=== PATIENT | male | born 1965 | race Caucasian/White ===

== ENCOUNTER 2021-08-03 13:08 | Emergency (ER) | payer MEDICARE, SELFPAY ==
[2021-08-03 13:19] VITALS: BP 142/87; PULSE 92; RESP 16; TEMP 36.8; O2SAT 98
--- NOTE | 2021-08-03 13:44 | ED.DENTAL ---
HPI - Dental/Oral General Chief complaint: Dental/Oral Stated complaint: toothache Time Seen by Provider: 08/03/21 13:11 Source: patient and RN notes reviewed Mode of arrival: ambulatory Limitations: no limitations History of Present Illness Complaint: tooth pain Onset (ago): day(s) (1) Duration: constant Severity: moderate Severity scale (1-10): 7 Relieving factors: NSAIDs Exacerbating factors: chewing Context: history of dental caries Related Data Allergies Allergy/AdvReac Type Severity Reaction Status Date / Time prednisone Allergy Unknown Verified 08/03/21 13:23 Review of Systems Review of Systems: All systems reviewed & are unremarkable except as noted in HPI and below ENT: Comments: toothache. PMFSH Past Medical History Medical History Toothache Exam Const: General: no acute distress Nutritional Appearance: well nourished Orientation/consciousness: patient oriented x3 Limitations: no limitations HENMT: Ears: external ears normal and TM's normal bilaterally General nose exam: Normal external nose present and Normal nares present Mouth: Yes moist mucous membranes Other: multiple carious teeth. Eyes: Conjunctivae: conjunctivae normal Pupils: Equal, round and reactive pupils present EOM: EOMs intact bilaterally Neck: Neck: normal visual inspection and no lymphadenopathy Chest: Chest palpation & inspection: normal inspection of the chest Resp: Effort & Inspection: normal respiratory effort Auscultation: clear to auscultation bilaterally Cardio: Rate: regular rate Rhythm: regular rhythm GI: Inspection: distended GI Palp: Yes Soft to palpation and Yes Tenderness to palpation present (GI) Percussion: Yes normal to percussion : General: Yes no CVA tenderness Male General Exam: Yes normal external exam Testes: Testes normal Back/Spine/Pelvis: Back: no CVA tenderness Skin: General skin exam: normal color Rashes: no rashes Neuro: General: patient oriented x3, moves all extremities, no meningeal signs, no focal motor deficits and CN's II-XI intact bilaterally Extrem: General: normal to inspection and no pedal edema Psych: Appearance: grossly normal and well kempt Mental Status: mental status grossly normal Affect: normal affect Thought content: Yes Normal thought content present Course Course Emergency Course: pt was stable and less pain-ful in the ED. Reevaluation(s) Reevaluation #1: VSS. pt was comfortable in the ED. Date: 08/03/21 Time: 13:54 Vital Signs Vital signs: Vital Signs Temperature 36.8 C 08/03/21 13:19 Pulse Rate 92 08/03/21 13:19 Respiratory Rate 16 08/03/21 13:19 Blood Pressure 142/87 H 08/03/21 13:19 Pulse Oximetry 98 08/03/21 13:19 Temperature 36.8 C 08/03/21 13:19 Pulse Rate 92 08/03/21 13:19 Respiratory Rate 16 08/03/21 13:19 Blood Pressure 142/87 H 08/03/21 13:19 Pulse Oximetry 98 08/03/21 13:19 MDM - Dental/Oral Differential Diagnosis Differential diagnosis: Likely dental caries and toothache Medical Records Attestation: I reviewed the patient's medical records. Critical Care Time Critical Care Time Critical Care Time: No Total Critical Care Time: 0 Discharge Plan Discharge Clinical Impression: Toothache, Dental caries Patient Disposition: Home, Self-Care Condition: Stable Instructions: Antibiotic Form, Toothache (ED) Additional Instructions: Home. May RTC prn. Dentist in 1-2 days. Rx below. Prescriptions: New amoxicillin 875 mg tablet 875 mg PO Q12H Qty: 20 RF: 0 ibuprofen 800 mg tablet 800 mg PO TID Qty: 20 RF: 0 omeprazole magnesium [Prilosec OTC] 20 mg tablet,delayed release (DR/EC) 20 mg PO BID Qty: 20 RF: 0 Follow-up/Referrals: Emily,MD Marquis [Primary Care Provider] - Stand Alone Forms: Work/School Release IP Time of Disposition: 14:00
[2021-08-03] MEDS: KETOROLAC (*BKC) 60 MG/2 ML VIAL IM (13:56)
[2021-08-03 14:19] VITALS: BP 123/83; PULSE 75; RESP 16; O2SAT 100
== END 2021-08-03 14:20 | disposition home or self-care (01) ==
PROVIDERS: Emergency Provider Emergency Medicine; PCP Family Medicine
DX: K08.89 Other specified disorders of teeth and supporting structures (principal); K02.9 Dental caries, unspecified
CPT/HCPCS: 96372; 99283; J1885

== ENCOUNTER 2021-09-18 16:04 | Emergency (ER) | payer MEDICARE, SELFPAY ==
[2021-09-18 16:20] VITALS: PULSE 83; RESP 18; TEMP 37; O2SAT 98
--- NOTE | 2021-09-18 16:34 | PC.NURSE ---
Initial call made to [facility] per Dr. Lyle request to arrange for transport. No US available at this time.
[2021-09-18] MEDS: KETOROLAC (*BKC) 60 MG/2 ML VIAL IM (16:50)
--- NOTE | 2021-09-18 16:52 | PC.NURSE ---
Pt requesting to go to [facility] [place] in [place] since we are unable to perform US. Dr. Lyle notified.
--- NOTE | 2021-09-18 17:10 | PC.NURSE ---
[facility] did not have in house US available. Dr. Lyle and pt notified. Pt requested to go to [facility].
--- NOTE | 2021-09-18 17:18 | PC.NURSE ---
[facility] did not have in house US available. Dr. Lyle and pt notified. Per Dr. Lyle pt will need to go to [facility] or [place] for further workup.
--- NOTE | 2021-09-18 17:24 | PC.NURSE ---
Pt notified of options to go to [place], [place], or [facility] for further workup. Pt stated he would just go home and f/u with PCP in the morning. Dr. Lyle notified and stated pt would need to sign AMA form.
[2021-09-18 17:29] LABS: Basophils Absolute Auto 0.05 K/mm3 (0.00-0.10); Basophils Percent Auto 0.6 % (0.0-1.0); Eosinophils Absolute Auto 0.12 K/mm3 (0.02-0.50); Eosinophils Percent Auto 1.5 % (1.0-6.0); Hematocrit 42.3 % (40.0-54.0); Hemoglobin 13.7 g/dL (14.0-18.0); Immature Granulocyte Absolute 0.07 K/mm3 (0.00-0.00); Immature Granulocyte Percent A 0.9 % (0.0-0.0); Lymphocytes Percent Auto 18.8 % (18.0-42.0); Mean Corpuscular HGB Conc 32.4 g/dL (32.0-36.0); Mean Corpuscular Hemoglobin 30.7 pg (27.0-31.0); Mean Corpuscular Volume 94.8 fL (78.0-102.0); Mean Platelet Volume 10.6 fl (8.7-11.0); Monocytes Absolute Auto 0.51 K/mm3 (0.10-0.90); Monocytes Percent Auto 6.4 % (2.0-11.0); Neutrophils Absolute Auto 5.7 K/mm3 (1.7-7.2); Neutrophils Percent Auto 71.8 % (50.0-70.0); Platelet Count Result 183 K/mm3 (150-420); Red Blood Count 4.46 M/mm3 (4.70-6.10); Red Cell Distribution Width 12.3 % (11.6-14.4)
== END 2021-09-18 17:50 | disposition left against medical advice (07) ==
LOC: CHSED 16:06
PROVIDERS: Emergency Provider Emergency Medicine; PCP Family Medicine
DX: R10.9 Unspecified abdominal pain (principal)
CPT/HCPCS: 36415; 85025; 96372; 99199; 99283; J1885

== ENCOUNTER 2021-12-29 20:30 | Emergency (ER) | payer MEDICARE, SELFPAY ==
--- NOTE | ~2021-12-29 | CT_ITS ---
EXAMINATION: CT pelvis wo con DATE: 12/29/2021 22:53 INDICATION: Left pelvic pain. Fall. TECHNIQUE: Computed tomography (CT) of the pelvis was performed without intravenous contrast. Automat ed exposure control and iterative reconstruction technique were employed. The dose-length product was 921.30 mGy-cm. COMPARISON: None FINDINGS: There is a stent in right common iliac artery. There are bilateral inguinal hernias contain ing fat. There are no dilated loops of bowel. The appendix is normal. There are no pathologically enl arged lymph nodes. There is no free intraperitoneal fluid. Bone alignment is normal. No fracture. The re is moderate osteoarthritis of the hips. There is a benign bone island in right inferior pubic juventino s. IMPRESSION: 1. No fracture. 2. Moderate osteoarthritis of the hips. 3. Bilateral inguinal hernias containing fat. Reviewed, dictated and finalized at location A. FILTER OPERATOR
--- NOTE | ~2021-12-29 | CT_ITS ---
EXAMINATION: CT lumbar spine wo con DATE: 12/29/2021 22:53 INDICATION: Low back pain. Fall. TECHNIQUE: Computed tomography (CT) of the lumbar spine was performed without intravenous contrast. A utomated exposure control and iterative reconstruction technique were employed. The dose-length produ ct was 1268.47 mGy-cm. COMPARISON: Lumbar spine radiographs 01/01/2012 FINDINGS: There are multiple nonobstructing stones in the kidneys measuring up to 6 mm on the left. T here is a stent in right common iliac artery. Partially visualized are epidural electrodes. Partially visualized is an intrathecal catheter. Bone alignment is normal. Vertebral body heights are normal. There is mildly decreased disc height at L4-L5 and L5-S1. The following disc levels are specifically discussed: L1-L2: The disc does not extend beyond the endplate margin. There is moderate right and mild left fac et joint osteoarthritis. There is no neural foraminal stenosis. There is no central canal stenosis. L2-L3: The disc is mildly bulging. There is mild right and moderate left facet joint osteoarthritis. There is mild bilateral neural foraminal stenosis. There is no central canal stenosis. L3-L4: The disc is bulging. There is mild bilateral facet joint osteoarthritis. There is mild bilater al neural foraminal stenosis. There is mild central canal stenosis. L4-L5: The disc is bulging. There is mild bilateral facet joint osteoarthritis. There is mild right a nd moderate left neural foraminal stenosis. There is mild central canal stenosis. L5-S1: The disc is bulging. There is mild bilateral facet joint osteoarthritis. There is mild bilater al neural foraminal stenosis. There is mild central canal stenosis. IMPRESSION: 1. Mild lumbar spondylosis. Reviewed, dictated and finalized at location A. SION CONTROLLER IMPRESSION: 1. Mild lumbar spondylosis.
[2021-12-29 21:03] VITALS: BP 124/67; PULSE 108; RESP 19; TEMP 36.9; O2SAT 96
--- NOTE | 2021-12-29 21:16 | ED.FALL ---
HPI - Fall General Chief Complaint: Fall Stated Complaint: fell down stairs Time Seen by Provider: 12/29/21 20:33 Source: patient Mode of arrival: ambulatory Limitations: no limitations History of Present Illness HPI Narrative: 52-year-old man with a history of chronic low back pain status post stimulator and status post pain pump comes in today complaining of pain in his left posterior hip and pelvis and his low back after he fell down some steps approximately 20 minutes prior to arrival. States that his feet slipped as he was going down the steps and he landed on his backside. He denies any numbness, weakness or tingling other than the weakness that has been extent in his left leg after a workplace injury years ago. He denies other injuries. complaint: fall Onset (ago): minute(s) (20) Fall from: standing Fall witnessed: no Place fall occurred: home Loss of consciousness: none Prolonged down time: no Symptoms prior to fall: none Location of injury: back and pelvis Severity scale (1-10): 10 Quality: sharp and aching Associated symptoms (after fall): denies Related Data Allergies Allergy/AdvReac Type Severity Reaction Status Date / Time prednisone Allergy Unknown Verified 12/29/21 21:12 Review of Systems Review of Systems: All systems reviewed & are unremarkable except as noted in HPI and below Cardiovascular: Cardiovascular: Denies chest pain Respiratory: Respiratory: Denies cough and Denies dyspnea Gastrointestinal: Gastrointestinal: Denies abdominal pain, Denies nausea and Denies vomiting Genitourinary: Genitourinary: Denies hematuria Integumentary/Breasts: Skin/Breast: Denies erythema and Denies rash Neurologic: Reports as per HPI, Denies dizziness, Denies syncope, Reports focal weakness and Denies numbness Hematologic/Lymphatic: Hematologic/Lymphatic: Denies easy bleeding and Denies easy bruising PMF Past Medical History Medical History (Updated 12/29/21 @ 23:32 by Seth Doe MD) Chronic low back pain Toothache Social History Social History (Updated 12/29/21 @ 21:26 by Seth Doe MD) Smoking status: Current every day smoker Tobacco type: smokeless tobacco Alcohol intake: former Substance use: never Living arrangements: alone Exam Const: General: healthy appearing and alert Orientation/consciousness: patient oriented x3 Limitations: no limitations Other: Moderate acute distress. Resp: Effort & Inspection: normal respiratory effort and not labored Auscultation: clear to auscultation bilaterally, no rales, no rhonchi and no wheezes Cardio: Rate: regular rate Rhythm: regular rhythm Heart sounds: no murmurs Skin: General skin exam: normal color, no jaundice and no pallor Rashes: no rashes Neuro: General: patient oriented x3, moves all extremities, no focal motor deficits and CN's II-XI intact bilaterally Speech: normal speech Extrem: General: normal to inspection and no clubbing, cyanosis or edema Psych: Appearance: grossly normal and well kempt Mental Status: mental status grossly normal Affect: normal affect Attitude: cooperative Thought content: Yes Normal thought content present Course Vital Signs Vital signs: Vital Signs Temperature 36.9 C 12/29/21 21:03 Pulse Rate 108 H 12/29/21 21:03 Respiratory Rate 19 12/29/21 21:03 Blood Pressure 124/67 12/29/21 21:03 Pulse Oximetry 96 12/29/21 21:03 Temperature 36.9 C 12/29/21 21:03 Pulse Rate 108 H 12/29/21 21:03 Respiratory Rate 19 12/29/21 21:03 Blood Pressure 124/67 12/29/21 21:03 Pulse Oximetry 96 12/29/21 21:03 Discharge Plan Discharge Clinical Impression: Contusion of back Qualifiers: Encounter type: initial encounter Laterality: left Qualified Code(s): S20.222A - Contusion of left back wall of thorax, initial encounter Low back strain Qualifiers: Encounter type: initial encounter Qualified Code(s): S39.012A - Strain of muscle, fascia and tendon of low
[2021-12-29] MEDS: KETOROLAC (*BKC) 60 MG/2 ML VIAL IM (21:40)
[2021-12-29] MEDS: HYDROcodone/acetaminophen (*CRX) 5-325 MG TABLET 1 TAB PO (23:01)
[2021-12-29 23:47] VITALS: BP 164/83; PULSE 93; RESP 16; TEMP 37.2; O2SAT 96
== END 2021-12-30 00:22 | disposition home or self-care (01) ==
PROVIDERS: Emergency Provider Emergency Medicine; PCP Family Medicine
DX: S20.222A Contusion of left back wall of thorax, initial encounter (principal); S39.012A Strain of muscle, fascia and tendon of lower back, initial encounter; W10.9XXA Fall (on) (from) unspecified stairs and steps, initial encounter
CPT/HCPCS: 72131; 72192; 96372; 99284; A9270; J1885

== ENCOUNTER 2022-01-12 17:29 | Emergency (ER) | payer MEDICARE, SELFPAY ==
--- NOTE | ~2022-01-12 | CT_ITS ---
EXAMINATION: CT abdomen pelvis w con DATE: 01/12/2022 19:15 INDICATION: Lower abdominal pain for 1.5 months TECHNIQUE: Computed tomography (CT) of the abdomen and pelvis was performed with 100 CC Omnipaque 350 intravenous contrast. Automated exposure control and iterative reconstruction technique were employe d. Exam dose: 1240.91 mGy-cm total exam DLP. COMPARISON: 12/29/2021 CT pelvis FINDINGS: The lung bases are clear. Normal heart size. No pericardial or pleural effusion. There is contraction of the gallbladder. The gallbladder wall measures approximately 3 mm thickness w hich may be due to chronic cholecystitis; the thickness appears more prominent than expected merely f or lack of distention. No obvious gallstones are noted but ultrasound would be more sensitive for det ection of gallstones. No pericholecystic fluid collection. No bile duct dilatation. No hepatic, splenic, pancreatic, adrenal space-occupying mass lesion. Approximately 1 cm hypoenhancing area in the anterior mid left kidney with attenuation 32 Hounsfield units. This is indeterminate. Probable 4.5 mm mid to lower anterior left renal cysts, possibly smaller lower pole left renal cyst. There are 2 approximately 3.5 mm nonobstructing left renal calculi. There are 4 nonobstructing right renal calculi measuring up to approximately 3.7 mm maximal dimension. No ureteral calculus or hydrour eteronephrosis. Normal caliber and atherosclerotic calcification of the abdominal aorta. In the right common iliac en dovascular stent. No intraperitoneal or retroperitoneal or pelvic mass lesion or adenopathy or ascite s is detected. The urinary bladder and prostate gland appear unremarkable for age. Bilateral fat-containing inguinal hernias. Normal appendix. No bowel obstruction, bowel wall thickening, pneumatosis or intraperitoneal free air . Very small fat-containing umbilical hernia. Battery packs are noted in the right anterior and left posterior lateral abdominal lewis, each with w ith leads extending into thoracic spinal canal. . Approximately 9 mm T11 osteosclerotic lesion and 8 mm osteosclerotic lesion of the right inferior p ubic ramus are probably bone islands. Osteosclerotic prostate skeletal metastases are not definitivel y excluded. If clinically desired, repeat nuclear bone scan can differentiate these. IMPRESSION: Contracted gallbladder with borderline thickening of the wall; consider gallbladder ultr asound as clinically appropriate Nonspecific indeterminate 1 cm hypoenhancing lesion in the anterior mid left kidney A couple of 4.5 mm and smaller left renal cysts are suggested Bilateral nonobstructive nephrolithiasis Bilateral fat-containing inguinal hernias Nonspecific osteosclerotic lesions of T11 and right inferior pubic ramus significant statistically th ashutosh are most likely bone islands, but prostate metastases are not definitively excluded. Radiographic bone scan can't differentiate these possibilities if clinically desired 2 battery packs with leads into the thoracic spinal canal Reviewed, dictated and finalized at Location A. Reviewed, dictated and finalized at location A. IMPRESSION: Contracted gallbladder with borderline thickening of the wall; con printing press operator apprentice gallbladder ultrasound as clinically appropriate Nonspecific indeterminate 1 cm hypoenhancing lesion in the anterior mid left ki dney A couple of 4.5 mm and smaller left renal cysts are suggested Bilateral nonobstructive nephrolithiasis Bilateral fat-containing inguinal hernias Nonspecific osteosclerotic lesions of T11 and right inferior pubic ramus signif icant statistically these are most likely bone islands, but prostate metastases are not definitively excluded. Radiographic bone scan can't differentiate thes e
[2022-01-12 17:46] VITALS: BP 170/105; PULSE 117; RESP 20; TEMP 36.3; O2SAT 97
[2022-01-12 18:12] LABS: Basophils Absolute Auto 0.04 K/mm3 (0.00-0.10); Basophils Percent Auto 0.6 % (0.0-1.0); Eosinophils Absolute Auto 0.09 K/mm3 (0.02-0.50); Eosinophils Percent Auto 1.3 % (1.0-6.0); Hematocrit 39.7 % (40.0-54.0); Hemoglobin 13.5 g/dL (14.0-18.0); Immature Granulocyte Absolute 0.03 K/mm3 (0.00-0.00); Immature Granulocyte Percent A 0.4 % (0.0-0.0); Lymphocytes Absolute Auto 1.52 K/mm3 (1.10-4.50); Lymphocytes Percent Auto 21.3 % (18.0-42.0); Mean Corpuscular Hemoglobin 31.3 pg (27.0-31.0); Mean Corpuscular Volume 91.9 fL (78.0-102.0); Mean Platelet Volume 10.7 fl (8.7-11.0); Monocytes Absolute Auto 0.41 K/mm3 (0.10-0.90); Monocytes Percent Auto 5.7 % (2.0-11.0); Neutrophils Absolute Auto 5.1 K/mm3 (1.7-7.2); Neutrophils Percent Auto 70.7 % (50.0-70.0); Platelet Count Result 208 K/mm3 (150-420); Red Blood Count 4.32 M/mm3 (4.70-6.10); Red Cell Distribution Width 12.5 % (11.6-14.4); White Blood Count 7.1 K/mm3 (4.8-10.8)
[2022-01-12] MEDS: MORPHINE SULFATE (*CRX) 2 MG/ML INJ IV PUSH ×2 (18:12→19:23)
[2022-01-12 18:16] LABS: Add Urine Microscopic? NO; Appearance Urine Clear (Clear); Bilirubin Urine Negative (Negative); Blood Urine Negative (Negative); Color Urine Light Yellow (Yellow); Glucose Urine UA Negative (Negative); Ketones Urine Negative (Negative); Leukocyte Esterase Ur Negative (Negative); Nitrate Urine Negative (Negative); Protein Urine Negative (Negative); Specific Grav Ur >= 1.030 (1.010-1.020); Urobilinogen Urine 0.2 mg/dL (0.2-1.0)
[2022-01-12 18:24] LABS: Alanine Aminotransferase 38 U/L (16-63); Albumin Level 3.8 g/dL (3.4-5.0); Alkaline Phosphatase 87 U/L (46-116); Anion Gap 11 mmol/L (8-16); Aspartate Amino Transferase 16 U/L (15-37); Bilirubin,Total 0.3 mg/dL (0.00-1.00); Blood Urea Nitrogen 13 mg/dL (7-18); Calcium 10.4 mg/dL (8.5-10.1); Carbon Dioxide 25 mmol/L (21-32); Chloride 105 mmol/L (98-108); Estimated CRCL calculation 111 ml/min; Estimated Glomerular Filt Rate > 60; Glucose 121 mg/dL (70-99); Osmolality Calculated 293 mOsm/kg (285-295); Potassium 3.5 mmol/L (3.5-5.1); Sodium 141 mmol/L (136-145); Total Protein 6.7 g/dL (6.4-8.2)
--- NOTE | 2022-01-12 18:32 | ED.ABDPAIN ---
HPI - Abdominal Pain General Chief Complaint: Abdominal Pain Stated Complaint: lower gastro problems Source: patient Mode of arrival: ambulatory Limitations: no limitations History of Present Illness HPI narrative: this is a 56-year-old gentleman that presents with lower abdominal, the patient states that he has been having this abdominal discomfort off and on for over a month has an appointment with GI specialist on Friday, but the pain had been quite intense and could not wait till Friday presented to the ER. The patient states that there is no diarrhea constipation no nausea vomiting no fever chills no chest pain or shortness of breath. The patient was started on Protonix but that did not help and he currently stop taking the Protonix. There is no dysuria no hematuria no flank pain. MD elicited complaint: abdominal pain Onset (ago): hour(s) Pain Consistency: constant Location: periumbilical Severity: moderate Quality: aching Related Data Allergies Allergy/AdvReac Type Severity Reaction Status Date / Time prednisone Allergy Unknown Verified 01/12/22 17:51 Review of Systems Review of Systems: All systems reviewed & are unremarkable except as noted in HPI and below PMFSH Past Medical History Medical History Chronic low back pain Toothache Social History Social History Smoking status: Current every day smoker Tobacco type: smokeless tobacco Alcohol intake: former Substance use: never Exam Const: General: no acute distress and alert Orientation/consciousness: patient oriented x3 HENMT: Head: normal to inspection Eyes: Conjunctivae: conjunctivae normal Pupils: Equal, round and reactive pupils present Neck: Neck: normal visual inspection Chest: Chest palpation & inspection: normal inspection of the chest Resp: Effort & Inspection: normal respiratory effort Auscultation: clear to auscultation bilaterally Cardio: Rate: regular rate Rhythm: regular rhythm GI: GI Palp: Yes Soft to palpation and Yes Tenderness to palpation present (GI) Percussion: Yes normal to percussion : Testes: Testes normal Urinary Catheter: Urinary Catheter: patent and draining Back/Spine/Pelvis: Back: no CVA tenderness Skin: General skin exam: normal color Rashes: no rashes Neuro: General: patient oriented x3 and moves all extremities Extrem: General: normal to inspection and no pedal edema Psych: Mental Status: mental status grossly normal Affect: normal affect Course Course Emergency Course: Patient received IV morphine and pain has improved, CT scan of the abdomen and pelvis was reviewed with patient as well as blood work that was performed. Vital Signs Vital signs: Vital Signs Temperature 36.3 C L 01/12/22 17:46 Pulse Rate 117 H 01/12/22 17:46 Respiratory Rate 20 01/12/22 17:46 Blood Pressure 170/105 H 01/12/22 17:46 Pulse Oximetry 97 01/12/22 17:46 Temperature 36.3 C L 01/12/22 17:46 Pulse Rate 117 H 01/12/22 17:46 Respiratory Rate 20 01/12/22 17:46 Blood Pressure 170/105 H 01/12/22 17:46 Pulse Oximetry 97 01/12/22 17:46 MDM - Abdominal Pain Lab Data Result diagrams: 01/12/22 18:03 01/12/22 18:03 Labs: Lab Results 01/12/22 01/12/22 01/12/22 Range/Units 17:53 18:03 18:03 WBC 7.1 (4.8-10.8) K/mm3 RBC 4.32 L (4.70-6.10) M/mm3 Hgb 13.5 L (14.0-18.0) g/dL Hct 39.7 L (40.0-54.0) % MCV 91.9 (78.0-102.0) fL MCH 31.3 H (27.0-31.0) pg MCHC 34.0 (32.0-36.0) g/dL RDW 12.5 (11.6-14.4) % Plt Count 208 (150-420) K/mm3 MPV 10.7 (8.7-11.0) fl Immature Gran % (Auto) 0.4 H (0.0-0.0) % Neut % (Auto) 70.7 H (50.0-70.0) % Lymph % (Auto) 21.3 (18.0-42.0) % [place] % (Auto) 5.7 (2.0-11.0) % Eos % (Auto) 1.3 (1.0-6.0) % Baso % (Auto) 0.6 (0.0-1.0) % Lymph # (Au
[2022-01-12 18:40] LABS: CRP < 0.5 mg/dL (0.0-0.9)
[2022-01-12 19:14] VITALS: BP 150/70; PULSE 100; RESP 20; O2SAT 95
[2022-01-12 20:24] VITALS: BP 150/77; PULSE 70; RESP 20; TEMP 36.6; O2SAT 96
== END 2022-01-12 20:26 | disposition home or self-care (01) ==
PROVIDERS: Emergency Provider Emergency Medicine
DX: R10.33 Periumbilical pain (principal); N20.1 Calculus of ureter; F17.200 Nicotine dependence, unspecified, uncomplicated
CPT/HCPCS: 36415; 74177; 80053; 81003; 83605; 85025; 86140; 96374; 96376; 99284; J2270; Q9967

== ENCOUNTER 2022-01-15 22:22 | Emergency (ER) | payer MEDICARE, SELFPAY ==
--- NOTE | ~2022-01-15 | CT_ITS ---
EXAMINATION: CT abdomen pelvis wo con EXAM DATE: 01/15/2022 23:17 INDICATION: Flank pain known kidney stones with increased pain. TECHNIQUE: Spiral CT of the abdomen and pelvis was performed without contrast. Axial, coronal and sag ittal images were reviewed. The dose-length product (DLP) for this examination was 560.92 mGy-cm. T he exposure was tailored according to patient size (auto mA exposure control), and iterative reconstr uction (ASIR) was used as additional dose reduction technique. Comparison is made to prior examinatio n from 01/12/2022. FINDINGS: Scattered small bilateral calyceal stones. No hydronephrosis. Prostate normal in size. Th e bladder is unremarkable. The liver, spleen, adrenal glands and pancreas are unremarkable. Gallbla dder is unremarkable. No biliary obstruction. There is no retroperitoneal or pelvic lymphadenopathy . There is mild to moderate scattered arteriosclerotic disease. Right common iliac arterial stent. The appendix is normal. The stomach and small bowel are unremarkable. There is expected amount of c olonic stool. No free intraperitoneal gas. The heart is normal in size. There are no pericardial or pleural effusions. The lung bases are unremarkable. Moderate lumbar spondylosis. Spine stimula tor packs and leads. IMPRESSION: 1. Bilateral nephrolithiasis. No obstructive uropathy or acute findings. 2. Small inguinal fat-containing hernias. Reviewed, dictated and finalized at location G.
[2022-01-15 22:30] VITALS: BP 153/94; PULSE 87; RESP 18; TEMP 36; O2SAT 96
--- NOTE | 2022-01-15 22:40 | ED.ABDPAIN ---
HPI - Abdominal Pain General Chief Complaint: Urogenital-Male Stated Complaint: kidney stones Time Seen by Provider: 01/15/22 22:35 Source: patient Mode of arrival: ambulatory Limitations: no limitations History of Present Illness HPI narrative: Pt diagnosed with kidney stones 3 days ago here in ER, pressents with increased flank pain tonight. Pt had been doing well until this afternoon and the pain has gotten worse. Pt says tramadol not working anymore. Pt says he passed one stone but was told there are several. MD elicited complaint: flank pain Pertinent past history: kidney stones Pain Consistency: constant Location: L flank and R flank Severity: severe Quality: stabbing Radiation: L flank and R flank Migration to: suprapubic Exacerbating factors: nothing Relieving factors: nothing Associated symptoms: nausea Related Data Allergies Allergy/AdvReac Type Severity Reaction Status Date / Time prednisone Allergy Unknown Verified 01/15/22 22:37 Review of Systems Review of Systems: All systems reviewed & are unremarkable except as noted in HPI and below PMFSH Past Medical History Medical History Chronic low back pain Toothache Social History Social History Smoking status: Current every day smoker Tobacco type: smokeless tobacco Alcohol intake: former Substance use: never Exam Const: General: no acute distress Orientation/consciousness: patient oriented x3 Resp: Effort & Inspection: normal respiratory effort Auscultation: clear to auscultation bilaterally Cardio: Rate: regular rate Rhythm: regular rhythm GI: GI Palp: Yes Soft to palpation Auscultation: normal bowel sounds : General: Yes CVA tenderness Skin: General skin exam: normal color Neuro: General: patient oriented x3, moves all extremities and no focal motor deficits Extrem: General: normal to inspection Psych: Appearance: grossly normal Mental Status: mental status grossly normal Thought content: Yes Normal thought content present MDM - Abdominal Pain Medical Records Attestation: I reviewed the patient's medical records. Medical records narrative: on CT from the other day no ureteral stones noted just non obstructing stones in both kidneys Lab Data Result diagrams: 01/15/22 22:49 01/15/22 22:49 Labs: Lab Results 01/15/22 01/15/22 Range/Units 22:49 22:49 WBC Pending RBC Pending Hgb Pending Hct Pending MCV Pending MCH Pending MCHC Pending RDW Pending Plt Count Pending MPV Pending Immature Gran % (Auto) Pending Neut % (Auto) Pending Lymph % (Auto) Pending [place] % (Auto) Pending Eos % (Auto) Pending Baso % (Auto) Pending Lymph # (Auto) Pending [place] # (Auto) Pending Eos # (Auto) Pending Baso # (Auto) Pending Abs Immat Gran (auto) Pending Absolute Neuts (auto) Pending Absolute Nucleated RBC Pending Nucleated RBC % Pending Sodium Pending Potassium Pending Chloride Pending Carbon Dioxide Pending Anion Gap Pending BUN Pending Creatinine Pending Estim Creat Clear Calc Pending Estimated GFR Pending Glucose Pending Calculated Osmolality Pending Calcium Pending Total Bilirubin Pending AST Pending ALT Pending Alkaline Phosphatase Pending Total Protein Pending Albumin Pending Discharge Plan Discharge Prescriptions: No Action omeprazole magnesium [Prilosec OTC] 20 mg tablet,delayed release (DR/EC) 20 mg PO BID Qty: 20 RF: 0 tramadol [Ultram] 50 mg tablet 50 mg PO Q6H PRN (Reason: pain) Qty: 20 RF: 0 tamsulosin [Flomax] 0.4 mg capsule 0.4 mg PO DAILY Qty: 7 RF: 0
[2022-01-15 22:52] LABS: Basophils Absolute Auto 0.03 K/mm3 (0.00-0.10); Basophils Percent Auto 0.5 % (0.0-1.0); Eosinophils Absolute Auto 0.11 K/mm3 (0.02-0.50); Eosinophils Percent Auto 1.8 % (1.0-6.0); Hemoglobin 13.5 g/dL (14.0-18.0); Immature Granulocyte Absolute 0.03 K/mm3 (0.00-0.00); Immature Granulocyte Percent A 0.5 % (0.0-0.0); Lymphocytes Absolute Auto 1.56 K/mm3 (1.10-4.50); Lymphocytes Percent Auto 25.7 % (18.0-42.0); Mean Corpuscular HGB Conc 32.9 g/dL (32.0-36.0); Mean Corpuscular Hemoglobin 30.9 pg (27.0-31.0); Mean Corpuscular Volume 93.8 fL (78.0-102.0); Mean Platelet Volume 10.6 fl (8.7-11.0); Monocytes Absolute Auto 0.38 K/mm3 (0.10-0.90); Monocytes Percent Auto 6.3 % (2.0-11.0); Neutrophils Percent Auto 65.2 % (50.0-70.0); Platelet Count Result 210 K/mm3 (150-420); Red Blood Count 4.37 M/mm3 (4.70-6.10); Red Cell Distribution Width 12.7 % (11.6-14.4); White Blood Count 6.1 K/mm3 (4.8-10.8)
[2022-01-15] MEDS: KETOROLAC 30 MG/ML VIAL (*BKC) IV PUSH (23:06)
[2022-01-15] MEDS: ONDANSETRON INJ 4 MG/2 ML VIAL IV PUSH (23:07)
[2022-01-15 23:08] LABS: Alanine Aminotransferase 39 U/L (16-63); Albumin Level 3.7 g/dL (3.4-5.0); Alkaline Phosphatase 76 U/L (46-116); Anion Gap 6 mmol/L (8-16); Aspartate Amino Transferase 19 U/L (15-37); Bilirubin,Total 0.2 mg/dL (0.00-1.00); Blood Urea Nitrogen 13 mg/dL (7-18); Calcium 9.3 mg/dL (8.5-10.1); Carbon Dioxide 27 mmol/L (21-32); Chloride 105 mmol/L (98-108); Estimated Glomerular Filt Rate > 60; Glucose 107 mg/dL (70-99); Osmolality Calculated 286 mOsm/kg (285-295); Potassium 3.8 mmol/L (3.5-5.1); Sodium 138 mmol/L (136-145); Total Protein 6.9 g/dL (6.4-8.2)
[2022-01-15] MEDS: fentaNYL CITRATE INJ (*CRX) 100 MCG/2 ML VIAL 50 MCG IV PUSH (23:08)
[2022-01-15 23:47] LABS: Add Urine Microscopic? YES; Appearance Urine Clear (Clear); Bilirubin Urine Negative (Negative); Blood Urine Negative (Negative); Color Urine Yellow (Yellow); Glucose Urine UA Negative (Negative); Ketones Urine Trace (Negative); Leukocyte Esterase Ur Negative LEU/UL (Negative); Nitrate Urine Negative (Negative); Protein Urine Negative (Negative); Urobilinogen Urine 0.2 mg/dL (0.2-1.0)
[2022-01-15 23:55] LABS: Amorphous Sediment Urine Few; Bacteria Urine Trace /hpf; RBC Urine 0-2 /hpf (0-2); WBC Urine 0-3 /hpf (0-3)
[2022-01-16 00:03] VITALS: BP 146/98; PULSE 77; RESP 16; O2SAT 96
== END 2022-01-16 00:08 | disposition home or self-care (01) ==
PROVIDERS: Emergency Provider Emergency Medicine
DX: M54.50 Low back pain, unspecified (principal)
CPT/HCPCS: 36415; 74176; 80053; 81001; 85025; 96374; 96375; 99284; J1885; J2405; J3010

== ENCOUNTER 2022-02-15 14:32 | Emergency (ER) | payer MEDICARE, SELFPAY ==
[2022-02-15 14:45] VITALS: BP 144/81; PULSE 99; RESP 20; TEMP 37.1; O2SAT 96
[2022-02-15] MEDS: MAG HYDROX/ALUMINUM HYD/SIMETH 30 ML, PHENobarb/HYOSCY/ATROPINE/SCOP 32.4 MG, LIDOCAINE... PO (15:08)
[2022-02-15 15:16] LABS: Basophils Absolute Auto 0.04 K/mm3 (0.00-0.10); Basophils Percent Auto 0.6 % (0.0-1.0); Eosinophils Absolute Auto 0.07 K/mm3 (0.02-0.50); Eosinophils Percent Auto 1.1 % (1.0-6.0); Hematocrit 43.1 % (40.0-54.0); Hemoglobin 14.3 g/dL (14.0-18.0); Immature Granulocyte Absolute 0.03 K/mm3 (0.00-0.00); Immature Granulocyte Percent A 0.5 % (0.0-0.0); Lymphocytes Percent Auto 20.5 % (18.0-42.0); Mean Corpuscular HGB Conc 33.2 g/dL (32.0-36.0); Mean Corpuscular Volume 93.3 fL (78.0-102.0); Mean Platelet Volume 10.7 fl (8.7-11.0); Monocytes Absolute Auto 0.33 K/mm3 (0.10-0.90); Monocytes Percent Auto 5.2 % (2.0-11.0); Neutrophils Absolute Auto 4.6 K/mm3 (1.7-7.2); Neutrophils Percent Auto 72.1 % (50.0-70.0); Platelet Count Result 208 K/mm3 (150-420); Red Blood Count 4.62 M/mm3 (4.70-6.10); White Blood Count 6.3 K/mm3 (4.8-10.8)
--- NOTE | 2022-02-15 15:29 | ED.ABDPAIN ---
HPI - Abdominal Pain General Chief Complaint: Abdominal Pain Stated Complaint: Acidic stomache/joint pain Time Seen by Provider: 02/15/22 14:34 Source: patient and RN notes reviewed Mode of arrival: ambulatory Limitations: no limitations History of Present Illness MD elicited complaint: abdominal pain (mild epigastric and LLQ abdominal pain) Pertinent past history: gastritis Onset (ago): hour(s) (6) Pain Consistency: constant and colicky Location: epigastric and other (pt denied any acute chest pain or SOB.) Severity: similar to previous episodes Pain scale (0-10): 2 Quality: cramping, aching, fullness, dull and burning Radiation: none Migration to: no migration Exacerbating factors: eating Relieving factors: medication Associated symptoms: nausea Related Data Home Medications Medication Instructions Recorded Confirmed metoclopramide HCl 10 mg PO DAILY 02/15/22 02/15/22 Allergies Allergy/AdvReac Type Severity Reaction Status Date / Time prednisone Allergy Unknown Verified 01/15/22 22:37 Review of Systems Review of Systems: All systems reviewed & are unremarkable except as noted in HPI and below PMFSH Past Medical History Medical History Abdominal pain Chronic GERD Chronic low back pain Toothache Social History Social History Smoking status: Current every day smoker Tobacco type: smokeless tobacco Alcohol intake: former Substance use: never Exam Const: General: no acute distress and alert Nutritional Appearance: well nourished Orientation/consciousness: patient oriented x3 Limitations: no limitations HENMT: Head: normal to inspection Ears: external ears normal, TM's normal bilaterally and EAC's normal General nose exam: Normal external nose present and Normal nares present Face and sinus: normal facial exam and sinuses nontender Mouth: Yes moist mucous membranes Throat: posterior oropharynx normal Eyes: Conjunctivae: conjunctivae normal Pupils: Equal, round and reactive pupils present EOM: EOMs intact bilaterally Neck: Neck: normal visual inspection and no lymphadenopathy Chest: Chest palpation & inspection: normal inspection of the chest Resp: Effort & Inspection: normal respiratory effort Auscultation: clear to auscultation bilaterally Cardio: Rate: regular rate Rhythm: regular rhythm GI: GI Palp: Yes Soft to palpation and Yes Tenderness to palpation present (GI) (minimal epigastric tenderness.) : General: Yes bladder normal to palpation and Yes no CVA tenderness Male General Exam: Yes normal external exam Back/Spine/Pelvis: Back: no CVA tenderness Skin: General skin exam: normal color Neuro: General: patient oriented x3, moves all extremities, no meningeal signs, no focal motor deficits and CN's II-XI intact bilaterally Extrem: General: normal to inspection and no pedal edema Psych: Appearance: grossly normal Mental Status: mental status grossly normal Affect: normal affect Attitude: cooperative Thought content: Yes Normal thought content present Course Course Emergency Course: Pt was stable in the ED. no acute GI loss, pain-free. Reevaluation(s) Date: 02/15/22 Time: 14:58 Vital Signs Vital signs: Vital Signs Temperature 37.1 C 02/15/22 14:45 Pulse Rate 99 02/15/22 14:45 Respiratory Rate 20 02/15/22 14:45 Blood Pressure 144/81 H 02/15/22 14:45 Pulse Oximetry 96 02/15/22 14:45 Temperature 37.1 C 02/15/22 16:07 Pulse Rate 99 02/15/22 16:07 Respiratory Rate 20 02/15/22 16:07 Blood Pressure 144/81 H 02/15/22 16:07 Pulse Oximetry 97 02/15/22 16:07 MDM - Abdominal Pain Lab Data Result diagrams: 02/15/22 15:11 02/15/22 15:11 Labs: Lab Results 02/15/22 02/15/22 02/15/22 Range/Units 15:11 15:11 15:11 WBC 6.3 (4.8-10.8) K/mm3 RBC 4.62 L (4.70-6.10) M/mm3 Hgb 14.3
[2022-02-15 15:31] LABS: Alanine Aminotransferase 40 U/L (16-63); Albumin Level 3.8 g/dL (3.4-5.0); Alkaline Phosphatase 72 U/L (46-116); Anion Gap 7 mmol/L (8-16); Aspartate Amino Transferase 20 U/L (15-37); Bilirubin,Total 0.4 mg/dL (0.00-1.00); Blood Urea Nitrogen 13 mg/dL (7-18); Calcium 9.3 mg/dL (8.5-10.1); Carbon Dioxide 24 mmol/L (21-32); Chloride 107 mmol/L (98-108); Estimated CRCL calculation 103 ml/min; Estimated Glomerular Filt Rate > 60; Glucose 110 mg/dL (70-99); Lipase 102 U/L (73-393); Osmolality Calculated 287 mOsm/kg (285-295); Potassium 3.8 mmol/L (3.5-5.1); Sodium 138 mmol/L (136-145)
[2022-02-15 15:37] LABS: Lactic Acid Reflex 1.5 mmol/L (0.4-2.0)
--- NOTE | 2022-02-15 15:40 | PC.NURSE ---
pt ambulated to bathroom,
[2022-02-15 16:07] VITALS: BP 144/81; PULSE 99; RESP 20; TEMP 37.1; O2SAT 97
== END 2022-02-15 16:10 | disposition home or self-care (01) ==
PROVIDERS: Emergency Provider Emergency Medicine; PCP Family Medicine
DX: K21.9 Gastro-esophageal reflux disease without esophagitis (principal)
CPT/HCPCS: 36415; 80053; 83605; 83690; 85025; 99283; A9270

== ENCOUNTER 2022-09-04 20:43 | Emergency (ER) | payer MEDICARE, SELFPAY ==
--- NOTE | ~2022-09-04 | XR_ITS ---
EXAM: XR lumbar spine 2-3V DATE: 09/04/2022 21:38 HISTORY: pain` . COMPARISON: CT L-spine 12/29/2021. FINDINGS: Left posterior stimulator, leads enter the spinal canal at T12-L1 and traverse out of the f [id number] superiorly. Right posterior drug pump, catheter appears to approach the lumbar spine at the L3-4 level and traverses superiorly, termination not confidently visualized. 5 nonrib-bearing lum bar-type vertebral bodies. Pedicles intact. Normal vertebral body alignment. Vertebral body heights p reserved. Multilevel disc space narrowing and marginal osteophytosis, moderate at L5-S1. Mild lower l umbar facet sclerosis and interspinous narrowing. No fracture or dislocation. Right common iliac sten t. Atherosclerotic vascular calcification. IMPRESSION: No acute fracture or traumatic malalignment detected in the lumbar spine. Reviewed, dictated and finalized at location K. [employer]
[2022-09-04 21:18] VITALS: BP 140/90; PULSE 80; RESP 20; TEMP 36.7; O2SAT 98
[2022-09-04 21:37] LABS: Add Urine Microscopic? NO; Appearance Urine Clear (Clear); Bilirubin Urine Negative (Negative); Blood Urine Negative (Negative); Color Urine Yellow (Yellow); Glucose Urine UA Negative (Negative); Ketones Urine Negative (Negative); Leukocyte Esterase Ur Negative LEU/UL (Negative); Nitrate Urine Negative (Negative); Protein Urine Negative (Negative); Specific Grav Ur 1.015 (1.010-1.020); Urobilinogen Urine 0.2 mg/dL (0.2-1.0); pH Urine 6.5 (5.0-8.0)
[2022-09-04] MEDS: HYDROcodone/acetaminophen (*CRX) 5-325 MG TABLET 1 TAB PO (21:50)
[2022-09-04] MEDS: KETOROLAC 30 MG/ML VIAL (*BKC) IM (22:05)
--- NOTE | 2022-09-04 22:14 | ED.GENADULT ---
HPI - General Adult General Chief complaint: Back Pain/Injury Stated complaint: pinched nerve in right thigh History of Present Illness HPI narrative: José is a 56M with a PMH of chronic low back pain and GERD that presented to the ED with back pain. He has been doing a lot of deer hunting and his back started to hurt. It was worse today and radiated down the right leg and he has some numbness on his right thigh. He has not had any loss of bowel or bladder control. His left foot is weaker but he can still move it. There was no trauma, falls, injury fevers or chills. Related Data Home Medications Medication Instructions Recorded Confirmed furosemide 40 mg tablet 40 mg PO DAILY 09/04/22 09/04/22 tamsulosin 0.4 mg capsule 0.4 mg PO DAILY 09/04/22 09/04/22 Allergies Allergy/AdvReac Type Severity Reaction Status Date / Time prednisone Allergy Unknown Verified 01/15/22 22:37 Review of Systems Review of Systems: All systems reviewed & are unremarkable except as noted in HPI and below PMFSH Past Medical History Medical History Abdominal pain Chronic GERD Chronic low back pain Toothache Social History Social History Smoking status: Current every day smoker Tobacco type: smokeless tobacco Alcohol intake: former Substance use: never Exam Const: General: healthy appearing and no acute distress Nutritional Appearance: well nourished Orientation/consciousness: patient oriented x3 Limitations: no limitations and altered mental status HENMT: Head: normal to inspection Ears: external ears normal Face/Nose/Sinus: Normal external nose present Eyes: Conjunctivae: conjunctivae normal Pupils: Equal, round and reactive pupils present Neck: Neck: normal visual inspection Chest: Chest palpation & inspection: normal inspection of the chest Resp: Effort & Inspection: normal respiratory effort Cardio: Rate: regular rate Back/Spine/Pelvis: Other: TTP in the paraspinal muscles bilaterally. TTP over L4 and L5. Globally decreased ROM in the lumbar spine. Skin: General skin exam: normal color Neuro: General: patient oriented x3 and moves all extremities Cranial nerves: Yes Nystagmus not present Extrem: Other: 5/5 strength throughout the left leg. 5/5 strength throughout the right leg but there was 4/5 strength in dorsiflexion of the left foot. On the right thigh he was able to feel a que tip and sharp to the touch but is was more numb than the opposite side Psych: Mental Status: mental status grossly normal Course Vital Signs Vital signs: Vital Signs Temperature 98.0 F 09/04/22 21:18 Pulse Rate 80 09/04/22 21:18 Respiratory Rate 20 09/04/22 21:18 Blood Pressure 140/90 09/04/22 21:18 Pulse Oximetry 98 09/04/22 21:18 Oxygen Delivery Room Air 09/04/22 21:18 Temperature 98.0 F 09/04/22 21:18 Pulse Rate 80 09/04/22 21:18 Respiratory Rate 20 09/04/22 21:18 Blood Pressure 140/90 09/04/22 21:18 Pulse Oximetry 98 09/04/22 21:18 Oxygen Delivery Room Air 09/04/22 21:18 Medical Decision Making Vital Signs Vital Signs: Vital Signs Temperature 98.0 F 09/04/22 21:18 Pulse Rate 80 09/04/22 21:18 Respiratory Rate 20 09/04/22 21:18 Blood Pressure 140/90 09/04/22 21:18 Pulse Oximetry 98 09/04/22 21:18 Oxygen Delivery Room Air 09/04/22 21:18 Temperature 98.0 F 09/04/22 21:18 Pulse Rate 80 09/04/22 21:18 Respiratory Rate 20 09/04/22 21:18 Blood Pressure 140/90 09/04/22 21:18 Pulse Oximetry 98 09/04/22 21:18 Oxygen Delivery Room Air 09/04/22 21:18 Lab Data Labs: Lab Results 09/04/22 Range/Units 21:32 Urine Color Yellow (Yellow) Urine Appearance Clear (Clear) Urine pH 6.5 (5.0-8.0) Ur Specific [place] 1.015 (1.010-1.020) Urine Protein Negative (Negative) Urine Glucose (U
[2022-09-04 22:31] VITALS: BP 130/90; PULSE 100; RESP 16; TEMP 36.6; O2SAT 98
== END 2022-09-04 22:31 | disposition home or self-care (01) ==
PROVIDERS: Emergency Provider Family Medicine
DX: M54.16 Radiculopathy, lumbar region (principal); K21.9 Gastro-esophageal reflux disease without esophagitis; F17.200 Nicotine dependence, unspecified, uncomplicated
CPT/HCPCS: 72100; 81003; 96372; 99283; A9270; J1885

== ENCOUNTER 2023-01-04 21:43 | Emergency (ER) | payer MEDICARE, SELFPAY ==
[2023-01-04 21:45] VITALS: BP 165/100; PULSE 100; RESP 20; TEMP 36.8; O2SAT 98
--- NOTE | 2023-01-04 21:53 | ED.BACK ---
HPI - Back Pain/Injury General Stated Complaint: Pinched Nerve Time Seen by Provider: 01/04/23 21:49 Source: patient Mode of arrival: ambulatory Limitations: no limitations History of Present Illness HPI Narrative: this is a 57-year-old gentleman that presents with some back pain with a radiation to the right lower extremity into his foot has a history of low back pain with sciatica and in having a exacerbation of his sciatica. Currently there is no nausea vomiting no abdominal pain no flank pain does have a positive straight leg raising test on the right with no saddle paresthesias has good range of motion although tender in the lower extremities. Patient rates his pain at about a 9/10 and does have a follow-up appointment for nerve stimulator to be implanted. MD elicited complaint: back pain Pertinent past history: prior back pain Onset (ago): hour(s) Timing: constant Severity: severe Pain scale (0-10): 9 Quality: burning and sharp Location: lumbar spine Exacerbating factors: movement, sitting upright and coughing/sneezing Relieving factors: immobilization and sitting upright Context: while lifting, turning/twisting and bending Related Data Home Medications Medication Instructions Recorded Confirmed furosemide 40 mg tablet 40 mg PO DAILY 09/04/22 01/04/23 aspirin 325 mg tablet 325 mg PO DAILY 01/04/23 01/04/23 bupropion HCl 150 mg 24 hr tablet, 150 mg PO DAILY 01/04/23 01/04/23 extended release Allergies Allergy/AdvReac Type Severity Reaction Status Date / Time prednisone Allergy Unknown Verified 12/26/22 14:50 Review of Systems Review of Systems: All systems reviewed & are unremarkable except as noted in HPI and below PMFSH Past Medical History Medical History Abdominal pain Chronic GERD Chronic low back pain Toothache Surgical History Surgical History Spinal cord stimulator dysfunction Family History Family History Other Depression Diabetes mellitus Heart disease Hypertension Social History Social History Smoking status: Current every day smoker Tobacco type: smokeless tobacco Alcohol intake: former Substance use: never Living arrangements: alone Exam Const: General: healthy appearing Nutritional Appearance: well nourished Orientation/consciousness: patient oriented x3 Limitations: no limitations HENMT: Head: normal to inspection Ears: external ears normal Eyes: Conjunctivae: conjunctivae normal Pupils: Equal, round and reactive pupils present EOM: EOMs intact bilaterally Chest: Chest palpation & inspection: normal inspection of the chest Resp: Effort & Inspection: normal respiratory effort Cardio: Rate: regular rate Rhythm: regular rhythm GI: GI Palp: Yes Soft to palpation : General: Yes bladder normal to palpation Urinary Catheter: Urinary Catheter: patent and draining Back/Spine/Pelvis: Back: no CVA tenderness Skin: General skin exam: normal color Rashes: no rashes Wounds: no wounds Neuro: General: patient oriented x3, moves all extremities and no meningeal signs Extrem: General: normal to inspection Other: Lower back pain L4 right paravertebral tenderness with positive straight leg raising test on the right Psych: Mental Status: mental status grossly normal Affect: normal affect Attitude: cooperative Course Course Emergency Course: patient received 60mg IM Toradol along with 60mg IM muscle relaxer and after reassessment patient's pain level has a mildly improved. Critical Care Time Critical Care Time Critical Care Time: No Discharge Plan Discharge Clinical Impression: Sciatica Qualifiers: Laterality: right Qualified Code(s): M54.31 - Sciatica, right side Patient Disposition: Home, Self-Care Con
[2023-01-04] MEDS: KETOROLAC (*BKC) 60 MG/2 ML VIAL IM (22:01)
[2023-01-04] MEDS: ORPHENADRINE CITRATE 30 MG/ML 2 ML VIAL 60 MG IM (22:01)
[2023-01-04 22:22] VITALS: BP 152/98; PULSE 97; RESP 20; O2SAT 98
== END 2023-01-04 22:25 | disposition home or self-care (01) ==
PROVIDERS: Emergency Provider Emergency Medicine; PCP Family Medicine
DX: M54.31 Sciatica, right side (principal); M54.50 Low back pain, unspecified; F17.290 Nicotine dependence, other tobacco product, uncomplicated; Z79.82 Long term (current) use of aspirin
CPT/HCPCS: 96372; 99283; J1885; J2360

== ENCOUNTER 2023-02-22 21:28 | Emergency (ER) | payer MEDICARE, SELFPAY ==
--- NOTE | 2023-02-22 21:34 | WPDEDEXPGENP ---
HPI - General Ped General Chief complaint: Unspecified Stated complaint: Pt stated dehydrated History of Present Illness HPI narrative: 57yo man history of chronic back pain, indwelling spinal opioid pump, presents with new onset pain in his right buttock and leg, sciatica radiating down. This is not typical for him, he thinks he may have gotten dehydrated and be having some muscle spasm. no fevers, chills, numbness, weakness. Pain in his back is under control. Related Data Home Medications Medication Instructions Recorded Confirmed furosemide 40 mg tablet 40 mg PO DAILY 09/04/22 01/04/23 aspirin 325 mg tablet 325 mg PO DAILY 01/04/23 01/04/23 bupropion HCl 150 mg 24 hr tablet, 150 mg PO DAILY 01/04/23 01/04/23 extended release Allergies Allergy/AdvReac Type Severity Reaction Status Date / Time prednisone Allergy Unknown Verified 02/22/23 21:47 Pediatric Review of Systems All systems ED: reviewed and negative except as stated Constitutional: Denies fever or chills Cardiovascular: Denies chest pain or palpitations Respiratory: Denies cough or dyspnea Gastrointestinal: Denies abdominal pain, nausea or vomiting Musculoskeletal: Denies joint swelling or joint pain Integumentary: Denies rash PMFSH Past Medical History Medical History Abdominal pain Chronic GERD Chronic low back pain Toothache Surgical History Surgical History Spinal cord stimulator dysfunction Family History Family History Other Depression Diabetes mellitus Heart disease Hypertension Social History Social History Smoking status: Current every day smoker Tobacco type: smokeless tobacco Alcohol intake: former Substance use: never Living arrangements: alone Pediatric Exam General: General appearance: well-appearing, active, well-nourished and appears in pain Head: Head exam: normocephalic and atraumatic Eye: Eye exam: Present normal appearance and EOMI ENT: ENT exam: mucous membranes moist Neck: Neck exam: Present other (supple) Respiratory: Respiratory exam: Absent respiratory distress Cardiovascular: Cardiovascular exam: Present regular rate and normal rhythm Abdominal Exam: Abdominal exam: Absent distention Skin: Skin exam: Present warm and dry Medical Decision Making MDM Narrative Medical decision making narrative: radiating right leg pain DDx sciatica, muscle spasm, lumbar radiculopathy, muscle strain. No evidence of stroke. Medical Records Medical records reviewed: Yes I reviewed the external patient's medical records. Lab Data Lab results reviewed: Yes I reviewed the patient's lab results. Discharge Plan Discharge Clinical Impression: Sciatica, Acute pain of right thigh, Right lumbar radiculopathy Patient Disposition: Home, Self-Care Condition: Stable Additional Instructions: To help your sciatica, take the prescribed muscle relaxer as needed. Add ibuprofen 800 mg and acetaminophen 1000 mg every 6 hours as needed for comfort. Apply a heating pad to the low back and buttocks to help relax the muscle as well. Perform gentle stretching and range of motion of the back and hip. Drink plenty of fluids to keep ourself well hydrated. You should try to drink 4 pints (a half gallon) of water each day. Prescriptions: New methocarbamol 500 mg tablet 1,000 mg PO Q6H PRN (Reason: muscle pain) Qty: 40 0RF No Action furosemide 40 mg tablet 40 mg PO DAILY aspirin 325 mg Tablet 325 mg PO DAILY bupropion HCl 150 mg tablet extended release 24 hr 150 mg PO DAILY oxycodone-acetaminophen [Percocet] 5-325 mg tablet 1 tablet PO Q6H PRN (Reason: pain) Qty: 14 0RF cyclobenzaprine 10 mg tablet 10 mg PO TID Qty: 20 0RF Follow-up/
[2023-02-22 21:49] VITALS: BP 146/83; PULSE 95; RESP 18; TEMP 36.4; O2SAT 95
[2023-02-22] MEDS: ACETAMINOPHEN 500 MG TABLET 1000 MG PO (22:13)
[2023-02-22] MEDS: methocarbamoL 500 MG TABLET 1000 MG PO (22:13)
[2023-02-22] MEDS: KETOROLAC 30 MG/ML VIAL (*BKC) IV PUSH (22:16)
[2023-02-22 22:54] LABS: Basophils Absolute Auto 0.05 K/mm3 (0.00-0.10); Basophils Percent Auto 0.9 % (0.0-1.0); Eosinophils Absolute Auto 0.14 K/mm3 (0.02-0.50); Eosinophils Percent Auto 2.5 % (1.0-6.0); Hematocrit 38.8 % (40.0-54.0); Immature Granulocyte Absolute 0.04 K/mm3 (0.00-0.00); Immature Granulocyte Percent A 0.7 % (0.0-0.0); Lymphocytes Absolute Auto 1.71 K/mm3 (1.10-4.50); Lymphocytes Percent Auto 30.7 % (18.0-42.0); Mean Corpuscular HGB Conc 33.5 g/dL (32.0-36.0); Mean Corpuscular Hemoglobin 30.8 pg (27.0-31.0); Mean Corpuscular Volume 91.9 fL (78.0-102.0); Mean Platelet Volume 11.1 fl (8.7-11.0); Monocytes Absolute Auto 0.46 K/mm3 (0.10-0.90); Monocytes Percent Auto 8.3 % (2.0-11.0); Neutrophils Absolute Auto 3.2 K/mm3 (1.7-7.2); Neutrophils Percent Auto 56.9 % (50.0-70.0); Platelet Count Result 212 K/mm3 (150-420); Red Blood Count 4.22 M/mm3 (4.70-6.10); Red Cell Distribution Width 12.6 % (11.6-14.4); White Blood Count 5.6 K/mm3 (4.8-10.8)
[2023-02-22 23:07] LABS: Alanine Aminotransferase 34 U/L (16-63); Albumin Level 3.6 g/dL (3.4-5.0); Alkaline Phosphatase 83 U/L (46-116); Anion Gap 7 mmol/L (8-16); Aspartate Amino Transferase 24 U/L (15-37); Bilirubin,Total 0.3 mg/dL (0.00-1.00); Blood Urea Nitrogen 11 mg/dL (7-18); Calcium 9.6 mg/dL (8.5-10.1); Carbon Dioxide 26 mmol/L (21-32); Chloride 108 mmol/L (98-108); Estimated CRCL calculation 102 ml/min; Estimated Glomerular Filt Rate > 60; Glucose 90 mg/dL (70-99); Osmolality Calculated 291 mOsm/kg (285-295); Sodium 141 mmol/L (136-145); Total Protein 6.7 g/dL (6.4-8.2)
[2023-02-22 23:08] VITALS: BP 148/86; PULSE 77; RESP 18; O2SAT 99
== END 2023-02-22 23:16 | disposition home or self-care (01) ==
PROVIDERS: Emergency Provider Emergency Medicine; PCP Family Medicine
DX: M54.30 Sciatica, unspecified side (principal); M79.651 Pain in right thigh; M54.16 Radiculopathy, lumbar region; F17.290 Nicotine dependence, other tobacco product, uncomplicated
CPT/HCPCS: 36415; 80053; 83735; 85025; 96374; 96375; 99284; A9270; J1100; J1885

== ENCOUNTER 2023-07-13 18:37 | Emergency (ER) | payer MEDICARE, SELFPAY ==
--- NOTE | ~2023-07-13 | CT_ITS ---
EXAMINATION: CT abdomen pelvis w con DATE: 07/13/2023 19:45 INDICATION: Epigastric abdominal pain. TECHNIQUE: Computed tomography (CT) of the abdomen and pelvis was performed with 100 mL Omnipaque-350 intravenous contrast. Automated exposure control and iterative reconstruction technique were employe d. The dose-length product was 1068.81 mGy-cm. COMPARISON: 01/15/2022 FINDINGS: Lung bases are clear. Heart size is normal. No pericardial or pleural effusion. Liver, gallbladder, s pleen, pancreas and bilateral adrenal glands are normal. Bilateral nonobstructing nephrolithiasis wit h 4 stones measuring up to 2 mm the right kidney and a single 2 mm stone at the left kidney. Couple s ubcentimeter low-attenuation cyst in the left kidney. No hydronephrosis or or stones seen along the c ourse of the bilateral ureters. Moderate to large amount of stool scattered throughout the colon. Sma ll bowel and appendix are normal. Bladder is normal. No free intraperitoneal gas or fluid. No patholo gically enlarged abdominal or pelvic lymphadenopathy. Right common iliac artery stent. Small bilatera l fat-containing inguinal hernias. Spinal stimulator at the left flank with leads extending into the posterior central canal the lower thoracic spine extending to at least level of T8. There is also an intrathecal pain pump in the anterior right lower quadrant with catheter extending into the central c anal and cephalad to the level of T9. Mild lumbar and lower thoracic spondylosis. Mild left and moder ate right hip osteoarthritis. IMPRESSION: 1. Bilateral nonobstructing nephrolithiasis. 2. Small bilateral fat-containing inguinal hernias. Reviewed, dictated and finalized at location A.
--- NOTE | 2023-07-13 18:38 | ED.ABDPAIN ---
HPI - Abdominal Pain General Chief Complaint: Abdominal Pain Stated Complaint: pancreatitis flare up Time Seen by Provider: 07/13/23 18:38 History of Present Illness HPI narrative: Patient is a 57-year-old male with history of chronic lower back pain with pain pump in place, recurrent pancreatitis here with abdominal pain x1 day. Patient states that yesterday he ate some fatty foods and this morning he woke up with significant epigastric abdominal pain. He states that it feels very similar to his prior pancreatitis attacks . He notes that he was diagnosed by a specialist and has had infrequent flares after they told him how to manage his diet. He denies ever being hospitalized for pancreatitis in the past. He notes that his pain is located in his epigastric region, nonradiating, cramping in nature. He notes that is associated with some nausea and tingling in his bilateral hands and feet. He notes that this is very typical for him when his pancreas acts up. He notes that his only abdominal surgery was implantation of his pain pump into his RLQ. He had a normal bowel movement earlier today, continues to pass flatulence. No fever or chills. No chest pain, no shortness of breath, no cardiac history. Related Data Home Medications Medication Instructions Recorded Confirmed furosemide 40 mg tablet 40 mg PO DAILY 09/04/22 01/04/23 aspirin 325 mg tablet 325 mg PO DAILY 01/04/23 01/04/23 bupropion HCl 150 mg 24 hr tablet, 150 mg PO DAILY 01/04/23 01/04/23 extended release clopidogrel 75 mg tablet 75 mg PO DAILY 07/13/23 Allergies Allergy/AdvReac Type Severity Reaction Status Date / Time prednisone Allergy Unknown Verified 07/13/23 18:46 Review of Systems Review of Systems: CONSTITUTIONAL: Denies fever, chills, or sweats. ENT: Denies rhinorrhea, congestion, sore throat, or otalgia. CARDIOVASCULAR: Denies chest pain, palpitations, or edema. RESPIRATORY: Denies cough or dyspnea. GASTROINTESTINAL: abdominal pain, nausea, no vomiting or diarrhea. GENITOURINARY: Denies dysuria or hematuria. SKIN: Denies rash or itching. MUSCULOSKELETAL: Denies back pain, joint pain, or myalgia. NEUROLOGIC: Denies headache, numbness, or weakness. PSYCHIATRIC: Denies anxiety or depression. [facility] Past Medical History Medical History Abdominal pain Chronic GERD Chronic low back pain Toothache Surgical History Surgical History Spinal cord stimulator dysfunction Family History Family History Other Depression Diabetes mellitus Heart disease Hypertension Social History Social History Smoking status: Current every day smoker Tobacco type: smokeless tobacco Alcohol intake: former Substance use: never Living arrangements: alone Exam Narrative: CONSTITUTIONAL: Well-appearing, well-nourished, and in no acute distress. HEAD: Normocephalic, atraumatic. EYES: PERRLA and EOMI. ENT: Nares clear. Mucous membranes moist. NECK: Supple. CHEST: Clear to auscultation. No respiratory distress. HEART: Regular rate and rhythm. Normal peripheral pulses. ABDOMEN: Soft, tenderness over epigastrium and periumbilical region, negative hugo sign, no tenderness at mcburney's. No rebound or guarding. EXTREMITIES: Normal range of motion. No edema. SKIN: Warm, dry, no rash. NEURO: No focal deficits. Alert and oriented x3. PSYCH: Normal mood and affect. Course Course Emergency Course: Chart review performed. Patient has multiple prior ED visits. last ED visit for abdominal pain was in December 2021, at that time it was related to kidney stones. Chart notes history of GERD and chronic back pain. Patient seen evaluated, will do workup for possible pancreatitis as well as other intra-abdominal infectious process with a Kirsten
[2023-07-13 18:39] VITALS: BP 170/85; PULSE 84; RESP 20; TEMP 36.8; O2SAT 96
[2023-07-13 18:43] VITALS: BP 170/85; PULSE 84; RESP 20; TEMP 36.8; O2SAT 96
--- NOTE | 2023-07-13 18:45 | PC.NURSE ---
patient states he has a pain pump for L1-L4 that releases morphine.
--- NOTE | 2023-07-13 18:49 | ECG_ITS ---
Measurements Intervals [place] Rate: 75 P: 36 [place]: 203 QRS: -19 QRSD: 84 T: 21 QT: 360 QTc: 404 Interpretive Statements SINUS RHYTHM RSR' IN V1 OR V2, PROBABLY NORMAL VARIANT LOW QRS VOLTAGE IN PRECORDIAL LEADS CONSIDER ANTERIOR INFARCT, AGE INDETERMINATE INFERIOR INFARCT, AGE INDETERMINATE ABNORMAL ECG NO PREVIOUS ECG AVAILABLE FOR COMPARISON Electronically Signed On 07-13-2023 19:58:25 CDT by Kurt Clements D.O.
[2023-07-13 19:08] LABS: Basophils Absolute Auto 0.06 K/mm3 (0.00-0.10); Basophils Percent Auto 0.8 % (0.0-1.0); Eosinophils Absolute Auto 0.12 K/mm3 (0.02-0.50); Eosinophils Percent Auto 1.6 % (1.0-6.0); Hematocrit 40.6 % (40.0-54.0); Hemoglobin 13.7 g/dL (14.0-18.0); Immature Granulocyte Absolute 0.04 K/mm3 (0.00-0.00); Immature Granulocyte Percent A 0.5 % (0.0-0.0); Lymphocytes Absolute Auto 1.36 K/mm3 (1.10-4.50); Lymphocytes Percent Auto 17.9 % (18.0-42.0); Mean Corpuscular HGB Conc 33.7 g/dL (32.0-36.0); Mean Corpuscular Hemoglobin 30.9 pg (27.0-31.0); Mean Corpuscular Volume 91.6 fL (78.0-102.0); Monocytes Absolute Auto 0.61 K/mm3 (0.10-0.90); Neutrophils Absolute Auto 5.4 K/mm3 (1.7-7.2); Neutrophils Percent Auto 71.2 % (50.0-70.0); Platelet Count Result 233 K/mm3 (150-420); Red Blood Count 4.43 M/mm3 (4.70-6.10); Red Cell Distribution Width 12.5 % (11.6-14.4); White Blood Count 7.6 K/mm3 (4.8-10.8)
[2023-07-13] MEDS: ONDANSETRON INJ 4 MG/2 ML VIAL IV PUSH (19:13)
[2023-07-13] MEDS: MORPHINE SULFATE (*CRX) 4 MG/ML INJ IV PUSH (19:15)
[2023-07-13] MEDS: SODIUM CHLORIDE 0.9% IV 500 ML 999 ML IV CONT (19:21)
[2023-07-13 19:27] LABS: Alanine Aminotransferase 27 U/L (16-63); Albumin Level 3.5 g/dL (3.4-5.0); Alkaline Phosphatase 89 U/L (46-116); Anion Gap 9 mmol/L (8-16); Aspartate Amino Transferase 18 U/L (15-37); Bilirubin,Total 0.2 mg/dL (0.00-1.00); Blood Urea Nitrogen 9 mg/dL (7-18); Calcium 9.5 mg/dL (8.5-10.1); Carbon Dioxide 28 mmol/L (21-32); Chloride 105 mmol/L (98-108); Estimated CRCL calculation 116 ml/min; Estimated Glomerular Filt Rate > 60; Glucose 83 mg/dL (70-99); Lipase 38 U/L (16-77); Magnesium 1.8 mg/dL (1.8-2.4); Osmolality Calculated 291 mOsm/kg (285-295); Sodium 142 mmol/L (136-145); Total Protein 6.9 g/dL (6.4-8.2); Troponin I 4.3 ng/L (0.00-60.4)
[2023-07-13 19:30] LABS: Lactic Acid Reflex 0.8 mmol/L (0.4-2.0)
[2023-07-13 19:31] LABS: Appearance Urine Clear (Clear); Bilirubin Urine Negative (Negative); Blood Urine Negative (Negative); Color Urine Light Yellow (Yellow); Glucose Urine UA Negative (Negative); Ketones Urine Negative (Negative); Leukocyte Esterase Ur Negative LEU/UL (Negative); Nitrate Urine Negative (Negative); Protein Urine Negative (Negative); Urobilinogen Urine 0.2 mg/dL (0.2-1.0)
[2023-07-13 19:33] LABS: Add Urine Microscopic? NO
--- NOTE | 2023-07-13 19:33 | PC.NURSE ---
Pt to CT at this time.
[2023-07-13 19:54] VITALS: BP 143/74; PULSE 70; RESP 16; O2SAT 98
[2023-07-13] MEDS: LIDOCAINE HCL 2% VISC SOLN 15 ML UDC 20 ML PO (20:23)
[2023-07-13] MEDS: MAG HYDROX/AL HYDROX/SIMETH 30 ML UDC PO (20:24)
[2023-07-13] MEDS: PANTOPRAZOLE SODIUM IV 40 MG VIAL IV PUSH (20:25)
[2023-07-13 21:00] VITALS: BP 138/77; PULSE 66; RESP 16; TEMP 36.7; O2SAT 98
== END 2023-07-13 21:12 | disposition home or self-care (01) ==
PROVIDERS: Emergency Provider Student in an Organized Health Care Education/Training Program; PCP Family Medicine
DX: R10.13 Epigastric pain (principal); K59.00 Constipation, unspecified; F17.290 Nicotine dependence, other tobacco product, uncomplicated
CPT/HCPCS: 36415; 74177; 80053; 81003; 83605; 83690; 83735; 84484; 85025; 93005; 96374; 96375; 99284; A9270; C9113; J2270; J2405; J7040; Q9967

== ENCOUNTER 2023-07-21 14:35 | Emergency (ER) | payer MEDICARE, SELFPAY ==
[2023-07-21] VITALS (8 sets, daily range): BP systolic 120–157; BP diastolic 69–94; PULSE 60–71; RESP 17–18; TEMP 36.9–37; O2SAT 98–99
--- NOTE | ~2023-07-21 | CT_ITS ---
EXAMINATION: CT abdomen pelvis w con DATE: 07/21/2023 16:28 INDICATION: ALL OVER ABDOMEN PAIN TECHNIQUE: Computed tomography (CT) of the abdomen and pelvis was performed with 100 mL Omnipaque-350 intravenous contrast. Automated exposure control and iterative reconstruction technique were employe d. The dose-length product was 1159.69 mGy-cm. COMPARISON: 07/13/2023. FINDINGS: Lower thorax: Coronary artery calcification Liver: Normal. Biliary/Gallbladder: Gallbladder is normal. No bile duct dilation. Pancreas: No mass or duct dilation. Spleen: Normal. Adrenals:No mass. Kidneys: Bilateral nonobstructing calculi. Subcentimeter left renal hypodensities, too small to valorie cterize but likely represent cysts. No suspicious mass, obstructing stone, or hydronephrosis. GI tract: Mild distal esophageal and gastric wall edema. No small or large bowel dilation. Normal philly endix. Mesentery/Peritoneum: No ascites, mass, or free air. Retroperitoneum: No mass. Atherosclerotic abdominal aortic and/or arterial calcifications. Right comm on iliac stent Pelvis: Wall thickening of the urinary bladder. Soft Tissues: Uncomplicated fat-containing small umbilical and bilateral inguinal hernias. Right lowe r anterior abdominal drug pump, catheter extending into the thoracic canal. Left flank stimulator pac k with leads that terminate in the lower thoracic canal. Bones: No acute osseous finding. IMPRESSION: Mild esophagitis/gastritis. Bladder wall thickening may be secondary to outlet obstruction or cystitis. Reviewed, dictated and finalized at [facility].
--- NOTE | 2023-07-21 14:59 | ED.GENADULT ---
HPI - General Adult General Chief complaint: Abdominal Pain Stated complaint: Constipation Time Seen by Provider: 07/21/23 14:43 History of Present Illness HPI narrative: 57-year-old male presenting with multiple concerns. Patient states he has been experiencing abdominal pain for the past week that worsened this morning. He describes his pain as stabbing pain in his midepigastric region. He also states he has chronic arthralgias and swelling that flares from time to time. He states he believes he is experiencing a flare today. He denies any recent illnesses or trauma. Related Data Home Medications Medication Instructions Recorded Confirmed aspirin 325 mg tablet 325 mg PO DAILY 01/04/23 07/21/23 clopidogrel 75 mg tablet 75 mg PO DAILY 07/13/23 07/21/23 Allergies Allergy/AdvReac Type Severity Reaction Status Date / Time prednisone Allergy Unknown Verified 07/21/23 14:40 [facility] Past Medical History Medical History Abdominal pain Chronic GERD Chronic low back pain Toothache Surgical History Surgical History Spinal cord stimulator dysfunction Family History Family History Other Depression Diabetes mellitus Heart disease Hypertension Social History Social History Smoking status: Current every day smoker Tobacco type: smokeless tobacco Alcohol intake: former Substance use: never Living arrangements: alone Exam Narrative: He has tenderness palpation in all abdominal quadrants. A palpable pain pump. Negative Schwartz's. Negative McBurney's. All other systems otherwise unremarkable. Course Vital Signs Vital signs: Vital Signs Temperature 36.9 C 07/21/23 14:42 Pulse Rate 71 07/21/23 14:42 Respiratory Rate 18 07/21/23 14:42 Blood Pressure 157/94 H 07/21/23 14:42 Pulse Oximetry 98 07/21/23 14:42 Oxygen Delivery Room Air 07/21/23 14:42 Temperature 36.9 C 07/21/23 14:42 Pulse Rate 71 07/21/23 14:42 Respiratory Rate 18 07/21/23 14:42 Blood Pressure 157/94 H 07/21/23 14:42 Pulse Oximetry 98 07/21/23 14:42 Oxygen Delivery Room Air 07/21/23 14:42 Medical Decision Making MDM Narrative Medical decision making narrative: Mild gastritis on imaging. Otherwise unremarkable workup. Patient endorses feeling much better following medications administered in emergency department. He appears well. He is nontoxic appearing. His vitals are within normal limits and stable. His repeat abdominal exam is benign. He is sleeping upon at bedside re-evaluation. Will start on Pepcid and Carafate. He was given strict return precautions and follow-up instructions. He felt safe to proceed outpatient management. Vital Signs Vital Signs: Vital Signs Temperature 36.9 C 07/21/23 14:42 Pulse Rate 71 07/21/23 14:42 Respiratory Rate 18 07/21/23 14:42 Blood Pressure 157/94 H 07/21/23 14:42 Pulse Oximetry 98 07/21/23 14:42 Oxygen Delivery Room Air 07/21/23 14:42 Temperature 36.9 C 07/21/23 14:42 Pulse Rate 71 07/21/23 14:42 Respiratory Rate 18 07/21/23 14:42 Blood Pressure 157/94 H 07/21/23 14:42 Pulse Oximetry 98 07/21/23 14:42 Oxygen Delivery Room Air 07/21/23 14:42 Lab Data Lab results reviewed: Yes I reviewed the patient's lab results. 07/21/23 15:28 07/21/23 15:28 Labs: Lab Results 07/21/23 Range/Units 15:28 WBC 5.9 (4.8-10.8) K/mm3 RBC 4.27 L (4.70-6.10) M/mm3 Hgb 13.1 L (14.0-18.0) g/dL Hct 39.6 L (40.0-54.0) % MCV 92.7 (78.0-102.0) fL MCH 30.7 (27.0-31.0) pg MCHC 33.1 (32.0-36.0) g/dL RDW 12.7 (11.6-14.4) % Plt Count 208 (150-420) K/mm3 MPV 10.7 (8.7-11.0) fl Immature Gran % (Auto) 0.5 H (0.0-0.0) % Neut % (Au
[2023-07-21] MEDS: diphenhydrAMINE HCl INJ 50 MG/ML VIAL 25 MG IV PUSH (15:07)
[2023-07-21] MEDS: METOCLOPRAMIDE HCL INJ 10 MG/2 ML VIAL IV PUSH (15:08)
[2023-07-21] MEDS: KETOROLAC 30 MG/ML VIAL (*BKC) IV PUSH (15:09)
[2023-07-21 15:33] LABS: Basophils Absolute Auto 0.05 K/mm3 (0.00-0.10); Basophils Percent Auto 0.9 % (0.0-1.0); Eosinophils Percent Auto 1.7 % (1.0-6.0); Hematocrit 39.6 % (40.0-54.0); Hemoglobin 13.1 g/dL (14.0-18.0); Immature Granulocyte Absolute 0.03 K/mm3 (0.00-0.00); Immature Granulocyte Percent A 0.5 % (0.0-0.0); Lymphocytes Absolute Auto 1.22 K/mm3 (1.10-4.50); Lymphocytes Percent Auto 20.8 % (18.0-42.0); Mean Corpuscular HGB Conc 33.1 g/dL (32.0-36.0); Mean Corpuscular Hemoglobin 30.7 pg (27.0-31.0); Mean Corpuscular Volume 92.7 fL (78.0-102.0); Mean Platelet Volume 10.7 fl (8.7-11.0); Monocytes Absolute Auto 0.39 K/mm3 (0.10-0.90); Monocytes Percent Auto 6.6 % (2.0-11.0); Neutrophils Absolute Auto 4.1 K/mm3 (1.7-7.2); Neutrophils Percent Auto 69.5 % (50.0-70.0); Platelet Count Result 208 K/mm3 (150-420); Red Blood Count 4.27 M/mm3 (4.70-6.10); Red Cell Distribution Width 12.7 % (11.6-14.4); White Blood Count 5.9 K/mm3 (4.8-10.8)
[2023-07-21 15:47] LABS: Alanine Aminotransferase 28 U/L (16-63); Albumin Level 3.6 g/dL (3.4-5.0); Alkaline Phosphatase 79 U/L (46-116); Anion Gap 8 mmol/L (8-16); Aspartate Amino Transferase 17 U/L (15-37); Bilirubin,Total 0.3 mg/dL (0.00-1.00); Blood Urea Nitrogen 11 mg/dL (7-18); Calcium 10.1 mg/dL (8.5-10.1); Carbon Dioxide 25 mmol/L (21-32); Chloride 109 mmol/L (98-108); Estimated CRCL calculation 111 ml/min; Estimated Glomerular Filt Rate > 60; Glucose 88 mg/dL (70-99); Lipase 36 U/L (16-77); Osmolality Calculated 292 mOsm/kg (285-295); Potassium 4.5 mmol/L (3.5-5.1); Sodium 142 mmol/L (136-145); Total Protein 7.3 g/dL (6.4-8.2)
[2023-07-21 16:39] LABS: NT Pro B Type Natriuretic Pept 51 pg/mL (19.9-100)
[2023-07-21 16:43] LABS: Influenza A QL RT-PCR Negative (Negative); Influenza B QL RT-PCR Negative (Negative); SARS-CoV-2 RNA PCR Negative (Negative)
[2023-07-21 16:58] LABS: RSV RNA, RT-PCR Negative (Negative)
== END 2023-07-21 17:37 | disposition home or self-care (01) ==
PROVIDERS: Emergency Provider Emergency Medicine; PCP Family Medicine
DX: R10.9 Unspecified abdominal pain (principal); F17.219 Nicotine dependence, cigarettes, with unspecified nicotine-induced disorders; Z79.82 Long term (current) use of aspirin; Z79.899 Other long term (current) drug therapy; Z20.822 Contact with and (suspected) exposure to COVID-19
CPT/HCPCS: 36415; 74177; 80053; 83690; 83880; 85025; 87637; 96374; 96375; 99284; J1200; J1885; J2765; Q9967

== ENCOUNTER 2023-07-29 18:00 | Emergency (ER) | payer MEDICARE, SELFPAY ==
--- NOTE | ~2023-07-29 | CT_ITS ---
EXAMINATION: CT abdomen pelvis w con DATE: 07/29/2023 19:01 INDICATION: Generalized abdominal pain. Nausea. TECHNIQUE: Computed tomography (CT) of the abdomen and pelvis was performed with 100 mL Omnipaque 350 intravenous contrast. Automated exposure control and iterative reconstruction technique were employe d. The dose-length product was 1005.25 mGy-cm. COMPARISON: CT abdomen and pelvis 07/21/2023 FINDINGS: The visualized portions of the lung bases are clear without pneumonia or pleural effusion. The heart size is normal. No pericardial effusion. The liver, gallbladder, spleen, pancreas, and adre nal glands are normal. There are stones in the kidneys measuring up to 4 mm on the left. There are cy sts in left kidney measuring up to 12 mm. There is a stent in right common iliac artery. There is pro minent fat in the inguinal canals that may be hernias. There are no pathologically enlarged lymph nod es. There is no free intraperitoneal fluid. There are no dilated loops of bowel. The appendix is norm al. There is an intrathecal pump. Epidural electrodes are noted. There is mild bilateral gynecomastia . There is mild thoracic and lumbar IMPRESSION: 1. Prominent fat in the inguinal canals that may be hernias. Reviewed, dictated and finalized at location E.
[2023-07-29 18:00] VITALS: BP 144/89; PULSE 89; RESP 20; O2SAT 98
--- NOTE | 2023-07-29 18:05 | ECG_ITS ---
Measurements Intervals [place] Rate: 87 P: 61 SD: 183 QRS: -31 QRSD: 105 T: 42 QT: 389 QTc: 468 Interpretive Statements SINUS RHYTHM PATTERN CONSISTENT WITH PULMONARY DISEASE INFERIOR MYOCARDIAL INFARCTION , OF INDETERMINATE AGE [40+ ms Q WAVE AND/OR ST/T ABNORMALITY IN II/aVF] COMPARED TO ECG 07/13/2023 19:08:20 NO SIGNIFICANT CHANGES Electronically Signed On 07-29-2023 18:52:26 CDT by Joi Lu M.D.
--- NOTE | 2023-07-29 18:26 | ED.ABDPAIN ---
HPI - Abdominal Pain General Chief Complaint: Abdominal Pain Stated Complaint: abdominal pain Time Seen by Provider: 07/29/23 18:02 Source: patient Mode of arrival: ambulatory Limitations: no limitations History of Present Illness HPI narrative: patient is a 57-year-old male with left lower quadrant pain that started today after eating some tuna fish. He said this keeps happening and he has come to the ER multiple times for the same complaint. No major findings on chart review from prior visits. He was supposed to see a GI specialist but has not at this time. Associated nausea. MD elicited complaint: abdominal pain Pertinent past history: constipation and diverticulitis Onset (ago): hour(s) Pain Consistency: constant Location: periumbilical and LLQ Severity: similar to previous episodes Pain scale (0-10): 7 Quality: sharp Radiation: LLQ Migration to: periumbilical Exacerbating factors: eating Relieving factors: nothing Context: confirms history of similar episodes Associated symptoms: nausea Related Data Home Medications Medication Instructions Recorded Confirmed aspirin 325 mg tablet 325 mg PO DAILY 01/04/23 07/21/23 clopidogrel 75 mg tablet 75 mg PO DAILY 07/13/23 07/21/23 Allergies Allergy/AdvReac Type Severity Reaction Status Date / Time prednisone Allergy Swelling Verified 07/29/23 18:21 Review of Systems Review of Systems: All systems reviewed & are unremarkable except as noted in HPI and below Constitutional: Constitutional: Reports no additional constitutional complaints Eyes: Eyes: Reports no additional eye complaints ENT: Reports system reviewed and no additional complaints, except as documented Cardiovascular: Cardiovascular: Reports no additional cardiovascular complaints Respiratory: Respiratory: Reports no additional respiratory complaints Gastrointestinal: Gastrointestinal: Reports no additional gastrointestinal complaints Genitourinary: Genitourinary: Reports no additional male genitourinary complaints Musculoskeletal: Musculoskeletal: Reports no additional musculoskeletal complaints Integumentary/Breasts: Skin/Breast: Reports system reviewed and no additional complaints, except as docu Neurologic: Reports system reviewed and no additional complaints, except as documented Psychiatric: Psychiatric: Reports no additional psychiatric complaints Endocrine: Endocrine: Reports no additional endocrine complaints Hematologic/Lymphatic: Hematologic/Lymphatic: Reports no additional hematologic/lymphatic complaints Allergic/Immunologic: Allergic/Immunologic: Reports no additional allergic/immunologic complaints PMFSH Past Medical History Medical History Abdominal pain Chronic GERD Chronic low back pain Toothache Surgical History Surgical History Spinal cord stimulator dysfunction Family History Family History Other Depression Diabetes mellitus Heart disease Hypertension Social History Social History Smoking status: Current every day smoker Tobacco type: smokeless tobacco Alcohol intake: former Substance use: never Living arrangements: alone Exam Const: General: healthy appearing Nutritional Appearance: well nourished Orientation/consciousness: patient oriented x3 HENMT: Head: normal to inspection Ears: external ears normal Face/Nose/Sinus: Normal external nose present Eyes: Conjunctivae: conjunctivae normal Pupils: Equal, round and reactive pupils present EOM: EOMs intact bilaterally Neck: Neck: normal visual inspection Chest: Chest palpation & inspection: normal inspection of the chest Resp: Effort & Inspection: normal respiratory effort Auscultation: clear to auscultation bilaterally and no crackles Cardio: Rate: regular
[2023-07-29 18:27] LABS: Basophils Absolute Auto 0.03 K/mm3 (0.00-0.10); Basophils Percent Auto 0.4 % (0.0-1.0); Eosinophils Absolute Auto 0.14 K/mm3 (0.02-0.50); Hematocrit 40.8 % (40.0-54.0); Immature Granulocyte Absolute 0.03 K/mm3 (0.00-0.00); Immature Granulocyte Percent A 0.4 % (0.0-0.0); Lymphocytes Absolute Auto 1.28 K/mm3 (1.10-4.50); Lymphocytes Percent Auto 18.3 % (18.0-42.0); Mean Corpuscular HGB Conc 34.3 g/dL (32.0-36.0); Mean Corpuscular Hemoglobin 30.6 pg (27.0-31.0); Mean Corpuscular Volume 89.3 fL (78.0-102.0); Mean Platelet Volume 11.1 fl (8.7-11.0); Monocytes Absolute Auto 0.49 K/mm3 (0.10-0.90); Neutrophils Percent Auto 71.9 % (50.0-70.0); Platelet Count Result 228 K/mm3 (150-420); Red Blood Count 4.57 M/mm3 (4.70-6.10); Red Cell Distribution Width 12.2 % (11.6-14.4)
[2023-07-29 18:31] VITALS: TEMP 37.2
[2023-07-29 18:44] LABS: INR 0.9; Partial Thromboplastin Time 25.1 SEC (23.90-30.70); Prothrombin Time 10.3 Seconds (9.50-12.10)
[2023-07-29 18:45] LABS: Alanine Aminotransferase 24 U/L (16-63); Albumin Level 3.4 g/dL (3.4-5.0); Alkaline Phosphatase 85 U/L (46-116); Anion Gap 9 mmol/L (8-16); Aspartate Amino Transferase 14 U/L (15-37); Bilirubin,Total 0.3 mg/dL (0.00-1.00); Blood Urea Nitrogen 18 mg/dL (7-18); Calcium 9.6 mg/dL (8.5-10.1); Carbon Dioxide 27 mmol/L (21-32); Chloride 106 mmol/L (98-108); Estimated CRCL calculation 94 ml/min; Estimated Glomerular Filt Rate > 60; Glucose 114 mg/dL (70-99); Lipase 36 U/L (16-77); Osmolality Calculated 296 mOsm/kg (285-295); Potassium 3.6 mmol/L (3.5-5.1); Sodium 142 mmol/L (136-145); Total Protein 6.6 g/dL (6.4-8.2); Troponin I 5.1 ng/L (0.00-60.4)
--- NOTE | 2023-07-29 19:07 | PC.NURSE ---
Patient report given to SAMMY Quarles for change of shift.
[2023-07-29 19:39] LABS: Add Urine Microscopic? NO; Appearance Urine Clear (Clear); Bilirubin Urine Negative (Negative); Blood Urine Negative (Negative); Color Urine Light Yellow (Yellow); Glucose Urine UA Negative (Negative); Ketones Urine Negative (Negative); Leukocyte Esterase Ur Negative LEU/UL (Negative); Nitrate Urine Negative (Negative); Protein Urine Negative (Negative); Specific Grav Ur <= 1.005 (1.010-1.020); Urobilinogen Urine 0.2 mg/dL (0.2-1.0)
[2023-07-29 19:41] LABS: Amphetamine Screen Urine Negative (Negative); Barbiturate Screen Urine Negative (Negative); Benzodiazepines Screen Urine Negative (Negative); Cannabinoid Screen Urine Negative (Negative); Cocaine Screen Urine Negative (Negative); Methadone Screen Urine Negative (Negative); Opiate Screen Urine Negative (Negative); Phencyclidine Screen Urine Negative (Negative)
[2023-07-29] MEDS: CIPROFLOXACIN 500 MG TAB PO (19:48)
[2023-07-29] MEDS: metroNIDAZOLE 250 MG TABLET 500 MG PO (19:48)
[2023-07-29 20:05] VITALS: BP 140/72; PULSE 80; RESP 20; TEMP 36.6; O2SAT 98
== END 2023-07-29 20:12 | disposition home or self-care (01) ==
PROVIDERS: Emergency Provider Emergency Medicine; PCP Family Medicine
DX: R10.32 Left lower quadrant pain (principal); K21.9 Gastro-esophageal reflux disease without esophagitis; F17.200 Nicotine dependence, unspecified, uncomplicated; Z79.82 Long term (current) use of aspirin; Z79.899 Other long term (current) drug therapy; Z79.02 Long term (current) use of antithrombotics/antiplatelets
CPT/HCPCS: 36415; 74177; 80053; 80307; 81003; 83690; 84484; 85025; 85610; 85730; 93005; 99284; A9270; Q9967

== ENCOUNTER 2023-08-22 18:36 | Emergency (ER) | payer MEDICARE, SELFPAY ==
[2023-08-22 18:45] VITALS: BP 152/97; PULSE 97; RESP 20; TEMP 36.6; O2SAT 96
--- NOTE | 2023-08-22 18:54 | ED.ABDPAIN ---
HPI - Abdominal Pain General Chief Complaint: Abdominal Pain Stated Complaint: Stomach pain Time Seen by Provider: 08/22/23 18:39 Source: patient and RN notes reviewed Mode of arrival: ambulatory Limitations: no limitations History of Present Illness HPI narrative: patient states he has been having some recurrent abdominal pain left lower quadrant epigastric areas over the last year. He has already seen his chief orthoptist and he is currently on medication. He is scheduled to have a EGD on August 28. He said he was at home and ate chicken pot pie and then it just started burning in flaring up. He comes in [facility] for some treatment to stop the burning for now. He tried a GI cocktail has been prescribed him at home. MD elicited complaint: abdominal pain Pertinent past history: gastritis Onset (ago): year(s) Pain Consistency: intermittent Location: diffuse and epigastric Severity: moderate Quality: aching and burning Radiation: none Migration to: no migration Exacerbating factors: eating Relieving factors: nothing Associated symptoms: nausea Treatments prior to arrival: other (Gi cocktail) Related Data Home Medications Medication Instructions Recorded Confirmed clopidogrel 75 mg tablet 75 mg PO DAILY 07/13/23 08/22/23 Allergies Allergy/AdvReac Type Severity Reaction Status Date / Time prednisone Allergy Swelling Verified 07/29/23 18:21 tramadol Allergy Unknown Verified 08/22/23 18:49 Review of Systems Review of Systems: All systems reviewed & are unremarkable except as noted in HPI and below PMFSH Past Medical History Medical History Abdominal pain Chronic GERD Chronic low back pain Toothache Surgical History Surgical History Spinal cord stimulator dysfunction Family History Family History Other Depression Diabetes mellitus Heart disease Hypertension Social History Social History Smoking status: Current every day smoker Tobacco type: smokeless tobacco Alcohol intake: former Substance use: never Living arrangements: alone Exam Const: General: healthy appearing, no acute distress and alert Nutritional Appearance: well nourished Orientation/consciousness: patient oriented x3 Limitations: no limitations HENMT: Head: normal to inspection Ears: external ears normal Face/Nose/Sinus: Normal external nose present Face and sinus: normal facial exam Mouth: Yes moist mucous membranes Eyes: Conjunctivae: conjunctivae normal Pupils: Equal, round and reactive pupils present EOM: EOMs intact bilaterally Neck: Neck: normal visual inspection Resp: Effort & Inspection: normal respiratory effort Auscultation: clear to auscultation bilaterally Cardio: Rate: regular rate Rhythm: regular rhythm GI: GI Palp: Yes Soft to palpation, Yes Tenderness to palpation present (GI) ( moderate diffusely especially in the epigastric and left lower quadrant) and Yes Guarding due to palpation present (GI) Auscultation: normal bowel sounds Back/Spine/Pelvis: Cervical Spine: cervical ROM normal Thoracic/Lumbar Spine: thoraco-lumbar ROM normal Skin: General skin exam: normal color Rashes: no rashes Neuro: General: patient oriented x3, moves all extremities, no focal motor deficits and CN's II-XI intact bilaterally Speech: normal speech Gait exam (Neuro): Normal gait present Extrem: General: normal to inspection and no clubbing, cyanosis or edema Psych: Mental Status: mental status grossly normal Affect: normal affect Attitude: cooperative Course Course Emergency Course: I discussed with the patient that I reviewed his previous visits back to December of 2021. In the last month he has had several visits and had blood work, EKG, CT scans. I offered him more blood testing repeat CT
[2023-08-22] MEDS: KETOROLAC 30 MG/ML VIAL (*BKC) IM (19:03)
[2023-08-22] MEDS: METOCLOPRAMIDE HCL INJ 10 MG/2 ML VIAL IM (19:03)
[2023-08-22] MEDS: AMOXICILLIN/CLAVULANATE K 875-125 MG TAB 1 TABLET PO (19:18)
== END 2023-08-22 19:21 | disposition home or self-care (01) ==
PROVIDERS: Emergency Provider Emergency Medicine; PCP Family Medicine
DX: K29.70 Gastritis, unspecified, without bleeding (principal); F17.210 Nicotine dependence, cigarettes, uncomplicated
CPT/HCPCS: 96372; 99284; A9270; J1885; J2765

== ENCOUNTER 2023-11-19 21:41 | Emergency (ER) | payer MEDICARE, SELFPAY ==
[2023-11-19 21:41] VITALS: BP 141/89; PULSE 95; RESP 18; TEMP 36.8; O2SAT 98
--- NOTE | 2023-11-19 21:46 | ED.ABDPAIN ---
HPI - Abdominal Pain General Chief Complaint: Abdominal Pain Stated Complaint: stomach pain Source: patient Mode of arrival: ambulatory Limitations: no limitations History of Present Illness HPI narrative: 38-year-old male, smoker with a history of chronic back pain status post morphine pump/ pain stimulator, peripheral vascular disease of the lower extremity status post stents, GERD, recurrent abdominal pain presents to the ER with a 1 day history of -- epigastric pain. Patient has nausea without any vomiting. No diarrhea. Pain is rated as 9/10. No exacerbating or relieving factors. The patient has had multiple CT scans of the abdomen and a recent endoscopy which revealed peptic ulcer disease for which he is currently on omeprazole and sucralfate. no fever or chills MD elicited complaint: abdominal pain Pertinent past history: kidney stones Onset (ago): day(s) ( One day) Pain Consistency: constant Location: epigastric Pain scale (0-10): 9 Quality: aching Radiation: none Migration to: no migration Exacerbating factors: nothing Relieving factors: nothing Associated symptoms: denies other symptoms and nausea Related Data Home Medications Medication Instructions Recorded Confirmed clopidogrel 75 mg tablet 75 mg PO DAILY 07/13/23 08/22/23 Allergies Allergy/AdvReac Type Severity Reaction Status Date / Time prednisone Allergy Swelling Verified 10/15/23 09:32 tramadol Allergy Unknown Verified 10/15/23 09:32 Review of Systems Review of Systems: All systems reviewed & are unremarkable except as noted in HPI and below Constitutional: Constitutional: Reports as per HPI and Reports no additional constitutional complaints Eyes: Eyes: Reports as per HPI and Reports no additional eye complaints ENT: Reports system reviewed and no additional complaints, except as documented and Reports as per HPI Cardiovascular: Cardiovascular: Reports as per HPI and Reports no additional cardiovascular complaints Respiratory: Respiratory: Reports as per HPI and Reports no additional respiratory complaints Gastrointestinal: Gastrointestinal: Reports as per HPI, Reports no additional gastrointestinal complaints and Reports abdominal pain Genitourinary: Genitourinary: Reports no additional male genitourinary complaints Musculoskeletal: Musculoskeletal: Reports no additional musculoskeletal complaints, Reports as per HPI and Reports back pain Integumentary/Breasts: Skin/Breast: Reports system reviewed and no additional complaints, except as docu and Reports as per HPI Neurologic: Reports system reviewed and no additional complaints, except as documented and Reports as per HPI Psychiatric: Psychiatric: Reports no additional psychiatric complaints and Reports as per HPI Endocrine: Endocrine: Reports no additional endocrine complaints and Reports as per HPI Hematologic/Lymphatic: Hematologic/Lymphatic: Reports no additional hematologic/lymphatic complaints and Reports as per HPI Allergic/Immunologic: Allergic/Immunologic: Reports no additional allergic/immunologic complaints and Reports as per HPI [facility] Past Medical History Medical History Abdominal pain Chronic GERD Chronic low back pain Toothache Surgical History Surgical History Spinal cord stimulator dysfunction Family History Family History Other Depression Diabetes mellitus Heart disease Hypertension Social History Social History Smoking status: Current every day smoker Tobacco type: smokeless tobacco Alcohol intake: former Substance use: never Do You Feel Safe in your Home?: Yes Lack of Transportation: No Lack of Food: Never True Current Housing: I Have Housing Concerned About Future Housing: No Difficulty Paying Gas/Mary
--- NOTE | 2023-11-19 22:03 | ECG_ITS ---
Measurements Intervals [place] Rate: 80 P: 63 VT: 195 QRS: 1 QRSD: 102 T: 52 QT: 370 QTc: 429 Interpretive Statements SINUS RHYTHM DELAYED PRECORDIAL R/S TRANSITION CONSIDER INFERIOR INFARCT, AGE INDETERMINATE ABNORMAL ECG COMPARED TO ECG 07/29/2023 18:35:19 NO SIGNIFICANT CHANGES Electronically Signed On 11-20-2023 6:44:48 [employer]BT COLLECTION SPECIALIST by Kurt Clements D.O.
[2023-11-19 22:18] LABS: Basophils Absolute Auto 0.03 K/mm3 (0.00-0.10); Basophils Percent Auto 0.4 % (0.0-1.0); Eosinophils Absolute Auto 0.11 K/mm3 (0.02-0.50); Eosinophils Percent Auto 1.6 % (1.0-6.0); Hematocrit 39.6 % (40.0-54.0); Hemoglobin 13.4 g/dL (14.0-18.0); Immature Granulocyte Absolute 0.03 K/mm3 (0.00-0.00); Immature Granulocyte Percent A 0.4 % (0.0-0.0); Lymphocytes Absolute Auto 1.42 K/mm3 (1.10-4.50); Lymphocytes Percent Auto 20.3 % (18.0-42.0); Mean Corpuscular HGB Conc 33.8 g/dL (32.0-36.0); Mean Corpuscular Hemoglobin 30.3 pg (27.0-31.0); Mean Corpuscular Volume 89.6 fL (78.0-102.0); Mean Platelet Volume 10.6 fl (8.7-11.0); Monocytes Percent Auto 8.6 % (2.0-11.0); Neutrophils Absolute Auto 4.8 K/mm3 (1.7-7.2); Neutrophils Percent Auto 68.7 % (50.0-70.0); Platelet Count Result 206 K/mm3 (150-420); Red Blood Count 4.42 M/mm3 (4.70-6.10); Red Cell Distribution Width 12.4 % (11.6-14.4)
[2023-11-19 22:33] LABS: Partial Thromboplastin Time 24.4 SEC (23.90-30.70); Prothrombin Time 10.5 Seconds (9.50-12.10)
[2023-11-19 22:40] LABS: Alanine Aminotransferase 44 U/L (16-63); Albumin Level 3.4 g/dL (3.4-5.0); Alkaline Phosphatase 91 U/L (46-116); Anion Gap 10 mmol/L (8-16); Aspartate Amino Transferase 22 U/L (15-37); Bilirubin,Total 0.3 mg/dL (0.00-1.00); Blood Urea Nitrogen 13 mg/dL (7-18); Calcium 9.4 mg/dL (8.5-10.1); Carbon Dioxide 27 mmol/L (21-32); Chloride 105 mmol/L (98-108); Estimated CRCL calculation 91 ml/min; Estimated Glomerular Filt Rate > 60; Glucose 108 mg/dL (70-99); Lactic Acid Reflex 1.1 mmol/L (0.4-2.0); Lipase 45 U/L (16-77); Osmolality Calculated 295 mOsm/kg (285-295); Potassium 3.5 mmol/L (3.5-5.1); Sodium 142 mmol/L (136-145); Total Protein 6.7 g/dL (6.4-8.2); Troponin I 4.4 ng/L (0.00-60.4)
--- NOTE | 2023-11-19 23:09 | PC.NURSE ---
urine specimen sent to lab. DR. Jean at bedside for patient update.
[2023-11-19 23:10] LABS: Appearance Urine Clear (Clear); Bilirubin Urine Negative (Negative); Blood Urine Negative (Negative); Color Urine Light Yellow (Yellow); Glucose Urine UA Negative (Negative); Ketones Urine Trace (Negative); Leukocyte Esterase Ur Negative LEU/UL (Negative); Nitrate Urine Negative (Negative); Protein Urine Negative (Negative); Urobilinogen Urine 0.2 mg/dL (0.2-1.0); pH Urine 6.5 (5.0-8.0)
[2023-11-19 23:12] LABS: Add Urine Microscopic? NO
--- NOTE | 2023-11-19 23:17 | PC.NURSE ---
Dr. Jean at bedside for patient update including results and plan for discharge.
[2023-11-19] MEDS: HYDROcodone/acetaminophen (*CRX) 5-325 MG TABLET 1 TAB PO (23:43)
[2023-11-19 23:47] VITALS: BP 134/71; PULSE 72; RESP 18; TEMP 36.9; O2SAT 97
== END 2023-11-19 23:49 | disposition home or self-care (01) ==
PROVIDERS: Emergency Provider Internal Medicine Critical Care Medicine; PCP Family Medicine
DX: R10.10 Upper abdominal pain, unspecified (principal); F17.290 Nicotine dependence, other tobacco product, uncomplicated
CPT/HCPCS: 36415; 80053; 81003; 83605; 83690; 84484; 85025; 85610; 85730; 93005; 99284; A9270

== ENCOUNTER 2023-11-21 20:00 | Emergency (ER) | payer MEDICARE, SELFPAY ==
--- NOTE | ~2023-11-21 | CT_ITS ---
EXAMINATION: CT abdomen pelvis wo con DATE: 11/21/2023 20:26 INDICATION: Upper abdominal pain. TECHNIQUE: Computed tomography (CT) of the abdomen and pelvis was performed without intravenous contr ast. Automated exposure control and iterative reconstruction technique were employed. The dose-length product was 1326.33 mGy-cm. COMPARISON: CT abdomen and pelvis 07/29/2023 FINDINGS: The visualized portions of the lung bases demonstrate minimal atelectasis. No pleural effus ion. The heart size is normal. There are coronary artery calcifications. No pericardial effusion. The liver, gallbladder, spleen, pancreas, and adrenal glands are normal. There are 6 stones in right kid jojo measuring up to 3 mm. There is a 4 mm stone in left kidney. There is calcified atherosclerosis of the aorta and many of the other arteries. There is a stent in right common iliac artery. There are b ilateral inguinal hernias containing fat. There are no dilated loops of bowel. The appendix is normal . There are no pathologically enlarged lymph nodes. There is no free intraperitoneal fluid. There is an intrathecal catheter. Epidural electrodes are noted. There is mild thoracic and lumbar spondylosis . IMPRESSION: 1. Nonobstructing kidney stones. 2. Bilateral inguinal hernias containing fat. Reviewed, dictated and finalized at location E. C COMPOSITION TEACHER
[2023-11-21 20:00] VITALS: BP 151/94; PULSE 98; RESP 18; TEMP 36.7; O2SAT 100
--- NOTE | 2023-11-21 20:12 | ECG_ITS ---
Measurements Intervals [place] Rate: 79 P: 68 AR: 191 QRS: 23 QRSD: 102 T: 47 QT: 364 QTc: 419 Interpretive Statements SINUS RHYTHM DELAYED PRECORDIAL R/S TRANSITION CONSIDER INFERIOR INFARCT, AGE INDETERMINATE ABNORMAL ECG COMPARED TO ECG 11/19/2023 22:22:25 NO SIGNIFICANT CHANGES Electronically Signed On 11-21-2023 21:21:31 BATTERY STARTER by Kurt Clements D.O.
--- NOTE | 2023-11-21 20:15 | ED.ABDPAIN ---
HPI - Abdominal Pain General Chief Complaint: Abdominal Pain Stated Complaint: Abd Pain Time Seen by Provider: 11/21/23 20:08 Source: patient Mode of arrival: ambulatory Limitations: no limitations History of Present Illness HPI narrative: Patient is a 58-year-old male with recurrent abdominal pain. He has been to the emergency room multiple times for the same complaint. He had an upper endoscopy 4 months ago and was started on a PPI of omeprazole and given Carafate. He has been doing well up until the last few days with recurrent abdominal pain. MD elicited complaint: abdominal pain Pertinent past history: none Onset (ago): day(s) (4) Pain Consistency: constant Location: epigastric Severity: moderate Pain scale (0-10): 7 Quality: cramping and sharp Radiation: other (all over abdomen) Migration to: no migration Exacerbating factors: nothing Relieving factors: nothing Context: confirms other (BM x2 today was normal) Associated symptoms: nausea Related Data Home Medications Medication Instructions Recorded Confirmed clopidogrel 75 mg tablet (Plavix) 75 mg PO DAILY 07/13/23 11/21/23 omeprazole 40 mg PO BID 11/19/23 11/21/23 sucralfate 1 g PO QID 11/19/23 11/21/23 Allergies Allergy/AdvReac Type Severity Reaction Status Date / Time prednisone Allergy Swelling Verified 11/21/23 20:07 tramadol Allergy Unknown Verified 11/21/23 20:07 Review of Systems Review of Systems: All systems reviewed & are unremarkable except as noted in HPI and below Constitutional: Constitutional: Reports no additional constitutional complaints Eyes: Eyes: Reports no additional eye complaints ENT: Reports system reviewed and no additional complaints, except as documented Cardiovascular: Cardiovascular: Reports no additional cardiovascular complaints Respiratory: Respiratory: Reports no additional respiratory complaints Gastrointestinal: Gastrointestinal: Reports no additional gastrointestinal complaints Genitourinary: Genitourinary: Reports no additional male genitourinary complaints Musculoskeletal: Musculoskeletal: Reports no additional musculoskeletal complaints Integumentary/Breasts: Skin/Breast: Reports system reviewed and no additional complaints, except as docu Neurologic: Reports system reviewed and no additional complaints, except as documented Psychiatric: Psychiatric: Reports no additional psychiatric complaints Endocrine: Endocrine: Reports no additional endocrine complaints Hematologic/Lymphatic: Hematologic/Lymphatic: Reports no additional hematologic/lymphatic complaints Allergic/Immunologic: Allergic/Immunologic: Reports no additional allergic/immunologic complaints PMFSH Past Medical History Medical History Abdominal pain Chronic GERD Chronic low back pain Toothache Surgical History Surgical History Spinal cord stimulator dysfunction Family History Family History Other Depression Diabetes mellitus Heart disease Hypertension Social History Social History Smoking status: Current every day smoker Tobacco type: smokeless tobacco Alcohol intake: former Substance use: never Do You Feel Safe in your Home?: Yes Lack of Transportation: No Lack of Food: Never True Current Housing: I Have Housing Concerned About Future Housing: No Difficulty Paying Gas/Electric Bills: No Difficulty Paying for Meds: No Currently Unemployed: No Education: Trade/Vocational Certificate Difficulty w/ Childcare or Family Care: No Living arrangements: alone Exam Const: General: healthy appearing Nutritional Appearance: well nourished Orientation/consciousness: patient oriented x3 HENMT: Head: normal to inspection Ears: external ears normal Face/Nose/Sinus: Normal
[2023-11-21 20:31] LABS: Basophils Absolute Auto 0.05 K/mm3 (0.00-0.10); Basophils Percent Auto 0.7 % (0.0-1.0); Eosinophils Absolute Auto 0.12 K/mm3 (0.02-0.50); Eosinophils Percent Auto 1.7 % (1.0-6.0); Hematocrit 41.6 % (40.0-54.0); Hemoglobin 13.9 g/dL (14.0-18.0); Immature Granulocyte Absolute 0.03 K/mm3 (0.00-0.00); Immature Granulocyte Percent A 0.4 % (0.0-0.0); Lymphocytes Absolute Auto 1.45 K/mm3 (1.10-4.50); Mean Corpuscular HGB Conc 33.4 g/dL (32.0-36.0); Mean Corpuscular Hemoglobin 30.2 pg (27.0-31.0); Mean Corpuscular Volume 90.4 fL (78.0-102.0); Mean Platelet Volume 10.7 fl (8.7-11.0); Monocytes Absolute Auto 0.61 K/mm3 (0.10-0.90); Monocytes Percent Auto 8.9 % (2.0-11.0); Neutrophils Absolute Auto 4.6 K/mm3 (1.7-7.2); Neutrophils Percent Auto 67.3 % (50.0-70.0); Platelet Count Result 220 K/mm3 (150-420); Red Cell Distribution Width 12.6 % (11.6-14.4); White Blood Count 6.9 K/mm3 (4.8-10.8)
[2023-11-21 20:45] VITALS: BP 126/76; PULSE 70; RESP 18; O2SAT 99
[2023-11-21 20:51] LABS: Alanine Aminotransferase 37 U/L (16-63); Albumin Level 3.4 g/dL (3.4-5.0); Alkaline Phosphatase 93 U/L (46-116); Anion Gap 8 mmol/L (8-16); Aspartate Amino Transferase 18 U/L (15-37); Bilirubin,Total 0.2 mg/dL (0.00-1.00); Blood Urea Nitrogen 12 mg/dL (7-18); Calcium 9.3 mg/dL (8.5-10.1); Carbon Dioxide 27 mmol/L (21-32); Chloride 107 mmol/L (98-108); Estimated CRCL calculation 109 ml/min; Estimated Glomerular Filt Rate > 60; Glucose 80 mg/dL (70-99); Lipase 50 U/L (16-77); Osmolality Calculated 292 mOsm/kg (285-295); Potassium 3.7 mmol/L (3.5-5.1); Sodium 142 mmol/L (136-145); Total Protein 6.8 g/dL (6.4-8.2); Troponin I 4.6 ng/L (0.00-60.4)
[2023-11-21] MEDS: PANTOPRAZOLE 40 MG TABLET PO (21:10)
[2023-11-21] MEDS: MAG HYDROX/ALUMINUM HYD/SIMETH 30 ML, PHENobarb/HYOSCY/ATROPINE/SCOP 32.4 MG, LIDOCAINE... PO (21:10)
[2023-11-21 21:30] VITALS: BP 134/74; PULSE 65; RESP 18; O2SAT 98
--- NOTE | 2023-11-21 21:42 | PC.NURSE ---
pt reports no relief with medications.
== END 2023-11-21 21:38 | disposition home or self-care (01) ==
PROVIDERS: Emergency Provider Emergency Medicine; PCP Family Medicine
DX: K21.9 Gastro-esophageal reflux disease without esophagitis (principal); K27.9 Peptic ulcer, site unspecified, unspecified as acute or chronic, without hemorrhage or perforation; F17.290 Nicotine dependence, other tobacco product, uncomplicated; Z79.899 Other long term (current) drug therapy
CPT/HCPCS: 36415; 74176; 80053; 83605; 83690; 84484; 85025; 93005; 99284; A9270

== ENCOUNTER 2023-12-30 19:46 | Emergency (ER) | payer MEDICARE, SELFPAY ==
--- NOTE | ~2023-12-30 | CT_ITS ---
EXAMINATION: CT abdomen pelvis w con DATE: 12/30/2023 21:01 INDICATION: fall TECHNIQUE: Computed tomography (CT) of the abdomen and pelvis was performed with 100 mL Omnipaque-350 intravenous contrast. Automated exposure control and iterative reconstruction technique were employe d. The dose-length product was 1398.60 mGy-cm. COMPARISON: 11/21/2023. FINDINGS: No solid organ injury. Bilateral nephrolithiasis. No evidence of bowel or mesenteric injury. No free fluid or free air. No retroperitoneal hematoma. Right common iliac stent. Pelvic contents are atraumatic. MUSCULOSKELETAL: No acute fracture. Left posterior generator pack. Right anterior medication pump. Uncomplicated small fat-containing bilateral inguinal hernias. No fracture or traumatic malalignment of the lower thoracic or lumbar spine. IMPRESSION: No acute traumatic finding in the abdomen or pelvis Reviewed, dictated and finalized at location K. ASSEMBLY WIRER
[2023-12-30 19:50] VITALS: BP 146/73; PULSE 79; RESP 18; TEMP 36.6; O2SAT 99
--- NOTE | 2023-12-30 19:50 | ED.ABDPAIN ---
HPI - Abdominal Pain General Chief Complaint: Abdominal Pain Stated Complaint: Stomach Pain Time Seen by Provider: 12/30/23 19:49 Source: patient Mode of arrival: ambulatory Limitations: no limitations History of Present Illness HPI narrative: patient is a 58-year-old male with abdominal pain chronically. He has been having pains in the abdomen for at least a year now. He has been to the ER multiple times. His workups are always negative. Patient went to Gastroenterology and they said his food does not digest well but otherwise no acute findings. He has not seen a surgeon at this point. MD elicited complaint: abdominal pain Pertinent past history: other ( Chronic abdominal pain) Onset (ago): year(s) (1) Pain Consistency: intermittent Location: diffuse Severity: moderate Pain scale (0-10): 5 Quality: cramping and sharp Radiation: none Migration to: no migration Exacerbating factors: nothing Relieving factors: nothing Associated symptoms: denies other symptoms Treatments prior to arrival: antacids Related Data Home Medications Medication Instructions Recorded Confirmed clopidogrel 75 mg tablet (Plavix) 75 mg PO DAILY 07/13/23 12/30/23 oxycodone-acetaminophen 10 mg-325 1 tablet PO QID PRN Pain 12/30/23 12/30/23 mg tablet Allergies Allergy/AdvReac Type Severity Reaction Status Date / Time prednisone Allergy Swelling Verified 12/30/23 19:57 tramadol Allergy Unknown Verified 12/30/23 19:57 Review of Systems Review of Systems: All systems reviewed & are unremarkable except as noted in HPI and below Constitutional: Constitutional: Reports no additional constitutional complaints Eyes: Eyes: Reports no additional eye complaints ENT: Reports system reviewed and no additional complaints, except as documented Cardiovascular: Cardiovascular: Reports no additional cardiovascular complaints Respiratory: Respiratory: Reports no additional respiratory complaints Gastrointestinal: Gastrointestinal: Reports no additional gastrointestinal complaints Genitourinary: Genitourinary: Reports no additional male genitourinary complaints Musculoskeletal: Musculoskeletal: Reports no additional musculoskeletal complaints Integumentary/Breasts: Skin/Breast: Reports system reviewed and no additional complaints, except as docu Neurologic: Reports system reviewed and no additional complaints, except as documented Psychiatric: Psychiatric: Reports no additional psychiatric complaints Endocrine: Endocrine: Reports no additional endocrine complaints Hematologic/Lymphatic: Hematologic/Lymphatic: Reports no additional hematologic/lymphatic complaints Allergic/Immunologic: Allergic/Immunologic: Reports no additional allergic/immunologic complaints [facility] Past Medical History Medical History Abdominal pain Chronic GERD Chronic low back pain Toothache Surgical History Surgical History Spinal cord stimulator dysfunction Family History Family History Other Depression Diabetes mellitus Heart disease Hypertension Social History Social History Smoking status: Current every day smoker Tobacco type: smokeless tobacco Alcohol intake: former Substance use: never Do You Feel Safe in your Home?: Yes Lack of Transportation: No Lack of Food: Never True Current Housing: I Have Housing Concerned About Future Housing: No Difficulty Paying Gas/Electric Bills: No Difficulty Paying for Meds: No Currently Unemployed: No Education: Trade/Vocational Certificate Difficulty w/ Childcare or Family Care: No Living arrangements: alone Exam Const: General: healthy appearing Nutritional Appearance: well nourished Orientation/consciousness: patient oriented x3 HENMT: Head: normal to
--- NOTE | 2023-12-30 20:02 | ECG_ITS ---
Measurements Intervals Marquez Rate: 70 P: 55 UT: 191 QRS: -5 QRSD: 101 T: 29 QT: 364 QTc: 395 Interpretive Statements SINUS RHYTHM BORDERLINE R WAVE PROGRESSION, ANTERIOR LEADS INFERIOR INFARCT, AGE INDETERMINATE ABNORMAL ECG COMPARED TO ECG 11/21/2023 20:33:47 NO SIGNIFICANT CHANGES Electronically Signed On 12-31-2023 6:40:37 CLAIMS AUDITOR by Kurt Clements D.O.
[2023-12-30 20:12] LABS: Basophils Absolute Auto 0.05 K/mm3 (0.00-0.10); Basophils Percent Auto 0.9 % (0.0-1.0); Eosinophils Absolute Auto 0.14 K/mm3 (0.02-0.50); Eosinophils Percent Auto 2.5 % (1.0-6.0); Hematocrit 40.3 % (40.0-54.0); Hemoglobin 13.3 g/dL (14.0-18.0); Immature Granulocyte Absolute 0.03 K/mm3 (0.00-0.00); Immature Granulocyte Percent A 0.5 % (0.0-0.0); Lymphocytes Percent Auto 27.2 % (18.0-42.0); Mean Corpuscular Hemoglobin 30.3 pg (27.0-31.0); Mean Corpuscular Volume 91.8 fL (78.0-102.0); Mean Platelet Volume 10.7 fl (8.7-11.0); Monocytes Absolute Auto 0.47 K/mm3 (0.10-0.90); Monocytes Percent Auto 8.5 % (2.0-11.0); Neutrophils Absolute Auto 3.3 K/mm3 (1.7-7.2); Neutrophils Percent Auto 60.4 % (50.0-70.0); Platelet Count Result 209 K/mm3 (150-420); Red Blood Count 4.39 M/mm3 (4.70-6.10); Red Cell Distribution Width 12.8 % (11.6-14.4); White Blood Count 5.5 K/mm3 (4.8-10.8)
[2023-12-30 20:15] LABS: Appearance Urine Clear (Clear); Bilirubin Urine Negative (Negative); Blood Urine Negative (Negative); Color Urine Light Yellow (Yellow); Glucose Urine UA Negative (Negative); Ketones Urine Negative (Negative); Leukocyte Esterase Ur Negative LEU/UL (Negative); Nitrate Urine Negative (Negative); Protein Urine Negative (Negative); Specific Grav Ur 1.025 (1.010-1.020); pH Urine 6.5 (5.0-8.0)
[2023-12-30 20:16] LABS: Add Urine Microscopic? NO
[2023-12-30 20:34] LABS: Alanine Aminotransferase 39 U/L (16-63); Albumin Level 3.4 g/dL (3.4-5.0); Alkaline Phosphatase 83 U/L (46-116); Anion Gap 8 mmol/L (8-16); Aspartate Amino Transferase 23 U/L (15-37); Bilirubin,Total 0.2 mg/dL (0.00-1.00); Blood Urea Nitrogen 11 mg/dL (7-18); Calcium 9.6 mg/dL (8.5-10.1); Carbon Dioxide 25 mmol/L (21-32); Chloride 107 mmol/L (98-108); Estimated CRCL calculation 120 ml/min; Estimated Glomerular Filt Rate > 60; Glucose 109 mg/dL (70-99); Osmolality Calculated 290 mOsm/kg (285-295); Potassium 4.3 mmol/L (3.5-5.1); Sodium 140 mmol/L (136-145); Total Protein 6.3 g/dL (6.4-8.2)
[2023-12-30 21:42] VITALS: BP 154/68; PULSE 80; RESP 16; TEMP 37.1; O2SAT 98
== END 2023-12-30 21:46 | disposition home or self-care (01) ==
PROVIDERS: Emergency Provider Emergency Medicine; PCP Family Medicine
DX: R10.9 Unspecified abdominal pain (principal); F17.210 Nicotine dependence, cigarettes, uncomplicated; Z79.891 Long term (current) use of opiate analgesic
CPT/HCPCS: 36415; 74177; 80053; 81003; 83605; 84484; 85025; 93005; 99284; Q9967

== ENCOUNTER 2024-12-20 22:46 | Emergency (ER) | payer MEDICARE, SELFPAY ==
[2024-12-20 22:45] VITALS: BP 165/95; PULSE 79; RESP 18; TEMP 37.1; O2SAT 98
--- OUTSIDE RECORDS SUMMARY | 2024-12-20 22:48 | XMS_ITS | Encounter Summary ---
Author Organization [facility] Address [address] [place] [address] Phone Care Team Providers Care Instant Print Operator Name Role Phone Felipe Sprague MD Primary Care Provider [phone] Reason for Referral * Radiology Services (Routine) - Closed Specialty Diagnoses / Procedures Referred By Bonnie t Referred To Contact Radiology Diagnoses Low back pain, unspecified back pain laterality, unspecified chronicity, unspecified whether sciatica present Other chronic pain Procedures XR MYELO 2+ REGIONS [place] [address] [place] [address] Phone: tel: fax: Referral ID Status Reason Start Date Expiration Date Visits Re quested Visits Authorized [id number] Closed 07/17/2023 1 1 Encounter Details Date Type Department Care Team (Latest Contact Info) Description 07/17/2023 Transcribe Orders [facility] Diagnostic Radiology [address] [place] [address] [place] [address] [place] [id number] Low back pain, unspecified back pain laterality, unspecified chronicity, unspecified whether sciatica present (Primary Dx); Other chronic pain; Other mechanical complication of electrode lead of implanted electronic neurostimulator of spinal cord, initial encounter (HCC) Social History Tobacco Use Types Packs/Day Years Used Date Smoking Tobacco: Every Day Cigarettes Smokeless Tobacco: Current Alcohol Use Standard Drinks/Week Comments Yes 0 (1 standard drink = 0.6 oz pur e alcohol) Sex and Gender Information Value Date Recorded Sex Assigned at Not on file Legal Sex Male 10:52 PM CDT Gender Identity Not on file Sexual Orientation Not on file documented as of this encounter Plan of Treatment Not on file documented as of this encounter Results * CT THORACIC AND LUMBAR SPINE W/ CONTRAST (08/15/2023 10:08 AM CDT) Anatomical Region Laterality Modality Spine N/A Computed Tomogra phy 08/18/2023 8:08 AM CDT Impressions 08/18/2023 8:10 AM CDT IMPRESSION: 1. Ejxt-lu-hgjwghlk thoracolumbar degenerative changes as described. There is no high-grade spinal canal stenosis. 2. Neural foraminal stenosis and additional findings as above. Narrative 08/18/2023 8:10 AM CDT EXAM DESCRIPTION: CT THORACIC AND LUMBAR SPINE W/ CONTRAST REASON FOR STUDY: s/p myelogram, chronic back pain. complication of neurostimulator TECHNIQUE: Axial images acquired through the thoracic and lumbar spine with intrathecal contrast. Reconstructed coronal and sagittal MPR images reviewed. Images stored on PACS. Please refer to the separate report of the fluoroscopy guided lumbar puncture and contrast administration report dated 08/15/2023 for the procedural details. Automated exposure control was used as a dose optimization technique for this examination. CONTRAST TYPE/DOSE: 20mL of IOPAMIDOL 41 % IJ SOLN injected via Other COMPARISON: Lumbar spine CT dated 09/13/2022 and 09/18/2020. Thoracic spine CT dated 09/18/2020 and 06/16/2017. Thoracic spine MRI dated 05/15/2017. FINDINGS: THORACIC SPINE: ALIGNMENT: Anterior-posterior alignment is maintained. VERTEBRAE: Chronic T8 superior endplate irregularity as seen previously. Ejnv-ms-hjlycpcy endplate degenerative changes and marginal spur formation. The T11 vertebral body sclerotic focus as seen on the earliest available CT dated 06/16/2017. DISC HEIGHT: Multilevel intervertebral disc height loss. HARDWARE: Spinal stimulator leads enter the left dorsal lateral bony spinal canal at T12-L1, course cranially in the posterior bony spinal canal with distal tips projecting over the level of T6-T7, T7-T8 and T8-T9. THECAL SAC: Positive contrast is present in the thecal sac. THORACIC DISCS: T1-T2 and T2-T3: Minor disc bulges. No significant osseous spinal canal or neural foraminal narrowing. T3-T4: Disc bulge/marginal spur formation eccentric to the right flattens the right ventral thecal sac. Dorsal CSF cleft is maintained. Bilateral facet arthropathy with right neural foraminal narrowing. T4-T5: Disc bulge/marginal spur formation flattens the right ventral thecal sac. No significant spinal canal stenosis. Bilateral facet arthropathy with mild right neural foraminal narrowing. T5-T6: Disc bulge with marginal spur formation flattens the right ventral thecal sac. No significant spinal canal stenosis. Bilateral facet arthropathy with mild left and no significant right neural foraminal narrowing. T6-T7: Disc bulge/marginal spur formation flattens the right ventral thecal sac. Dorsal CSF cleft is maintained. No significant osseous neural foraminal narrowing. At the remainder of the thoracic levels no significant disc bulge, osseous spinal canal or neural foraminal narrowing. SOFT TISSUES: Debris in the imaged thoracic esophagus would be compatible with thickened secretions. If there is concern for a true nodule then recommend short interval repeat chest CT. There is bilateral bronchial wall thickening/bronchiectasis. No focal pneumonic consolidation in the imaged lung parenchyma. Partially imaged kidneys with multiple nonobstructing bilateral renal calculi. There is calcified plaque in the imaged thoracic and abdominal aorta. LOWER CERVICAL: Incompletely imaged. No high-grade osseous spinal canal stenosis. UPPER LUMBAR: Incompletely imaged. Better assessed on the concurrently obtained lumbar spine CT myelogram. LUMBAR SPINE: SEGMENTATION: 5 qrn-szh-reugyoo lumbar type vertebral bodies. ALIGNMENT: Minor retrolisthesis of L1 on L2 and L4 on L5. VERTEBRAE: Multilevel mild endplate degenerative changes with marginal spur formation. DISC HEIGHT: Multilevel intervertebral disc height loss. HARDWARE: Spinal stimulator leads entering the left dorsal lateral bony spinal canal at T12-L1. Additional leads/catheter in the right posterior paraspinal soft tissues entering the bony spinal canal at T3-T4. Distally extends cranially and appears to be within the thecal sac. Request correlation with the patient's surgical history. THECAL SAC: Positive contrast is seen in the thecal sac. Conus medullaris terminates at L1. No significant clumping of the cauda equina nerve roots. INDIVIDUAL DISCS: L1-L2: Disc bulge with facet arthropathy. No significant osseous spinal canal or neural foraminal narrowing. L2-L3: Minor disc bulge with marginal spur formation eccentric to the right neural foramen. Thickened ligamentum flavum and facet arthropathy. Flattening of the ventral thecal sac. Mild inferior right and no significant left osseous neural foraminal narrowing. L3-L4: Disc bulge with marginal spur formation eccentric to the left neural foramen. Thickened ligamentum flavum with facet arthropathy. Flattening of the ventral thecal sac. Mild inferior bilateral neural foraminal narrowing. L4-L5: Disc bulge with marginal spur formation. Thickened ligamentum flavum with facet arthropathy. Flattening of the ventral thecal sac. Lateral recess effacement on both sides. Mild right and oucj-gm-kbbfyhbn inferior left osseous neural foraminal narrowing. L5-S1: Disc bulge with marginal spur formation eccentric to the right neural foramen. There is eccentric effacement of the left ventral thecal sac abutting the descending left S1 nerve root and could be a disc protrusion but not well assessed by myelographic technique. Mild left ventral spinal canal stenosis. There is bilateral facet arthropathy. Kpoh-hd-vbljorhh right and mild left osseous neural foraminal narrowing. SOFT TISSUES: Partially imaged calcified plaque in the abdominal aorta and major branch vessels. There is a right iliac stent graft. Bilateral renal nonobstructing calculi. Additional high density in the bilateral renal collecting systems could be excretion of contrast. Correlate with urinalysis if there is concern for blood products. THIS IS AN ELECTRONICALLY VERIFIED FINAL REPORT 08/18/2023 8:08 AM - Electronically signed by Chuck Espinal D.O. AP: AP Report ID: [id number] Reading Location: [id number] Procedure Note Chuck Espinal DO - 08/18/2023 EXAM DESCRIPTION: CT THORACIC AND LUMBAR SPINE W/ CONTRAST REASON FOR STUDY: s/p myelogram, chronic back pain. complication of neurostimulator TECHNIQUE: Axial images acquired through the thoracic and lumbar spine with intrathecal contrast. Reconstructed coronal and sagittal MPR images reviewed. Images stored on PACS. Please refer to the separate report of the fluoroscopy guided lumbar puncture and contrast administration report dated 08/15/2023 for the procedural details. Automated exposure control was used as a dose optimization technique for this examination. CONTRAST TYPE/DOSE: 20mL of IOPAMIDOL 41 % IJ SOLN injected via Other COMPARISON: Lumbar spine CT dated 09/13/2022 and 09/18/2020. Thoracic spine CT dated 09/18/2020 and 06/16/2017. Thoracic spine MRI dated 05/15/2017. FINDINGS: THORACIC SPINE: ALIGNMENT: Anterior-posterior alignment is maintained. VERTEBRAE: Chronic T8 superior endplate irregularity as seen previously. Plcs-fw-quxgykko endplate degenerative changes and marginal spur formation. The T11 vertebral body sclerotic focus as seen on the earliest available CT dated 06/16/2017. DISC HEIGHT: Multilevel intervertebral disc height loss. HARDWARE: Spinal stimulator leads enter the left dorsal lateral bony spinal canal at T12-L1, course cranially in the posterior bony spinal canal with distal tips projecting over the level of T6-T7, T7-T8 and T8-T9. THECAL SAC: Positive contrast is present in the thecal sac. THORACIC DISCS: T1-T2 and T2-T3: Minor disc bulges. No significant osseous spinal canal or neural foraminal narrowing. T3-T4: Disc bulge/marginal spur formation eccentric to the right flattens the right ventral thecal sac. Dorsal CSF cleft is maintained. Bilateral facet arthropathy with right neural foraminal narrowing. T4-T5: Disc bulge/marginal spur formation flattens the right ventral thecal sac. No significant spinal canal stenosis. Bilateral facet arthropathy with mild right neural foraminal narrowing. T5-T6: Disc bulge with marginal spur formation flattens the right ventral thecal sac. No significant spinal canal stenosis. Bilateral facet arthropathy with mild left and no significant right neural foraminal narrowing. T6-T7: Disc bulge/marginal spur formation flattens the right ventral thecal sac. Dorsal CSF cleft is maintained. No significant osseous neural foraminal narrowing. At the remainder of the thoracic levels no significant disc bulge, osseous spinal canal or neural foraminal narrowing. SOFT TISSUES: Debris in the imaged thoracic esophagus would be compatible with thickened secretions. If there is concern for a true nodule then recommend short interval repeat chest CT. There is bilateral bronchial wall thickening/bronchiectasis. No focal pneumonic consolidation in the imaged lung parenchyma. Partially imaged kidneys with multiple nonobstructing bilateral renal calculi. There is calcified plaque in the imaged thoracic and abdominal aorta. LOWER CERVICAL: Incompletely imaged. No high-grade osseous spinal canal stenosis. UPPER LUMBAR: Incompletely imaged. Better assessed on the concurrently obtained lumbar spine CT myelogram. LUMBAR SPINE: SEGMENTATION: 5 ymy-xme-xzzlwpx lumbar type vertebral bodies. ALIGNMENT: Minor retrolisthesis of L1 on L2 and L4 on L5. VERTEBRAE: Multilevel mild endplate degenerative changes with marginal spur formation. DISC HEIGHT: Multilevel intervertebral disc height loss. HARDWARE: Spinal stimulator leads entering the left dorsal lateral bony spinal canal at T12-L1. Additional leads/catheter in the right posterior paraspinal soft tissues entering the bony spinal canal at T3-T4. Distally extends cranially and appears to be within the thecal sac. Request correlation with the patient's surgical history. THECAL SAC: Positive contrast is seen in the thecal sac. Conus medullaris terminates at L1. No significant clumping of the cauda equina nerve roots. INDIVIDUAL DISCS: L1-L2: Disc bulge with facet arthropathy. No significant osseous spinal canal or neural foraminal narrowing. L2-L3: Minor disc bulge with marginal spur formation eccentric to the right neural foramen. Thickened ligamentum flavum and facet arthropathy. Flattening of the ventral thecal sac. Mild inferior right and no significant left osseous neural foraminal narrowing. L3-L4: Disc bulge with marginal spur formation eccentric to the left neural foramen. Thickened ligamentum flavum with facet arthropathy. Flattening of the ventral thecal sac. Mild inferior bilateral neural foraminal narrowing. L4-L5: Disc bulge with marginal spur formation. Thickened ligamentum flavum with facet arthropathy. Flattening of the ventral thecal sac. Lateral recess effacement on both sides. Mild right and wtkp-ys-oicdutcu inferior left osseous neural foraminal narrowing. L5-S1: Disc bulge with marginal spur formation eccentric to the right neural foramen. There is eccentric effacement of the left ventral thecal sac abutting the descending left S1 nerve root and could be a disc protrusion but not well assessed by myelographic technique. Mild left ventral spinal canal stenosis. There is bilateral facet arthropathy. Pcmt-ka-wnmulfbj right and mild left osseous neural foraminal narrowing. SOFT TISSUES: Partially imaged calcified plaque in the abdominal aorta and major branch vessels. There is a right iliac stent graft. Bilateral renal nonobstructing calculi. Additional high density in the bilateral renal collecting systems could be excretion of contrast. Correlate with urinalysis if there is concern for blood products. THIS IS AN ELECTRONICALLY VERIFIED FINAL REPORT 08/18/2023 8:08 AM - Electronically signed by Chuck Espinal D.O. AP: AP Report ID: [id number] Reading Location: [place] [address] IMPRESSION: 1. Unzq-bc-slfkabnl thoracolumbar degenerative changes as described. There is no high-grade spinal canal stenosis. 2. Neural foraminal stenosis and additional findings as above. us Johanna Ragland MD IMG CT ORDERABLES Final Resul t * XR MYELO 2+ REGIONS 1 PHY (08/15/2023 9:21 AM CDT) Anatomical Region Laterality Modality Spine N/A Radio Fluoroscop y 08/15/2023 2:39 PM CDT Impressions 08/15/2023 2:42 PM CDT IMPRESSION: Thoracolumbar myelogram performed for CT Myelography. Please refer to the report of the CT Myelogram for detailed diagnostic evaluation. Narrative 08/15/2023 2:42 PM CDT EXAM DESCRIPTION: XR MYELO 2+ REGIONS 1 PHY REASON FOR STUDY: Right sided low back pain with intermittent numbness and tingling into right lef to calf x 1 year after injury at work- Pain pump L1L5 and spinal stimulator (shut off) COMPARISON: None RADIATION DOSE: Dose: Reference air kerma. 28.29 mGy TECHNIQUE: Fluoroscopic guided thoracic and lumbar spine myelogram. PROCEDURE: After fluoroscopic localization, sterile skin prep was performed with Betadine . Local Anesthesia performed with 1% Lidocaine. Using fluoroscopic guidance, a 20 -gauge spinal needle was advanced to the thecal sac via paracentral approach at the L3-4 level. Position confirmed with return of CSF. Needle placement was documented with fluoroscopic images. At this point, approximately 12 mL cc's of Isovue M 200 myelographic contrast was injected under fluoroscopic monitoring without complication. Needle was removed and a bandage applied. No post procedural neurologic changes or complications. Patient sent to CT scan for additional imaging. Discharge instructions were provided. Estimated blood loss: <5 mL FINDINGS: Contrast is present in the thecal sac. THIS IS AN ELECTRONICALLY VERIFIED FINAL REPORT 08/15/2023 2:39 PM - Electronically signed by Noé Conn M.D. AG: AMPARO Report ID: [id number] Reading Location: [id number] Procedure Note Noé Conn MD - 08/15/2023 EXAM DESCRIPTION: XR MYELO 2+ REGIONS 1 PHY REASON FOR STUDY: Right sided low back pain with intermittent numbness and tingling into right lef to calf x 1 year after injury at work- Pain pump L1L5 and spinal stimulator (shut off) COMPARISON: None RADIATION DOSE: Dose: Reference air kerma. 28.29 mGy TECHNIQUE: Fluoroscopic guided thoracic and lumbar spine myelogram. PROCEDURE: After fluoroscopic localization, sterile skin prep was performed with Betadine . Local Anesthesia performed with 1% Lidocaine. Using fluoroscopic guidance, a 20 -gauge spinal needle was advanced to the thecal sac via paracentral approach at the L3-4 level. Position confirmed with return of CSF. Needle placement was documented with fluoroscopic images. At this point, approximately 12 mL cc's of Isovue M 200 myelographic contrast was injected under fluoroscopic monitoring without complication. Needle was removed and a bandage applied. No post procedural neurologic changes or complications. Patient sent to CT scan for additional imaging. Discharge instructions were provided. Estimated blood loss: <5 mL FINDINGS: Contrast is present in the thecal sac. THIS IS AN ELECTRONICALLY VERIFIED FINAL REPORT 08/15/2023 2:39 PM - Electronically signed by Noé Conn M.D. AG: AMPARO Report ID: [id number] Reading Location: [id number] IMPRESSION: Thoracolumbar myelogram performed for CT Myelography. Please refer to the report of the CT Myelogram for detailed diagnostic evaluation. Johanna Ragland MD IMG FLUOROSCOPY ORDERABLES Fi nal Result documented in this encounter Visit Diagnoses Diagnosis Low back pain, unspecified back pain laterality, unspecified chronicity, unspecified whether sciatica present- Primary Other chronic pain Other mechanical complication of electrode lead of implanted electronic neurostimulator of spinal cord, initial encounter (HCC) Low back pain, unspecified back pain laterality, unspecified chronicity, unspecified whether sciatica present- Primary Other chronic pain Chronic pain syndrome Other mechanical complication of electrode lead of implanted electronic neurostimulator of spinal cord, initial encounter (HCC) documented in this encounter Care Teams Instant Print Operator Relationship Specialty Start Date End Date Felipe Sprague MD [address] [place] [address] PCP - General Family Medicine 06/12/23 documented as of this encounter
--- OUTSIDE RECORDS SUMMARY | 2024-12-20 22:48 | XMS_ITS | Encounter Summary ---
Author Organization [facility] Address [address] [place] [address] Phone Care Team Providers Care Distance Learning Administrator Name Role Phone Felipe Sprague MD Primary Care Provider [phone] Encounter Details Date Type Department Care Team (Late st Contact Info) Description 07/17/2023 Transcribe Orders [facility] Diagnostic Radiology 1 [place] [address] Jorge Zee MD [address] [place] [address] Low back pain, unspecified back pain laterality, unspecified chronicity, unspecified whether sciatica present (Primary Dx); Other intermediate (current) drug therapy; Pre-operative laboratory examination; Encounter for therapeutic drug monitoring Social History Tobacco Use Types Packs/Day Years [...] documented as of this encounter Results * APTT (PTT) (08/12/2023 11:32 AM CDT) PTT 27 24 - 36 sec 08/12/2023 12:41 PM CDT [facility] Blood Venipuncture / Unknown 08/12/2023 11:32 AM CDT 08/12/2023 12:18 PM CDT Narrative [facility] - 08/12/2023 12:41 PM CDT Therapeutic range for unfractionated heparin at 0.3-0.7 U/mL is an aPTT value in the range of 71-100 seconds. Critical value for the PTT test is >= 122 seconds. Jorge Zee MD HEMATOLOGY ORDERABLES Fin al Result Performing Organization Address [facility] Co de Phone Number [facility] [address] [place] [address] * PROTIME (PT) (PROTHROMBIN TIME) (08/12/2023 11:32 AM CDT) [facility] PROTIME-PATIENT 13.4 11.6 - 14.8 sec 08/12/2023 12:41 PM CDT [facility] INR 1.0 0.9 - 1.2 08/12/2023 12:41 PM CDT [facility] Comment: Therapeutic Ranges INR = 2.0-3.0: Venous thromb, atrial fib, pul embolism, tissue heart valve, ami. INR = 2.5-3.5: Mechanical heart valve Critical value for INR is >/= 4.5 Blood Venipuncture / Unknown 08/12/2023 11:32 AM CDT 08/12/2023 12:18 PM CDT Jorge eZe MD HEMATOLOGY ORDERABLES Fin al Result Performing Organization Address [facility] Co de Phone Number [facility] [address] [place] [address] * BASIC METABOLIC PANEL W/ CALCIUM TOTAL (08/12/2023 11:32 AM CDT) [facility] SODIUM 136 136 - 145 mmol/L 08/12/2023 12:56 PM CDT [facility] POTASSIUM 4.2 3.5 - 5.1 mmol/L 08/12/2023 12:56 PM CDT [facility] CHLORIDE 102 98 - 107 mmol/L 08/12/2023 12:56 PM CDT [facility] CO2, VENOUS 26 22 - 30 mmol/L 08/12/2023 12:56 PM CDT [facility] ANION GAP 12.2 <18.0 mmol/L 08/12/2023 12:56 PM CDT [facility] GLUCOSE 89 70 - 99 mg/dL 08/12/2023 12:56 PM CDT [facility] BUN 13 8 - 26 mg/dL 08/12/2023 12:56 PM CDT [facility] CREATININE, BLOOD 0.85 0.70 - 1.30 mg/dL 08/12/2023 12:56 PM CDT [facility] BUN/CREATININE RATIO 15 12 - 20 ratio 08/12/2023 12:56 PM CDT [facility] CALCIUM 10.1 8.7 - 10.5 mg/dL 08/12/2023 12:56 PM CDT [facility] IS THE PATIENT REQUIRED TO BE FASTING? No 08/12/2023 12:56 PM CDT [facility] GFR, ESTIMATED >60 >=60 08/12/2023 12:56 PM CDT [facility] Comment: Creatinine Clearance is the preferred criteria for selecting drug dose adjustments in renally impaired patients. The GFR is provided as additional pertinent clinical information. GFR is reported in mL/min/1.73 sq m. Calculation based on the Chronic Kidney Disease Epidemiology Collaboration (CKD- EPI) equation refit without adjustment for race. GFR, EST. >60 >=60 023 12:56 PM CDT [facility] GFR, EST. NONAFRICAN >60 >=60 08/12/2023 12:56 PM CDT [facility] Blood Venipuncture / Unknown 08/12/2023 11:32 AM CDT 08/12/2023 12:18 PM CDT Jorge Zee MD CHEMISTRY ORDERABLES Yael l Result [facility] [address] [place] [address] documented in this encounter Visit Diagnoses Diagnosis Low back pain, unspecified back pain laterality, unspecified chronicity, unspecified whether sciatica present- Primary Other intermediate (current) drug therapy Pre-operative laboratory examination Pre-procedural laboratory examination Encounter for therapeutic drug monitoring documented in this encounter Care Teams Distance Learning Administrator Relationship Specialty Start Date End Date Felipe Sprague MD [address] [address] PCP - General Family Medicine 06/12/23 documented as of this encounter
--- OUTSIDE RECORDS SUMMARY | 2024-12-20 22:48 | XMS_ITS | Clinical Summary ---
Author Organization [facility] Address [address] [place] [address] Phone Care Team Providers Care Clearing Hand Name Role Phone Felipe Sprague MD Primary Care Provider [phone] Allergies Active Allergy Reactions Criticality Noted Date Comments Prednisone Other (see Comments) 10/14/2015 Fluid around the heart Medications oxyCODONE-Aceta minophen (PERCOCET) 10-325 MG Tablet Take 1 Tab by mouth every 8 hours as needed. Active docusate sodium (COLACE) 100 MG Capsule Take 1 Cap by mouth daily. 90 Cap 1 7 Active Additional Information Patient not taking.Reported on 08/15/2023 HYDROmorphone HCl (DILAUDID PO) Take by mouth. Activ e dicyclomine (BENTYL) 20 MG Tablet Take 1 Tablet by mouth every 6 hours. 30 Tablet 2 Active naproxen (NAPROSYN) 500 MG Tablet Take 1 Tablet by mouth 2 times daily (with meals). 30 Tablet 2 Active cyclobenzaprine (FLEXERIL) 10 MG Tablet Take 1 Tablet by mouth 3 times daily as needed for Muscle spasms. 20 Tablet 2 Active Additional Information Patient not taking.Reported on 08/15/2023 tamsulosin (FLOMAX) 0.4 MG Capsule Take 1 Capsule by mouth daily. 90 Capsule 2 Active Additional Information Patient not taking.Reported on 08/15/2023 ondansetron (ZOFRAN) 4 MG Tablet Take 1 Tablet by mouth every 12 hours as needed for Nausea - 1st line. 10 Tablet 3 Active famotidine (PEPCID) 20 MG Tablet Take 1 Tablet by mouth every evening. 14 Tablet Active Active Problems Problem Noted Date Diagnosed Date Chronic pain syndrome 06/20/2017 Somatic symptom disorder, pe rsistent, severe, with predominant pain 06/20/2017 Left foot drop 11/06/2016 Lumbar spondylosis 11/06/2016 Family History Medical History Relation Name Comments No Known Problems Brother Cancer Father No Known Problems Maternal Grandfather No Known Problems Maternal Grandmother No Known Problems Mother No Known Problems Paternal Grandfather No Known Problems Paternal Grandmother No Known Problems Sister Relation Name Status Comments Brother Alive Father Maternal Grandfather Maternal Grandmother Mother Alive Paternal Grandfather Paternal Grandmother Sister Alive Social History Tobacco Use Types Packs/Day Years Used Date Smoking Tobacco: Every Day Cigarettes Smokeless Tobacco: Current Tobacco Cessation:Counseling Given: No Alcohol Use Standard Drinks/Week Comments Yes 0 (1 standard drink = 0.6 oz pur e alcohol) Sex and Gender Information Value Date Recorded Sex Assigned at Not on file Legal Sex Male 10:52 PM CDT Gender Identity Not on file Sexual Orientation Not on file Last Filed Vital Signs Vital Sign Reading Time Taken Comments Blood Pressure 129/67 08/15/2023 11:40 AM CDT Pulse 74 08/15/2023 11:40 AM CDT Temperature 36.3 C (97.3 F) 08/15/2023 11:40 AM CDT Respiratory Rate 16 08/15/2023 11:40 AM CDT Oxygen Saturation 97% 08/15/2023 11:40 AM CDT Inhaled Oxygen Concentration - - Weight 104.3 kg (230 lb) 08/15/2023 7:43 AM CDT Height 182.9 cm (6') 08/15/2023 7:43 AM CDT Body Mass Index 31.19 08/15/2023 7:43 AM CDT Plan of Treatment Health Maintenance Due Date Last Done Comments Hepatitis C Virus (HCV) Screening 1967 TdaP Immunization 1967 Pneumococcal Immunization Combined (1 of 2 - PCV) 1973 Hepatitis B Immunization (1 of 3 - 19+ 3-dose series) 1986 Pneumococcal Immunization (5 0+ years) (1 of 2 - PCV) 1986 Cologuard 2017 Zoster Immunization (1 of 2) 2017 PSA Discussion 2022 Immunochemical Fecal Occult Blood 01/10/2023 01/10/2022 Influenza Immunization (#1) 2024 SARS-COV-2 Immunization ( season) 2024 Colonoscopy 12/11/2031 12/11/2021, 12/11/2021 Colorectal Cancer Screening 12/11/2031 Respiratory Syncytial Virus (RSV) Immunization (Adult) (1 - 1-dose 75+ series) 2042 12/11/2021, 12/11/2021 Meningococcal Immunization (ACWY) Aged Out No longer eligible b ased on patient's age to complete this topic Rotavirus Immunization Aged Out No lo nger eligible based on patient's age to complete this topic Insurance MEDICARE [place]ICAID [place] Care Teams Clearing Hand Relationship Specialty Start Date End Date Felipe Sprague MD [address] [place] [address] PCP - General Family Medicine 06/12/23
--- OUTSIDE RECORDS SUMMARY | 2024-12-20 22:48 | XMS_ITS | Encounter Summary ---
Author Organization [facility] Address [address] [place] [address] Care Team Providers Care Manager Tax Name Role Phone Baljit Doll MD Primary Care Provider [phone] Marquis Diaz MD Primary Care Provider None, Provider Primary Care Provider Felipe Muniz MD Primary Care Provider [phone] Encounter Details Date Type Department Care Team (Late st Contact Info) Description 04/03/2019 Abstract SFL CONVERSION [address] [place] [address] , Generic Conversion, Social History Tobacco Use Types Packs/Day Years Used Date Smoking Tobacco: Every Day Cigarettes Alcohol Use Standard Drinks/Week Comments No 0 (1 standard drink = 0.6 oz pure alcohol) in remission of alcohol dependence. 3 years. AUDIT-C Answer Date Recorded Frequency of Alcohol Consumption Never 02/18/2019 Average Number of Drinks Not on file 019 Frequency of Binge Drinking Not on file 01/26 Sex and Gender Information Value Date Recorded Sex Assigned at Male 02/18/2019 11:03 AM CDT Legal Sex Male 4:58 PM CDT Gender Identity Male 02/18/2019 11:03 AM CDT Sexual Orientation Not on file documented as of this encounter Plan of Treatment Not on file documented as of this encounter Visit Diagnoses Not on filedocumented in this encounter Additional Health Concerns Infection Onset Date Last Indicated Resolved Time COVID-19 Rule Out 11/17/2020 11/17/2020 11/18/2020 2:41 PM [employer] COVID-19 Rule Out 08/24/2021 08/24/2021 08/25/2021 6:44 PM CDT COVID-19 Rule Out 12/08/2021 12/08/2021 12/08/2021 6:46 PM [employer] documented as of this encounter Care Teams Manager Tax Relationship Specialty Start Date End Date Baljit Doll MD [address] [place] [phone] PCP - General FAMILY PRACTICE 02/18/19 10/30/20 Marquis Diaz MD [address] [place] [phone] PCP - General FAMILY PRACTICE 10/31/20 07/21/22 None, MD [place] PCP - General 07/22/22 09/04/22 Felipe Sprague MD [address] [facility] [place] [address] PCP - General FAMILY PRACTICE 09/05/22 documented as of this encounter
--- OUTSIDE RECORDS SUMMARY | 2024-12-20 22:49 | XMS_ITS | CONTINUITY OF CARE DOCUMENT ---
Author Name masoud meredith Address Unknown Organization [facility] Address [address] [place] [address] Phone [phone] Care Team Providers Care Jewel Grinder Name Role Phone Tiburcio REYNOLDS, Kenyon Mathis Unavailable [phone] LANDON REYNOLDS, SONIDO Mcarthur Unavailable [phone] Radha REYNOLDS, Celestine Unavailable PROBLEMS Condition Status Date Provider Notes Other symptoms involving cardiovascular system completed - Kenyon Dey MD Leg pain active Jac Hill MD PAD - RLE S/P stent R iliac artery active Carito Harris Tobacco abuse active Kenyon Dey MD PAD - BLE with rest pain active Carlos Clemente PAD - LLE with rest pain active Carlos Clemente Cardiology examination active Kenyon Rehman CHEST PAIN active Kenyon Dey MD Palpitations active Kenyon Dey MD Hyperlipidemia active Carito Harris Obesity active Vick Barriga Cardiology examination active Kenyon Rehman ENCOUNTERS Date Type Provider Location Encounter Diag nosis 7 - 8 In-person encounter Office Visit Kenyon Dey MD [facility] Card[facility] examination 7 - 1 In-person encounter Office Visit Kenyon Dey MD [facility] 2 - 2023/07/1 3 In-person encounter Office Visit Kenyon Dey MD [facility] Obesity 3 - 4 In-person encounter Office Visit Kenyon Dey MD [facility] PAD - RLE S/P stent R iliac arteryCardiology examinationCHEST PAINPalpitationsHyperlipidemia 3 - 4 In-person encounter Office Visit Kenyon Dey MD [facility] PAD - BLE with rest painPAD - LLE with rest pain 8 - 8 In-person encounter Office Visit Dong Bass MD [facility] 9 - 0 In-person encounter Office Visit Kenyon Dey MD [facility] Other symptoms involving cardiovascular systemPAD - RLE S/P stent R iliac arteryTobacco abuse 7 - 9 In-person encounter Office Visit Jac Hill MD [facility] Leg painPAD - RLE S/P stent R iliac artery VITAL SIGNS Date Observation Value Provider Body Mass Index (Ratio) 31.46 kg/m2 Pascual branch Isreal blood pressure, diastolic 80 mm[Hg] Li nkLogic blood pressure, systolic 136 mm[Hg] Lexis kLog blood pressure, cuff size regular Kel dietrich Britt blood pressure, diastolic 80 mm[Hg] Ta karlo Britt blood pressure, systolic 136 mm[Hg] Tab itha Britt oxygen saturation, oximetry 97 % Chelsie Britt pulse rate 78 /min Chelsie Britt respiratory rate E&M 12 /min Chelsie Britt weight E&M 232 [lb_av] Chelsie Britt height E&M 72 [in_i] Chelsie Britt Body Mass Index (Ratio) 31.87 kg/m2 Mike Larose pulse rate 75 /min Chelsie Britt blood pressure, cuff size regular Kel juddha Britt blood pressure, diastolic 82 mm[Hg] Kel Britt blood pressure, systolic 132 mm[Hg] Zac Britt oxygen saturation, oximetry 96 % Chelsie Britt weight E&M 235 [lb_av] Chelsie Britt respiratory rate E&M 12 /min Chelsie Britt height E&M 72 [in_i] Chelsie Britt Body Mass Index (Ratio) 33.77 kg/m2 Candelario orosco Linus pulse rate 70 /min Kamala Edwar blood pressure, diastolic 84 mm[Hg] Elaine bridges Edwar blood pressure, systolic 131 mm[Hg] Cate yost Edwar weight E&M 249 [lb_av] Kamala Edwar oxygen saturation, oximetry 96 % Kamala Edwar blood pressure, cuff size large An cyrus Edwar height E&M 72 [in_i] Kamala Edwar Body Mass Index (Ratio) 34.58 kg/m2 Harriet Harris blood pressure, diastolic 81 mm[Hg] Gretel luaLogjoshua blood pressure, systolic 114 mm[Hg] Lexis Pereira blood pressure, diastolic 81 mm[Hg] Patricia Sebastian blood pressure, systolic 114 mm[Hg] Jame Sebastian oxygen saturation, oximetry 98 % Ema Sebastian pulse rate 76 /min Ema rehman weight E&M 255 [lb_av] Ema rehman respiratory rate E&M 16 /min Zenobia Sebastian blood pressure, cuff size large Patricia Sebastian height E&M 72 [in_i] Ema rehman Body Mass Index (Ratio) 35.64 kg/m2 Barney Clemente blood pressure, diastolic 80 mm[Hg] Gretel luaLogjoshua blood pressure, systolic 135 mm[Hg] Lexis kLogjoshua blood pressure, cuff size regular Abdirizak Simon blood pressure, diastolic 80 mm[Hg] Abdirizak Simon blood pressure, systolic 135 mm[Hg] She pacheco Simon oxygen saturation, oximetry 99 % Archana Simon respiratory rate E&M 18 /min Archana Simon pulse rate 110 /min Archana Simon weight E&M 262.8 [lb_av] Archana Simon height E&M 72 [in_i] Archana Simon Body Mass Index (Ratio) 33.47 kg/m2 Nash Bass MD blood pressure, diastolic 95 mm[Hg] Juany Ireland blood pressure, systolic 135 mm[Hg] Maira Ireland oxygen saturation, oximetry 98 % Jayme Alfaroenson respiratory rate E&M 18 /min David shea AlfaroIreland pulse rate 68 /min Jayme Andrei christ weight E&M 246.8 [lb_av] Jayme Dominic tyrell height E&M 72 [in_i] Jayme Forbes christ blood pressure, diastolic, left arm 85 mm [Hg] Alla Neri blood pressure, systolic, left arm 126 mm [Hg] Alla Neri blood pressure, diastolic, right arm 86 m m[Hg] Alla Neri blood pressure, systolic, right arm 131 m m[Hg] Alla Neri blood pressure, diastolic 86 mm[Hg] Ga rohini Neri blood pressure, systolic 131 mm[Hg] Kadie tello Neri pulse rate 81 /min Alla Neri oxygen saturation, oximetry 98 % Alla Neri respiratory rate E&M 18 /min Alla Neri Body Mass Index (Ratio) 30.65 kg/m2 Rox He weight E&M 226 [lb_av] Alla He blood pressure, diastolic 86 mm[Hg] Me rohini He blood pressure, systolic 133 mm[Hg] Kadie He pulse rate 89 /min Alla He oxygen saturation, oximetry 98 % Alla He respiratory rate E&M 18 /min Alla He Body Mass Index (Ratio) 29.56 kg/m2 Rox He height E&M 72 [in_i] Alla He weight E&M 218 [lb_av] Alla He ALLERGIES Allergy Name Onset Date Reaction Criticality Status STEROIDS Low Criticality active RESULTS Date Observation Value Provider Reference Range Interpretation Location basophils as percent of blood leukocytes 0.9 % [facility] Normal eosinophils as percent of blood leukocytes 2.0 % [facility] Normal monocyte count, blood 5.8 % [facility] Normal lymphocyte count, blood 25.5 % [facility] Normal neutrophils as percent of blood leukocytes 65.8 % [facility] Normal basophils, absolute, manual 41 cells/mcL [facility] 0-200 Normal eosinophils, absolute, manual 90 cells/mcL [facility] 15-500 Normal monocytes, absolute, manual 261 cells/mcL [facility] 200-950 Normal lymphocytes, absolute 1148 CELLS/UL [facility] 850-3900 Normal Absolute Neutrophil count 2961 cells/mcL [facility] 3968-7935 Normal mean platelet volume 11.5 fL [facility] 7.5-12.5 Normal platelet count 216 THOUSAND/UL [facility] 140-400 Normal red blood cell distribution width 12.6 % [facility] 11.0-15.0 Normal mean corpuscular hemoglobin concentration, RBC 32.7 G/DL [facility] 32.0-36.0 Normal mean corpuscular hemoglobin, RBC 30.3 pg [facility] 27.0-33.0 Normal mean corpuscular volume, RBC 92.5 fL [facility] 80.0-100.0 Normal hematocrit, blood 44.6 % [facility] 38.5-50.0 Normal hemoglobin electrophoresis, blood 14.6 [facility] 13.2-17.1 Normal erythrocyte (RBC) count 4.82 MILLION/UL [facility] 4.20-5.80 Normal leukocyte (white blood cells) count, blood 4.5 THOUSAND/UL [facility] 3.8-10.8 Normal calcium, serum 9.5 mg/dL [facility] 8.6-10.3 Normal carbon dioxide, venous blood 25 mmol/L [facility] 20-32 Normal chloride, serum 106 mmol/L [facility] 98-110 Normal potassium, serum 4.8 mmol/L [facility] 3.5-5.3 Normal sodium, serum 138 mmol/L [facility] 135-146 Normal urea nitrogen/creatin ine ratio, serum NOT APPLICABLE (calc) [facility] 6-22 creatinine, serum 0.87 mg/dL [facility] 0.70-1.30 Normal urea nitrogen, blood 13 mg/dL [facility] 7-25 Normal blood glucose, random 134 mg/dL [facility] 65-99 High cholesterol, non-HDL, total 159 MG/DL (CALC) [facility] <130 High cholesterol/HDL ratio, serum, percent 4.3 (calc) [facility] <5.0 Normal LDL cholesterol, serum 143 MG/DL (CALC) [facility] High triglyceride, serum, fasting 69 mg/dL [facility] <150 Normal HDL cholesterol, serum 48 mg/dL [facility] > OR = 40 Normal cholesterol, serum 207 mg/dL [facility] <200 High LDL cholesterol, serum 119 mg/dL Kenyon Dey MD HISTORY OF MEDICATION USE Medication Status Instructions Dates Provider Indications Com ments Crestor 40 mg tablet active Take 1 tablet by mouth once a day 7 Kenyon Dey MD Ozempic 1 mg/dose (4 mg/3 mL) pen injector completed - 7 Chelsie Britt aspirin 81 mg tablet,delayed release (DR/EC) active Take 1 tablet by mouth once a day Beth Malloy Plavix 75 mg tablet active Take 1 tablet by mouth once a day TAKE 1 TABLET BY MOUTH EVERY DAY Kenyon Dey MD morphine 30 mg tablet active 1 tablet by mouth twice a day Jayme Ireland HYDROCODONE-FLAKO TAMINOPHEN 5-325 MG ORAL TABLET completed Take 1 tab by mouth every eight hours as needed for pain. 3 - 2 Alla He COUMADIN 10 MG ORAL TABLET completed once daily - 2 Jayme Ireland VICODIN TABS completed 10/500mg 1 tab p o q6 prn pain 0 - 2 Alla He SOCIAL HISTORY Date Observation Value Provider alcohol use no Kenyon Dey MD passive cigarette sm reilly exposure yes Kenyon Dey MD smoking, date started 1988 Kenyon Dey MD smoking history, tot al pack/year 34 Kenyon Dey MD smoking history, tot al pack/day 1 Kenyon Dey MD cigarette use yes Kenyon Dey MD smoking status Former smoker Kenyon Dey MD alcohol use no Seth randall passive cigarette sm reilly exposure yes Seth Larose smoking, date started 1988 Seth Larose smoking history, tot al pack/year 34 Seth Larose smoking history, tot al pack/day 1 Seth Larose cigarette use yes Seth Chopra ch smoking status Former smoker Seth elena smoking status Former smoker Kenyon Dey MD social history reviewed E&M revi ewed - no changes required Kenyon Dey MD passive cigarette sm reilly exposure yes Kamala Vann smoking, date started 1988 Kamala Kate cooney smoking history, tot al pack/year 34 Kamala Vann smoking history, tot al pack/day 1 Kamala Edwar cigarette use yes Kamala Edwar social history E&M Marital Statu s: Kirsten [place]: 2 O ccupation: Disabled Smoking History: P atient is a former smoker. Carito Harris social history reviewed E&M revi ewed - no changes required Carito Harris passive cigarette sm reilly exposure yes Ema Sebastian smoking, date started 1988 Steve Castaneda smoking history, tot al pack/year 34 Ema Sebastian smoking history, tot al pack/day 1 Ema Sebastian cigarette use yes Ema Vegas quiana smoking status Former smoker Ema lincoln smoking history, tot al pack/year 34 Colleen O'Walker number of grandchildren Kenyon Dey MD social history reviewed E&M revi ewed - no changes required Kenyon Dey MD alcohol use no Kenyon Dey MD social history E&M Marital Statu s: [place]irsten [place]: 2 O ccupation: Disabled Smoking History: P atient is a former smoker. Kenyon Dey MD smoking status Former smoker Kenyon Dey MD alcohol use no Dong Rehman passive cigarette sm reilly exposure yes Dong Bass MD social history reviewed E&M revi ewed - no changes required Dong Bass MD social history E&M Marital Statu s: Kirsten gill[place]: 2 O ccupation: Disabled Smoking History: P atpalak currently smokes every day. P atient has been counseled to quit. Dong Bass MD smoking/tobacco cess ation, patient education and counseling yes Jayme Ireland smoking, date started 1988 Diane Ireland smoking history, tot al pack/day 1 Jayme Ireland cigarette use yes Jayme santillan smoking status Current every day smoker Delfina Ireland social history E&M Smoking Histo ry: P atpalak currently smokes every day. P atient has been counseled to quit. Kenyon Dey MD social history reviewed E&M revi ewed - no changes required Kenyon Dey MD smoking/tobacco cess ation, patient education and counseling yes Alla He smoking, date started 1988 Mariusz He smoking history, tot al pack/day 1 Alla He cigarette use yes Alla He smoking status Current every day smoker Delfina He social history reviewed E&M revi ewed - no changes required Jac Hill MD smoking, date started 1988 Mariusz He smoking history, tot al pack/day 1 Alla He cigarette use yes Alla He smoking status Current every day smoker Delfina He FAMILY HISTORY Family Member Condition Father Family History of Hy pertension: INSURANCE PROVIDERS Payer name Policy type / Coverage type [facility] Medicaid 9 [id number] [place] MEDICARE Medicare [id number] ADVANCE DIRECTIVES Name Date DISCUSSED - NO DECISION MADE TREATMENT PLAN Date Name Performer [id number],C, T he patient has hx of PVD. 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 C/o of pain in right leg. CT angiography total occluison of right iliac artery and moderate stenosis of left iliac artery. Kenyon Dey MD [id number],C, S /P successful intervention of totally occluded right iliac artery. The pt reports signifciant improvement of the healing of the right foot. LDL is 143. Kenyon Delfina Tiburcio REYNOLDS [id number],C, Kenyon Mathis Tiburcio REYNOLDS [id number],S, S till feels occasional chest pain. His updated medication list for this problem includes: Aspirin 81 Mg Tablet,delayed Release (dr/ec) (Aspirin) ..... Take 1 tablet by mouth once a day Plavix 75 Mg Tablet (Clopidogrel) ..... Take 1 tablet by mouth once a day take 1 tablet by mouth every day Kenyon Delfina Tiburcio REYNOLDS [id number],S, S till feels occasional palpitations and chest tightness. E cho showed 60%. S tress test was normal. H olter monitor showed few PVCs, but overall was normal. Kenyon Dey MD [id number],S, O nly symptomatic when walking, feels tightness in the left calf. Kenyon Delfina Tiburcio REYNOLDS [id number],C, LDL is 143, will start Crestor 40 mg daily.. In a few months, will check lipids, LFTs, Lp(a), CRP, UACR. Carito Harris [id number],C, T he Patient was reencouraged to stop smoking. Carito Harris [id number],C,H e reports palpitations and occasional chest discomfort, we will obtain stress myoview, echo, and one week telesentry. In a few months, will check lipids, LFTs, Lp(a), CRP, UACR. His updated medication list for this problem includes: Aspirin 81 Mg Tablet,delayed Release (dr/ec) (Aspirin) ..... Take 1 tablet by mouth once a day Plavix 75 Mg Tablet (Clopidogrel) ..... Take 1 tablet by mouth once a day take 1 tablet by mouth every day Carito Harris [id number],C,S /P successful intervention of totally occluded right iliac artery. Glen pt reports signifciant improvement of the healing of the right foot. LDL is 143, will start Crestor 40 mg daily. Carito Wallaceyuval [id number],C,Stopped smoki ng Kenyon Dey MD [id number],C, O rders: 9 9205 HIGH 60-74 min (CPT-58123) A rterial Duplex Bi-Lower EX (CPT-32649) V enous Doppler Bilateral LE - Reflux (CPT-48196) A IF Diagnostic - [facility] (CPT-06839) A IF Intervention - [facility] (CPT-99875) Kenyon Dey MD [id number],S,T he patient has hx of PVD. 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 C/o of pain in right leg. CT angiography total occluison of right iliac artery and moderate stenosis of left iliac artery. He also complains of leg pain. Will obtain arterial duplex and schedule leg intervention. Kenyon Dey MD Cardiology:Continue current medical therapy with statin, asa, and plavix A s he is able to walk distances > 1/2 mile currently he is not limited. I have encouraged him to continue exercising regularly and to not smoke cigars Kenyon Dey MD Cardiology:The Patie nt was reencouraged to stop smoking cigars. Kenyon Dey MD Cardiology: O nly symptomatic when walking, feels tightness in the left calf. C ontinue with conservative treatment P atient does not want any intervention at this time Kenyon Dey MD Cardiology: S till feels occasional chest pain. o n dapt His updated medication list for this problem includes: Plavix 75 Mg Tablet (Clopidogrel) ..... Take 1 tablet by mouth once a day take 1 tablet by mouth every day Aspirin 81 Mg Tablet,delayed Release (dr/ec) (Aspirin) ..... Take 1 tablet by mouth once a day Kenyon Dey MD Cardiology: H is updated medication list for this problem includes: Crestor 40 Mg Tablet (Rosuvastatin) ..... Take 1 tablet by mouth once a day Kenyon Dey MD Cardiology Kenyon Dey MD Cardiology: We will start crestor 40 mg daily becasue LDL 143 H is updated medication list for this problem includes: Crestor 40 Mg Tablet (Rosuvastatin) ..... Take 1 tablet by mouth once a day This visit has been a part of the consistent, comprehensive, and ongoing management of the chronic medical condition(s) listed above for the patient. Seth Larose Cardiology:Pt compla ins of clauidication involving right lower extremeity. We will obtain arterial dupplex to assess arterial bloodflow and f/u echo. This visit has been a part of the consistent, comprehensive, and ongoing management of the chronic medical condition(s) listed above for the patient. Seth Larose Cardiology: T he Patient was reencouraged to stop smoking. Seth Larose Cardiology: T he patient has hx of PVD. 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 C/o of pain in right leg. CT angiography total occluison of right iliac artery and moderate stenosis of left iliac artery. Kenyon Dey MD Cardiology: S /P successful intervention of totally occluded right iliac artery. The pt reports signifciant improvement of the healing of the right foot. LDL is 143. Kenyon Dey MD Cardiology Kenyon Dey MD Cardiology: S till feels occasional chest pain. His updated medication list for this problem includes: Aspirin 81 Mg Tablet,delayed Release (dr/ec) (Aspirin) ..... Take 1 tablet by mouth once a day Plavix 75 Mg Tablet (Clopidogrel) ..... Take 1 tablet by mouth once a day take 1 tablet by mouth every day Kenyon Dey MD Cardiology: S till feels occasional palpitations and chest tightness. E cho showed 60%. S tress test was normal. H olter monitor showed few PVCs, but overall was normal. Kenyon Dey MD Cardiology: O nly symptomatic when walking, feels tightness in the left calf. Kenyon Dey MD Cardiology: LDL is 1 43, will start Crestor 40 mg daily.. In a few months, will check lipids, LFTs, Lp(a), CRP, UACR. Carito Harris Cardiology: T he Patient was reencouraged to stop smoking. Carito Harris Cardiology:He report s palpitations and occasional chest discomfort, we will obtain stress myoview, echo, and one week telesentry. In a few months, will check lipids, LFTs, Lp(a), CRP, UACR. H is updated medication list for this problem includes: Aspirin 81 Mg Tablet,delayed Release (dr/ec) (Aspirin) ..... Take 1 tablet by mouth once a day Plavix 75 Mg Tablet (Clopidogrel) ..... Take 1 tablet by mouth once a day take 1 tablet by mouth every day Carito Harris Cardiology:S/P succe ssful intervention of totally occluded right iliac artery. Glen pt reports signifciant improvement of the healing of the right foot. LDL is 143, will start Crestor 40 mg daily. Carito Harris Cardiology:Stopped smoking Kenyon Dey MD Cardiology: O rders: 9 9205 HIGH 60-74 min (CPT-09369) A rterial Duplex Bi-Lower EX (CPT-54515) V enous Doppler Bilateral LE - Reflux (CPT-22714) A IF Diagnostic - [facility] (CPT-09172) A IF Intervention - [facility] (CPT-60119) Kenyon Dey MD Cardiology:The patie nt has hx of PVD. 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 C/o of pain in right leg. CT angiography total occluison of right iliac artery and moderate stenosis of left iliac artery. He also complains of leg pain. Will obtain arterial duplex and schedule leg intervention. Carlos Clemente Cardiology Dong Bass MD Cardiology Dong Bass MD Cardiology Dong Bass MD Cardiology:Patient i s strongly advised to stop smoking. Kenyon Dey MD Cardiology:Pt s/p in tervention for acute ischemia of the RLE. Doing well. Recent duplex showed patent vessels in the extremities. Continue Coumadin. INR is followed by Dr. Sahu. Kenyon Dey MD Cardiology:Pt s/p in tervention for acute ischemia of the RLE. Doing well. Recent duplex showed patent vessels in the extremities. Continue Coumadin. INR is followed by Dr. Sahu. Kenyon Dey MD Cardiology:Pt s/p in tervention for acute ischemia of the RLE. Doing well. Recent duplex showed patent vessels in the extremities. Continue Coumadin. INR is followed by Dr. Sahu. Kenyon Dey MD Cardiology: O rders: 9 9215 HIGH Complex (CPT-52925) A rterial Duplex Bi-Lower EX (CPT-43810) A rterial - SENSILASE (CPT-26984) C arotid Duplex Bilateral (CPT-20496) Jac Hill MD Cardiology: O rders: 9 9215 HIGH Complex (CPT-80327) A rterial Duplex Bi-Lower EX (CPT-39710) A rterial - SENSILASE (CPT-89690) C arotid Duplex Bilateral (CPT-60786) Jac Hill MD Date Name COMPREHENSIVE METABO LIC PANEL, W/EGFR LIPID PANEL Arterial Duplex Bi-L ower EX Complete Echo RPM (remote patient monitoring) Monitor - Telemetry (Mobile Cardiac) LIPID PANEL Lipoprotein (a) CRP, high sensitivit y Microalb/Creatinine Urine, Random HEMOGLOBIN A1c BASIC METABOLIC PANE L W/EGFR Stress Exercise Card iolite Complete Echo PROTHROMBIN TIME WIT H INR LIPID PANEL CBC (INCLUDES DIFF/P LT) BASIC METABOLIC PANE L W/EGFR AIF Intervention - S [facility] AIF Diagnostic - [facility] V Venous Doppler Bilat eral LE - Reflux Arterial Duplex Bi-L ower EX Arterial Duplex Bi-L ower EX STR - Adenosine Complete Echo Carotid Duplex Bilat eral Arterial - SENSILASE Arterial Duplex Bi-L ower EX HISTORY OF PROCEDURES Procedure Date Procedure Name Provider Procedure Notes S tatus Complex e/m visit add on Kenyon Dey MD completed EKG Kenyon Dey MD completed EKG Kenyon Dey MD completed EKG Kenyon Dey MD completed Regadenoson, 4 units Dong Bass MD completed Cardiolite, 2 units Dong Bass MD completed SPECT Images Joselo Muñoz MD complet ed Stress EKG Dong Bass MD complete d EKG Dong Bass MD complete d SNOMED-CT: 225545524 Smoking Cessation Counseling Kenyon Dey MD completed SNOMED-CT: 734667736 [id number] Current Medications Documented Kenyon Dey MD completed SNOMED-CT: 215274433 167235 Current Medications Documented Jac Hill MD completed SNOMED-CT: 737231799 Smoking Cessation Counseling Jac Hill MD completed SNOMED-CT: 61291608 Physical Exam, Performed: Pulse Exam of Foot Jac Hill MD completed EKG Jac Hill MD completed SNOMED-CT: 966678975 516033 Current Medications Documented Jac iHll MD completed
--- OUTSIDE RECORDS SUMMARY | 2024-12-20 22:49 | XMS_ITS | Clinical Summary ---
Author Organization [facility] Address [address] [place] [address] Care Team Providers Care Turret Press Operator Name Role Phone Amarilys Macdonald Unavailable Unavailable Medardo Carranza MD Unavailable [phone] Puma Andrade MD Unavailable [phone] Felipe Sprague MD Primary Care Provider [phone] Chris Kay NP Unavailable [phone] Allergies Active Allergy Reactions Criticality Noted Date Comments Methylprednisolone Other Unknown Low 01/11/2016 Prednisone Angioedema High Ketorolac Stomach upset Low 12/05/2021 Medications nitroglycerin (NITROSTAT) 0.4 mg SL tabletIndicatio ns:acute episode of anginal pain Place 1 tablet (0.4 mg total) under the tongue every 5 (five) minutes as needed for chest pain 90 tablet 3 Active clopidogreL (PLAVIX) 75 mg tablet Take 1 tablet (75 mg total) by mouth daily 0 Active morphine 10 mg/mL injection 0 4 Active metoclopramide (REGLAN) 10 mg tablet Take 1 tablet (10 mg total) by mouth every 8 (eight) hours as needed (Nausea, early satiety/bloating ) 30 tablet 4 Active Additional Information Patient not taking.Reported on 12/01/2024 rosuvastatin (Crestor) 40 mg tablet Crestor 40 mg tablet 4 Active furosemide (LASIX) 80 mg tablet Take 1 tablet (80 mg total) by mouth as needed 12/17/202 4 Active potassium citrate ER (UROCIT-K) 10 mEq (1,080 mg) CR tablet Take 1 tablet (10 mEq total) by mouth 2 (two) times a day Active Active Problems Problem Noted Date Diagnosed Date Cervicogenic headache 11/09/2024 Cervical spinal stenosis 09/30/2024 Hx of migraines 08/17/2024 Cervical spondylosis without myelopathy 08/10/20 Cervicalgia 08/10/2024 Occipital neuralgia of left side 08/10/2024 Myalgia 05/06/2024 Sacroiliitis 12/09/2023 Presence of intrathecal pump 12/09/2023 Spinal cord stimulator dysfunction, sequela 11/27 PVD (peripheral vascular disease) 12/25/2022 Chest pain 11/20/2022 Chest pain, unspecified type 11/19/2022 Ileus of unspecified type 12/06/2021 IO (intestinal obstruction) ([facility]) 12/05/2021 Lumbar radiculopathy 12/05/2020 Overview (12/05/2020): Added automatically from request for surgery [id number] Spinal cord stimulator status 11/24/2018 Overview (11/24/2018): Added automatically from request for surgery [id number] Chronic left-sided low back pain with left-sided sciatica 11/24/2018 Overview (11/24/2018): Added automatically from request for surgery [id number] Abdominal pain Other chronic pain Hyperlipidemia Tobacco dependence Resolved Problems Problem Noted Date Diagnosed Date Resolved Date Opioid withdrawal 02/14/2020 12/09/2023 Encounters Date Type Department Care Team Description 12/01/2024 10:15 AM PROM BURN OFF OPERATOR - 12/01/2024 11:59 PM PROM BURN OFF OPERATOR Hospital Encounter [facility] [address] [place] [phone] Chris Kay NP Cervicogenic headache (Primary Dx); Cervicalgia; Cervical spondylosis without myelopathy; Cervical spinal stenosis Discharge Disposition: Discharge to home or self care 12/01/2024 Telephone [facility] [address] [place] [phone] Gladis Bernal 11/24/2024 9:15 AM PROM BURN OFF OPERATOR - 11/24/2024 11:59 PM PROM BURN OFF OPERATOR Hospital Encounter [facility] [address] [place] [phone] Rashaun Alfaro MD Cervical spinal stenosis [M48.02]; Cervical spondylosis without myelopathy; Cervical spinal stenosis Discharge Disposition: Discharge to home or self care 11/09/2024 11:59 AM PROM BURN OFF OPERATOR - 11/09/2024 11:59 PM PROM BURN OFF OPERATOR Hospital Encounter [facility] [address] [place] [phone] Chris Kay NP Cervical spinal stenosis [M48.02] (Primary Dx); Cervical spondylosis without myelopathy; Cervicalgia; Cervicogenic headache Discharge Disposition: Discharge to home or self care 10/13/2024 1:55 PM PROM BURN OFF OPERATOR - 10/13/2024 11:59 PM PROM BURN OFF OPERATOR Hospital Encounter [facility] [address] [place] [phone] Rashaun Alfaro MD Cervical spinal stenosis [M48.02] (Primary Dx); Cervical spondylosis without myelopathy; Cervicalgia; Radiculopathy, cervical region Discharge Disposition: Discharge to home or self care 10/04/2024 Documentation [facility] [address] [place] [phone] Lynn Fox RN 09/30/2024 8:40 AM PROM BURN OFF OPERATOR - 09/30/2024 11:59 PM PROM BURN OFF OPERATOR Hospital Encounter [facility] [address] [place] [phone] Chris Kay NP Cervical spondylosis without myelopathy (Primary Dx); Cervicalgia; Hx of migraines; Radiculopathy, cervical region; Cervical spinal stenosis Discharge Disposition: Discharge to home or self care 09/20/2024 12:19 PM PROM BURN OFF OPERATOR - 09/20/2024 11:59 PM PROM BURN OFF OPERATOR Hospital Encounter [facility] [address] [place] [phone] Cervicalgia; Cervical spondylosis without myelopathy Discharge Disposition: Discharge to home or self care from Last 3 Months Surgical History Surgery Date Site/Laterality Comments ANGIOPLASTY / STENTING FEMORAL SPINAL CORD STIMULATOR IMPLANT Left 2020? INTRATHECAL PUMP IMPLANTATION 2021? Medical History Medical History Date Comments Alcoholism (CMS/HCC) (HCC) Alcoh olism Staph aureus infection Spinal stenosis L1-5 Arthritis Back Peripheral vascular disease (HCC) Bilateral feet Adhd Thyroid disease Family History Medical History Relation Name Comments Hypertension Father Relation Name Status Comments Father Mother Social History Tobacco Use Types Packs/Day Years Used Date Smoking Tobacco: Former Cigarettes Smokeless Tobacco: Current Chew Tobacco Cessation:Ready to Q uit: Not Asked; Counseling Given: Not Answered Comments:Smokes an occasional cigar Alcohol Use Standard Drinks/Week Comments No 0 (1 standard drink = 0.6 oz pur e alcohol) AUDIT-C Answer Date Recorded Q1: How often do you have a drink containing alc ohol? Never 11/19/2022 Average Number of Drinks Not on file 023 Q3: How often do you have si x or more drinks on one occasion? Never 11/19/2022 PHQ-2 Answer Date Recorded PHQ-2 Total Score (If total score is 3 or more points, staff should administer the PHQ-9) 0 03/09/2021 Personal Safety Answer Date Recorded Have you ever been in or are you currently in a harmful physical or emotional relationship or is someone making you feel afraid or unsafe? Denies 12/16/2023 Sex and Gender Information Value Date Recorded Sex Assigned at Not on file Legal Sex Male 11:49 PM PROM BURN OFF OPERATOR Gender Identity Not on file Sexual Orientation Not on file Obstetrics History Last Filed Vital Signs Vital Sign Reading Time Taken Comments Blood Pressure 136/86 12/01/2024 10:22 AM PROM BURN OFF OPERATOR Pulse 71 12/01/2024 10:22 AM PROM BURN OFF OPERATOR Temperature 37.1 C (98.7 F) 11/24/2024 9:27 AM PROM BURN OFF OPERATOR Respiratory Rate 16 12/01/2024 10:2 2 AM PROM BURN OFF OPERATOR Oxygen Saturation 99% 12/01/2024 10: 22 AM PROM BURN OFF OPERATOR Inhaled Oxygen Concentration - - Weight 115.8 kg (255 lb 3.2 oz) 024 12:42 PM PROM BURN OFF OPERATOR Height 182.9 cm (6') 12/17/2023 12:42 PM PROM BURN OFF OPERATOR Body Mass Index 34.61 12/17/2023 12:42 PM PROM BURN OFF OPERATOR Plan of Treatment Health Maintenance Due Date Last Done Comments Colon Cancer Screening-Colonoscopy 1967 Prostate Cancer Screening-PSA 1967 DTaP/Tdap/Td Vaccine (1 - Tdap) 1978 Hepatitis B Screening 1985 Regular Well Visit/Exam 18-64 1985 Pneumococcal vaccine <65 (1 of 2 - PCV) 1986 Zoster Vaccine (1 of 2) 2017 Depression Screening 02/06/2022 02/06/2021 Influenza Vaccine (#1) 2024 Hepatitis C Screening Completed 12/14/2015 , 12/11/2015, 07/04/2014, Additional history exists Medical Devices Implanted Type Area [employer] Sales Consultant Device Identifier Shelf Expiration Date Model / Serial / Lot [employer] 1192 [employer]-[place] Lead - [id number] Implanted:Qty: 2 on 12/18/2018 by Jesse Hollis MD at [facility] N/A: Spine Thoracic [employer] 11/10/2020 1192 / / [id number] [employer] [id number] Octrode 60cm 8 Electrode Lead Percutaneous Kit Neurostimulator - [id number] Implanted:Qty: 1 on 12/18/2018 by Jesse Hollis MD at [facility] N/A: Spine Thoracic [employer] 08/10/2020 [id number] / / [id number] [employer] 3186ans Octrode 60cm 8 Electrode Lead Percutaneous Kit Neurostimulator - [id number] Implanted:Qty: 1 on 12/18/2018 by Jesse Hollis MD at [facility] N/A: Spine Thoracic [employer] 08/10/2020 [id number] / / [id number] [employer] 3662 Proclaim Elite 2.63inx1.98in 7 Ipg Implantable Recharge Free - [id number] Implanted:Qty: 1 on 12/18/2018 by Jesse Hollis MD at [facility] N/A: Back [employer] 11/11/2020 3662 / / [id number] Medtronic Neuro 8637-20 Synchromed Ii .78in Peever Filter Mesh Pouch Programmable - [id number] - [id number] Implanted:Qty: 1 on 03/09/2021 by Jesse Hollis MD at [facility] N/A: Abdomen [employer] 08/09/2022 8637-20 / [id number] / [employer] Inc 8780 Ascenda 4fr .5mm 114cm 86cm 2 Piece Connector Pin Flexible Closed - [id number] Implanted:Qty: 1 on 03/09/2021 by Jesse Hollis MD at [facility] N/A: Back [employer] 11/17/2022 8780 / / [id number] Procedures Procedure Name Priority Date/Time Associated Diagnosis Comments PAIN MGMT IMAGING CERVICAL/THORACIC FACET/MEDIAL BRANCH BLOCK BILATERAL Schedule Routine, Read Routine (OP Routine) 11/24/2024 9:46 AM PROM BURN OFF OPERATOR Cervical spinal stenosis Cervical spondylosis without myelopathy PAIN MGMT IMAGING CERVICAL/THORACIC EPIDURAL STEROID INJ Schedule Routine, Read Routine (OP Routine) 10/13/2024 2:37 PM PROM BURN OFF OPERATOR Cervical spondylosis without myelopathy Cervicalgia Radiculopathy, cervical region CT CERVICAL SPINE WO CONTRAST Schedule Routine, Read Routine (OP Routine) 09/20/2024 12:36 PM PROM BURN OFF OPERATOR Cervicalgia Cervical spondylosis without myelopathy SERUM HEPATITIS C AB Routine 12/14/2015 8:09 AM PROM BURN OFF OPERATOR from Last 3 Months or Most Recently Relevant to Health Maintenance Results * Imaging Cervical/Thoracic Facet Medial Branch Block Bilateral (20421) (11/24/2024 9:46 AM PROM BURN OFF OPERATOR) Narrative RAD_PACS_[facility] - 11/24/2024 9:46 AM PROM BURN OFF OPERATOR The images from this study are not interpreted by Radiology. Please refer to the physician's procedure / OR operative note. us Chris Kay PENCILLER IMG PAIN MGMT PROCEDURES Yael l Result RAD_PACS_[facility] * Imaging Cervical/Thoracic Epidural Steroid INJ ([id number]) (10/13/2024 2:37 PM PROM BURN OFF OPERATOR) Narrative RAD_[facility] - 10/13/2024 2:38 PM PROM BURN OFF OPERATOR The images from this study are not interpreted by Radiology. Please refer to the physician's procedure / OR operative note. Chris Weber Landenaleida PENCILLER IMG PAIN MGMT PROCEDURES Yael l Result RAD_PACS_[facility] * CT cervical spine without contrast (09/20/2024 12:36 PM PROM BURN OFF OPERATOR) Anatomical Region Laterality Modality Spine N/A Computed Tomogra phy 09/22/2024 7:06 AM PROM BURN OFF OPERATOR Narrative 09/22/2024 7:47 AM PROM BURN OFF OPERATOR EXAM DESCRIPTION: CT CERVICAL SPINE WO CONTRAST REASON FOR STUDY: Neck pain, chronic Pt states for the last 1-2 years he has been having pain in his neck that causes migraines. TECHNIQUE: Axial images through the cervical spine with sagittal and coronal reformatted images. Automated exposure control was used as a dose optimization technique for this examination. COMPARISON: Cervical spine CT dated 11/19/2022 FINDINGS: ALIGNMENT: Straightening of the cervical lordosis. VERTEBRAE: Moderate to severe endplate degenerative changes and marginal spur formation at C6-C7 and to a lesser extent at C5-C6 and remainder of the cervical levels. Additional degenerative changes of the C1-C2 interval. DISCS: Multilevel intervertebral disc height loss ranging up to severe at C6-C7. HARDWARE: None in the spine. INDIVIDUAL LEVELS: Suboptimally evaluated by non myelographic CT technique. C2-C3: No significant disc bulge, osseous spinal canal or neural foraminal narrowing. There is facet arthropathy. C3-C4: Disc bulge with thickened ligamentum flavum. No significant osseous spinal canal stenosis. Uncovertebral spurring and facet arthropathy with mild osseous neural foraminal narrowing C4-C5: Posterior disc osteophyte complex and thickened ligamentum flavum. No significant osseous spinal canal stenosis. Uncovertebral spurring and facet arthropathy with moderate right and pixh-de-tbtnubsb left osseous neural foraminal narrowing. C5-C6: Posterior disc osteophyte complex and thickened ligamentum flavum. Vsqg-jj-djiybgbc osseous spinal canal stenosis. Uncovertebral spurring and facet arthropathy with moderate osseous neural foraminal narrowing. C6-C7: Posterior disc osteophyte complex and thickened ligamentum flavum. Vnah-ep-atmujuno osseous spinal canal stenosis. Uncovertebral spurring and facet arthropathy with severe neural foraminal narrowing. C7-T1: Posterior disc osteophyte complex and thickened ligamentum flavum. No significant osseous spinal canal stenosis. Uncovertebral spurring and facet arthropathy with mild right and vrzh-vj-rzxlriuq left osseous neural foraminal narrowing. UPPER THORACIC: Incompletely imaged. Degenerative changes high-grade osseous spinal canal stenosis. LUNG APICES: No focal pneumonic consolidation. NECK SOFT TISSUES: Calcified plaque in the bilateral carotid vasculature. IMPRESSION: 1. Cervical disc degeneration ranging from moderate to severe with thickened ligamentum flavum, uncovertebral spurring and facet arthropathy as seen on the previous cervical spine CT dated 11/19/2022. The osseous spinal canal stenosis is most noticeable at C5-C6 and C6-C7. 2. Varying degrees of osseous neural foraminal narrowing and additional findings as above. 3. The need for further evaluation with MRI as clinically indicated. THIS IS AN ELECTRONICALLY VERIFIED FINAL REPORT 09/22/2024 7:47 AM - Electronically signed by Chuck Espinal D.O. AP: AP Report ID: [id number] Reading Location: [place] [address] Procedure Note Chuck Espinal, DO - 09/22/2024 EXAM DESCRIPTION: CT CERVICAL SPINE WO CONTRAST REASON FOR STUDY: Neck pain, chronic Pt states for the last 1-2 years he has been having pain in his neck that causes migraines. TECHNIQUE: Axial images through the cervical spine with sagittal andcoronal reformatted images. Automated exposure control was used as a doseoptimization technique for this examination. COMPARISON: Cervical spine CT dated 11/19/2022 FINDINGS: ALIGNMENT: Straightening of the cervical lordosis. VERTEBRAE: Moderate to severe endplate degenerative changes and marginal spur formation at C6-C7 and to a lesser extent at C5-C6 and remainder ofthe cervical levels. Additional degenerative changes of the C1-C2 interval. DISCS: Multilevel intervertebral disc height loss ranging up to severeat C6-C7. HARDWARE: None in the spine. INDIVIDUAL LEVELS: Suboptimally evaluated by non myelographic CT technique. C2-C3: No significant disc bulge, osseous spinal canal or neural foraminal narrowing. There is facet arthropathy. C3-C4: Disc bulge with thickened ligamentum flavum. No significantosseous spinal canal stenosis. Uncovertebral spurring and facet arthropathy withmild osseous neural foraminal narrowing C4-C5: Posterior disc osteophyte complex and thickened ligamentum flavum.No significant osseous spinal canal stenosis. Uncovertebral spurring andfacet arthropathy with moderate right and dsbr-bb-cpfmgbgf left osseous neural foraminal narrowing. C5-C6: Posterior disc osteophyte complex and thickened ligamentum flavum. Ieks-lq-pyjfxyfg osseous spinal canal stenosis. Uncovertebral spurringand facet arthropathy with moderate osseous neural foraminal narrowing. C6-C7: Posterior disc osteophyte complex and thickened ligamentum flavum. Hgde-ex-saqowjdu osseous spinal canal stenosis. Uncovertebral spurringand facet arthropathy with severe neural foraminal narrowing. C7-T1: Posterior disc osteophyte complex and thickened ligamentum flavum.No significant osseous spinal canal stenosis. Uncovertebral spurring andfacet arthropathy with mild right and vpmi-al-ucobotqn left osseous neuralforaminal narrowing. UPPER THORACIC: Incompletely imaged. Degenerative changes high-grade osseous spinal canal stenosis. LUNG APICES: No focal pneumonic consolidation. NECK SOFT TISSUES: Calcified plaque in the bilateral carotidvasculature. IMPRESSION: 1. Cervical disc degeneration ranging from moderate to severe withthickened ligamentum flavum, uncovertebral spurring and facet arthropathy as seen onthe previous cervical spine CT dated 11/19/2022. The osseous spinal canal stenosis is most noticeable at C5-C6 and C6-C7. 2. Varying degrees of osseous neural foraminal narrowing and additional findings as above. 3. The need for further evaluation with MRI as clinically indicated. THIS IS AN ELECTRONICALLY VERIFIED FINAL REPORT 09/22/2024 7:47 AM - Electronically signed by Chuck Espinal D.O. AP: EMILIO Report ID: [id number] Reading Location: [place] [address] Chris Kay PENCILLER IMG CT PROCEDURES Final Resul t * Serum Hepatitis C ab (12/14/2015 8:09 AM PROM BURN OFF OPERATOR) HCV ab Negative Negative HISTORICAL RESULTS Serum 12/14/2015 8:09 AM PROM BURN OFF OPERATOR Historical Provider LAB BLOOD ORDERABLES Yael reese Result HISTORICAL RESULTS from Last 3 Months or Most Recently Relevant to Health Maintenance Insurance MEDICARE [facility] MEDICARE MEDICARE Advance Directives For more information, please contact: [phone] * Full Code (Latest Code Status on File) Date Activated Date Inactivated Comments 11/19/2022 5:45 PM 11/22/2022 4:11 PM * Full Code Date Activated Date Inactivated Comments 12/05/2021 6:55 AM 12/06/2021 5:18 PM * Full Code Date Activated Date Inactivated Comments 03/09/2021 3:34 PM 03/10/2021 2:04 PM * Full Code Date Activated Date Inactivated Comments 12/18/2018 10:49 AM 12/18/2018 4:46 PM * Full Code Date Activated Date Inactivated Comments 06/10/2018 11:54 PM 06/13/2018 8:17 PM Care Teams Turret Press Operator Relationship Specialty Start Date End Date Felipe [place] [id number] PCP - General Family Medicine 11/19/22 Amarilys Macdonald [employer] Painter [employer] Grader Addiction Medicine 10/17/20 [place] [id number] Referring Physician Family Medicine 12/03/21 Puma Andrade MD [address] [place] [id number] Consulting Physician Endocrinology 12/06/21 [place] [id number] [place] [address] Nurse Practitioner Pain Management 09/30/24
--- OUTSIDE RECORDS SUMMARY | 2024-12-20 22:49 | XMS_ITS | Clinical Summary ---
Author Organization [facility] Address [facility] access hospital[address] [place] [address] Care Team Providers Care Display Trimmer Name Role Phone Felipe Sprague MD Primary Care Provider [phone] Allergies Active Allergy Reactions Criticality Noted Date Comments Ketorolac GI Upset Low 12/05/2021 Methylprednisolone Unknown 12/20/2021 Prednisone Unknown,Angioedema High 12/20/2021 Steroids Unknown Low 01/11/2016 Medications clopidogrel (PLAVIX) 75 MG tablet Take 1 tablet (75 mg total) by mouth daily. 03/05/2023 Active potassium citrate CR (UROCIT-K) 10 MEQ (1080 MG) tablet Take 10 mEq by mouth 2 (two) times a day. Active Active Problems Problem Noted Date Diagnosed Date Edema, unspecified type 09/05/2022 Benign prostatic hyperplasia without lower urinary tract symptoms 09/05/2022 Hypertension, essential 09/05/2022 Nephrolithiasis 08/14/2021 Overview (08/14/2021): Added automatically from request for surgery [id number] Class 1 obesity in adult 02/18/2019 Elevated LFTs 02/18/2019 Right foot injury 12/15/2018 Alcohol dependence in remission ([facility]CC HHS/HCC ) Toe infection Hyperlipidemia PVD (peripheral vascular disease) Overview (02/18/2019): Dr. Bass Tobacco use disorder Resolved Problems Problem Noted Date Diagnosed Date Resolved Date Right foot injury 12/15/2018 02/18/2019 Sebaceous cyst 09/16/2014 02/18/2019 Encounter for preventive health examination 09/15/2014 02/18/2019 Encounters Date Type Department Care Team Description 11/25/2024 1:09 PM COP - 11/25/2024 11:59 PM COP Hospital Encounter [facility] [address] [place] [address] Luz Maria Underwood III, MD Discharge Disposition: Home or Self Care (Routine Discharge) 11/25/2024 Orders Only [facility] [address] [place] [address] Luz Maria Underwood III, MD 11/25/2024 Travel 10/02/2024 9:49 PM COP - 10/02/2024 11:59 PM COP Hospital Encounter [facility] [address] [place] [address] Felipe Sprague MD Discharge Disposition: Home or Self Care (Routine Discharge) 10/02/2024 Travel from Last 3 Months Family History Medical History Relation Comments Cancer Father Relation Status Comments Father Mother Alive Social History Tobacco Use Types Packs/Day Years Used Date Smoking Tobacco: Former Cigarettes 1 25 Smokeless Tobacco: Current Chew Tobacco Cessation:Ready to Q uit: Not Asked; Counseling Given: Not Answered Alcohol Use Standard Drinks/Week Comments No 0 (1 standard drink = 0.6 oz pure alcohol) in remission of alcohol dependence. 6 years. AUDIT-C Answer Date Recorded Frequency of Alcohol Consumption Never 02/18/2019 Average Number of Drinks Not on file 019 Frequency of Binge Drinking Not on file 01/26 Sex and Gender Information Value Date Recorded Sex Assigned at Male 02/18/2019 11:03 AM CDT Legal Sex Male 4:58 PM CDT Gender Identity Male 02/18/2019 11:03 AM CDT Sexual Orientation Not on file Last Filed Vital Signs Vital Sign Reading Time Taken Comments Blood Pressure 117/80 01/12/2024 9:31 AM CDT Pulse 67 01/12/2024 9:31 AM CDT Temperature 35.8 C (96.5 F) 09/09/2023 11:43 AM COP Respiratory Rate 16 09/09/2023 11:43 AM COP Oxygen Saturation 100% 09/09/2023 11:43 AM COP Inhaled Oxygen Concentration - - Weight 113 kg (249 lb 3.2 oz) 01/12/2024 9:31 AM CDT Height 182.9 cm (6') 01/12/2024 9:31 AM CDT Body Mass Index 33.8 01/12/2024 9:31 AM CDT Plan of Treatment Health Maintenance Due Date Last Done Comments Annual Physical 1970 Hepatitis C 1985 DTaP, Tdap and Td Vaccines ( 1 - Tdap) 1986 Hepatitis B Vaccines (1 of 3 - 19+ 3-dose series) 1986 Zoster Vaccines (1 of 2) 2017 COVID-19 Vaccine (1 2023-2 5 season) 2024 Influenza Adult (#1) 2024 PHQ-2 (Physician Douglas) 10/27/2024 Colorectal Cancer Screening Colonoscopy (10 Years) 12/11/2031 12/11/2021, 12/11/2021 Meningococcal B Vaccine Aged Out No l onger eligible based on patient's age to complete this topic Meningococcal Vaccine Aged Out No amada ranjith eligible based on patient's age to complete this topic Pneumococcal Vaccine: Pediatrics (0 to 5 Years) and At-Risk Patients (6 to 64 Years) Aged Out No longer eligible b ased on patient's age to complete this topic RSV Immunizations Under 20 Months Aged Out No longer eligible b ased on patient's age to complete this topic Procedures Procedure Name Priority Date/Time Associated Diagnosis Comments PROSTATE SPECIFIC ANTIGEN,SCREENING Routine 11/25/2024 1:13 PM COP Encounter for screening for malignant neoplasm of prostate POLYSOMNOGRAPHY 4 OR MORE PARAMETERS Routine 10/02/2024 9:49 PM COP Sleep apnea COLONOSCOPY 12/11/2021 10:19 AM COP from Last 3 Months or Most Recently Relevant to Health Maintenance Results * PROSTATE SPECIFIC ANTIGEN,SCREENING (11/25/2024 1:13 PM COP) PSA 1.03 <4.00 NG/ML 11/25/2024 1:50 PM COP [facility] Comment: ASSAY PERFORMED BY ENZYME IMMUNOASSAY METHODOLOGY USING SIEMENS DIMENSION REAGENT. PATIENT RESULTS DETERMINED BY ASSAYS FROM DIFFERENT MANUFACTURERS AND/OR BY DIFFERENT METHODS MAY NOT BE COMPARABLE. 11/25/2024 1:13 PM COP Luz Maria Underwood III, MD LABORATORY Final Re sult [facility] [address] [place] [address], * Diagnostic PSG (19480, 64466) (10/02/2024 9:49 PM COP) 10/02/2024 9:49 PM COP Narrative ESCRIPTION - 10/06/2024 8:33 PM COP Patient Name: JOSÉ RIZZO Date of : 1965 Account: [id number] Facility: [facility] Location: [facility] Date of Service: 10/02/2024 Sleep Study ORDERING PROVIDER: Felipe Sprague MD INDICATION FOR STUDY: The patient has a history of obstructive sleep apnea. PATIENT DEMOGRAPHICS: A 59-year-old male with a height of 6 feet, weight of 230 pounds and BMI of 31.5. METHOD USED: Standard method for in-lab PSG with CPAP titration. FINDINGS: SLEEP SUMMARY: Total recording time 470 minutes. Total sleep time 395 minutes. Sleep onset 10 minutes. Latency to REM sleep 188 minutes and sleep efficiency 95%. SLEEP ARCHITECTURE: Stage N1 sleep 1%, stage N2 sleep 84%, stage N3 sleep 0% and stage REM sleep 15%. AROUSAL SUMMARY: The patient had spontaneous arousal index of 18 and respiratory arousal index of 0. LIMB MOVEMENT SUMMARY: The patient has periodic leg movement index of 0.5. CARDIAC SUMMARY: The patient had average heart rate of 60 beats per minute. The lowest heart rate was 49 beats per minute and the highest heart rate was 79 beats per minute. RESPIRATORY SUMMARY: The patient started the night with a CPAP pressure of 4 cm of water, then pressure was increased to overcome obstructive events, and on the final therapeutic pressure of 8 cm water, patient had no significant obstructive events. Apnea-hypopnea index was 0 with the lowest oxygen saturation of 90%. IMPRESSION: 1. Obstructive sleep apnea treated optimally with a CPAP titration study. 2. Sleep architecture was moderately abnormal in the first half of the study secondary to sleep fragmentation and improved in the second half of the study with a therapeutic CPAP pressure. 3. Supine REM sleep was seen on a pressure of 8 cm water. RECOMMENDATIONS: 1. The patient may benefit from CPAP with a pressure of 8 cm of water pressure, C-Flex of 3 using interface made by Fany De La Rosa full face mask, size medium. 2. The patient to follow up with the provider within 30-90 days of using the CPAP machine for jazo-dl-vklh evaluation and follow up on compliance report. Signature/Date: SHANTE BURTON MD #[id number] /MOS us Felipe Sprague MD SLEEP CENTER ORDERABLES Final Result ESCRIPTION * COLONOSCOPY (12/11/2021 10:19 AM COP) us Medardo Carranza MD GI PROCEDURE ORDERABLES Final Result from Last 3 Months or Most Recently Relevant to Health Maintenance Insurance MEDICARE MEDICARE Care Teams Display Trimmer Relationship Specialty Start Date End Date Felipe Sprague MD [address] [place] [id number] PCP - General FAMILY PRACTICE 09/05/22
--- OUTSIDE RECORDS SUMMARY | 2024-12-20 22:49 | XMS_ITS | Referral Summary ---
Author Organization [facility] Address [address] [place] [phone] Care Team Providers Care Radar Signal Processing Engineer Name Role Phone Amarilys Macdonald Unavailable Unavailable Medardo Carranza MD Unavailable [phone] Puma Andrade MD Unavailable [phone] Felipe Sprague MD Primary Care Provider [phone] Chris Kay NP Unavailable [phone] Encounters Date Type Department Care Team Description 12/01/2024 Telephone [facility] [address] [place] [address] Gladis Bernal 12/01/2024 10:15 AM TOOL SHAPER SETUP OPERATOR - 12/01/2024 11:59 PM TOOL SHAPER SETUP OPERATOR Hospital Encounter [facility] [address] [place] [address] Chris Kay NP Cervicogenic headache (Primary Dx); Cervicalgia; Cervical spondylosis without myelopathy; Cervical spinal stenosis Discharge Disposition: Discharge to home or self care 11/24/2024 9:15 AM TOOL SHAPER SETUP OPERATOR - 11/24/2024 11:59 PM TOOL SHAPER SETUP OPERATOR Hospital Encounter [facility] [address] [place] [address] Rashaun Alfaro MD Cervical spinal stenosis [M48.02]; Cervical spondylosis without myelopathy; Cervical spinal stenosis Discharge Disposition: Discharge to home or self care 11/09/2024 11:59 AM TOOL SHAPER SETUP OPERATOR - 11/09/2024 11:59 PM TOOL SHAPER SETUP OPERATOR Hospital Encounter [facility] [address] [place] [address] Chris Kay NP Cervical spinal stenosis [M48.02] (Primary Dx); Cervical spondylosis without myelopathy; Cervicalgia; Cervicogenic headache Discharge Disposition: Discharge to home or self care 10/13/2024 1:55 PM TOOL SHAPER SETUP OPERATOR - 10/13/2024 11:59 PM TOOL SHAPER SETUP OPERATOR Hospital Encounter [facility] [address] [place] [address] Rashaun Alfaro MD Cervical spinal stenosis [M48.02] (Primary Dx); Cervical spondylosis without myelopathy; Cervicalgia; Radiculopathy, cervical region Discharge Disposition: Discharge to home or self care 10/04/2024 Documentation [facility] [address] [place] [address] yLnn Fox RN 09/30/2024 8:40 AM TOOL SHAPER SETUP OPERATOR - 09/30/2024 11:59 PM TOOL SHAPER SETUP OPERATOR Hospital Encounter [facility] [address] [place] [address] Chris Kay NP Cervical spondylosis without myelopathy (Primary Dx); Cervicalgia; Hx of migraines; Radiculopathy, cervical region; Cervical spinal stenosis Discharge Disposition: Discharge to home or self care 09/20/2024 12:19 PM TOOL SHAPER SETUP OPERATOR - 09/20/2024 11:59 PM TOOL SHAPER SETUP OPERATOR Hospital Encounter [facility] [address] [place] [address] Cervicalgia; Cervical spondylosis without myelopathy Discharge Disposition: Discharge to home or self care from Last 3 Months Allergies Active Allergy Reactions Criticality Noted Date [...] (80 mg total) by mouth as needed 4 Active potassium citrate ER (UROCIT-K) 10 [...] of unspecified type 12/06/2021 IO (intestinal obstruction) ([facility]) 12/05/2021 Lumbar radiculopathy 12/05/2020 Overview (12/05/2020): Added automatically from request for surgery [id number] Spinal cord stimulator status 11/24/2018 Overview (11/24/2018): Added automatically from request for surgery [id number] Chronic left-sided low back pain with left-sided sciatica 11/24/2018 Overview (11/24/2018): Added automatically from request for surgery [id number] Abdominal pain Other chronic pain Hyperlipidemia Tobacco dependence Resolved Problems Problem Noted Date Diagnosed Date Resolved Date Opioid withdrawal 02/14/2020 12/09/2023 Social History Tobacco Use Types Packs/Day Years [...] on file Legal Sex Male 11:49 PM TOOL SHAPER SETUP OPERATOR Gender Identity Not on file Sexual Orientation Not on file Last Filed Vital Signs Vital Sign Reading Time Taken Comments Blood Pressure 136/86 12/01/2024 10:22 AM TOOL SHAPER SETUP OPERATOR Pulse 71 12/01/2024 10:22 AM TOOL SHAPER SETUP OPERATOR Temperature 37.1 C (98.7 F) 11/24/2024 9:27 AM TOOL SHAPER SETUP OPERATOR Respiratory Rate 16 12/01/2024 10:2 2 AM TOOL SHAPER SETUP OPERATOR Oxygen Saturation 99% 12/01/2024 10: 22 AM TOOL SHAPER SETUP OPERATOR Inhaled Oxygen Concentration - - Weight 115.8 kg (255 lb 3.2 oz) 024 12:42 PM TOOL SHAPER SETUP OPERATOR Height 182.9 cm (6') 12/17/2023 12:42 PM TOOL SHAPER SETUP OPERATOR Body Mass Index 34.61 12/17/2023 12:42 PM TOOL SHAPER SETUP OPERATOR Plan of Treatment Not on file Medical Devices Implanted Type Area Algorithm Developer Device Identifier Shelf Expiration Date Model / Serial / Lot [employer] 1192 Oliveros-Lock [place] Lead - [id number] Implanted:Qty: 2 on 12/18/2018 by Jesse Hollis MD at [facility] N/A: Spine Thoracic [employer] 11/10/2020 1192 / / [id number] [employer] 3186ans Octrode 60cm 8 Electrode Lead Percutaneous Kit Neurostimulator - [id number] Implanted:Qty: 1 on 12/18/2018 by Jesse Hollis MD at [facility] N/A: Spine Thoracic [employer] 08/10/2020 [id number] / / [id number] [employer] 3186ans Octrode 60cm 8 Electrode Lead Percutaneous Kit Neurostimulator - [id number] Implanted:Qty: 1 on 12/18/2018 by Jesse Hollis MD at [facility] N/A: Spine Thoracic [employer] 08/10/2020 [id number] / / [id number] [employer] 3662 Proclaim Elite 2.63inx1.98in 7 Ipg Implantable Recharge Free - [id number] Implanted:Qty: 1 on 12/18/2018 by Jesse Hollis MD at [facility] N/A: Back [employer] 11/11/2020 3662 / / [id number] Medtronic Neuro 8637-20 Synchromed Ii .78in [place] Filter Mesh Pouch Programmable - [id number] - [id number] Implanted:Qty: 1 on 03/09/2021 by Jesse Hollis MD at [facility] N/A: Abdomen [employer] 08/09/2022 8637-20 / [id number] / [employer] 8780 Ascenda 4fr .5mm 114cm 86cm 2 Piece Connector Pin Flexible Closed - [id number] Implanted:Qty: 1 on 03/09/2021 by Jesse Hollis MD at [facility] N/A: Back [employer] 11/17/2022 8780 / / [id number] Procedures Procedure Name Priority Date/Time Associated Diagnosis Comments PAIN MGMT IMAGING CERVICAL/THORACIC FACET/MEDIAL BRANCH BLOCK BILATERAL Schedule Routine, Read Routine (OP Routine) 11/24/2024 9:46 AM TOOL SHAPER SETUP OPERATOR Cervical spinal stenosis Cervical spondylosis without myelopathy PAIN MGMT IMAGING CERVICAL/THORACIC EPIDURAL STEROID INJ Schedule Routine, Read Routine (OP Routine) 10/13/2024 2:37 PM TOOL SHAPER SETUP OPERATOR Cervical spondylosis without myelopathy Cervicalgia Radiculopathy, cervical region CT CERVICAL SPINE WO CONTRAST Schedule Routine, Read Routine (OP Routine) 09/20/2024 12:36 PM TOOL SHAPER SETUP OPERATOR Cervicalgia Cervical spondylosis without myelopathy SERUM HEPATITIS C AB Routine 12/14/2015 8:09 AM TOOL SHAPER SETUP OPERATOR from Last 3 Months or Most Recently Relevant to Health Maintenance Results * Imaging Cervical/Thoracic Facet Medial Branch Block Bilateral ([id number]) (11/24/2024 9:46 AM TOOL SHAPER SETUP OPERATOR) Narrative RAD_PACS_ - 11/24/2024 9:46 AM TOOL SHAPER SETUP OPERATOR The images from this study are not interpreted by Radiology. Please refer to the physician's procedure / OR operative note. us Chris Kay ABRASIVE GRINDER IMG PAIN MGMT PROCEDURES Yael l Result Performing Organization Address [facility] de Phone Number RAD_PACS_CH * Imaging Cervical/Thoracic Epidural Steroid INJ ([id number]) (10/13/2024 2:37 PM TOOL SHAPER SETUP OPERATOR) Narrative RAD_PACS_ - 10/13/2024 2:38 PM TOOL SHAPER SETUP OPERATOR The images from this study are not interpreted by Radiology. Please refer to the physician's procedure / OR operative note. Chris Kay ABRASIVE GRINDER IMG PAIN MGMT PROCEDURES Yael l Result Performing Organization Address [facility] de Phone Number RAD_PACS_CH * CT cervical spine without contrast (09/20/2024 12:36 PM TOOL SHAPER SETUP OPERATOR) Anatomical Region Laterality Modality Spine N/A Computed Tomogra phy 09/22/2024 7:06 AM TOOL SHAPER SETUP OPERATOR Narrative 09/22/2024 7:47 AM TOOL SHAPER SETUP OPERATOR EXAM DESCRIPTION: CT CERVICAL SPINE WO [...] and facet arthropathy with moderate right and fohc-xo-wmnqingg left osseous neural foraminal narrowing. C5-C6: Posterior disc osteophyte complex and thickened ligamentum flavum. Oshj-rj-xozzjtpd osseous spinal canal stenosis. Uncovertebral spurring and facet arthropathy with moderate osseous neural foraminal narrowing. C6-C7: Posterior disc osteophyte complex and thickened ligamentum flavum. Pizq-fd-pqekhjvw osseous spinal canal stenosis. Uncovertebral spurring and facet arthropathy with severe neural foraminal narrowing. C7-T1: Posterior disc osteophyte complex and thickened ligamentum flavum. No significant osseous spinal canal stenosis. Uncovertebral spurring and facet arthropathy with mild right and hkrd-cj-xswnelfn left osseous neural foraminal narrowing. UPPER THORACIC: [...] Chuck Espinal D.O. AP: AP Report ID: [id number] Reading Location: [place] [address] Procedure Note Chuck Espinal, DO - 09/22/2024 [...] spurring andfacet arthropathy with moderate right and bnis-zv-jcpgmcic left osseous neural foraminal narrowing. C5-C6: Posterior disc osteophyte complex and thickened ligamentum flavum. Dexl-re-eytfhobq osseous spinal canal stenosis. Uncovertebral spurringand facet arthropathy with moderate osseous neural foraminal narrowing. C6-C7: Posterior disc osteophyte complex and thickened ligamentum flavum. Lfwq-qt-suoakapk osseous spinal canal stenosis. Uncovertebral spurringand facet arthropathy with severe neural foraminal narrowing. C7-T1: Posterior disc osteophyte complex and thickened ligamentum flavum.No significant osseous spinal canal stenosis. Uncovertebral spurring andfacet arthropathy with mild right and shoz-xg-ppltkewy left osseous neuralforaminal narrowing. UPPER THORACIC: Incompletely [...] Chuck Espinal D.O. AP: AP Report ID: [id number] Reading Location: [place] [address] Chris Kay ABRASIVE GRINDER IMG CT PROCEDURES Final Resul t * Serum Hepatitis C ab (12/14/2015 8:09 AM TOOL SHAPER SETUP OPERATOR) Pathologist [facility] HCV ab Negative Negative HISTORICAL RESULTS Serum 12/14/2015 8:09 AM TOOL SHAPER SETUP OPERATOR us Historical Provider LAB BLOOD ORDERABLES Yael reese Result HISTORICAL RESULTS from Last 3 Months or Most Recently Relevant to Health Maintenance Insurance MEDICARE IDAZ MEDICARE Advance Directives For more information, please contact: [phone] * Full Code (Latest Code Status on [...] 11:54 PM 06/13/2018 8:17 PM Care Teams Radar Signal Processing Engineer Relationship Specialty Start Date End Date Felipe Sprague MD [address] [place] [address] PCP - General Family Medicine 11/19/22 Amarilys Macdonald Funeral Arrangement Director Addiction Medicine 10/17/20 Medardo Carranza MD [address] [place] [address] [place] [address] Referring Physician Family Medicine 12/03/21 Puma Andrade MD [address] [place] [address] [place] [address] Consulting Physician Endocrinology 12/06/21 [place] [address] [place] [address] Nurse Practitioner Pain Management 09/30/24
--- OUTSIDE RECORDS SUMMARY | 2024-12-20 22:49 | XMS_ITS | Encounter Summary ---
Author Organization [facility] Address [facility] [place] [address] Care Team Providers Care Pulp Machine Operator Name Role Phone Felipe Sprague MD Primary Care Provider [phone] Encounter Details Date Type Department Care Team (Late st Contact Info) Description 04/02/2023 Abstract [facility] [address] [place] [id number] Parish Thomas MD Social History Tobacco Use Types Packs/Day Years Used Date Smoking Tobacco: Every Day Cigarettes 1 25 Smokeless Tobacco: Current Chew Alcohol Use Standard Drinks/Week Comments No 0 [...] AM CDT Sexual Orientation Not on file COVID-19 Exposure Response Date Recorded In the last 10 days, have yo u been in contact with someone who was confirmed or suspected to have Coronavirus/COVID-19? No / Unsure 04/03/2023 12:15 AM CDT documented as of this encounter Plan of Treatment Not on file documented as of this encounter Visit Diagnoses Not on filedocumented in this encounter Care Teams Pulp Machine Operator Relationship Specialty Start Date End Date Felipe Sprague MD [address] [place] [phone] PCP - General FAMILY PRACTICE 09/05/22 documented as of this encounter
--- NOTE | 2024-12-20 22:55 | ED_ITS ---
HPI - URI/Sore Throat General Chief Complaint: Upper Respiratory Infection Stated Complaint: cold chills, dehydration Time Seen by Provider: 12/20/24 22:51 Source: patient Mode of arrival: ambulatory Limitations: no limitations History of Present Illness HPI Narrative: This is a 59-year-old male, with history of GERD, who presents to the emergency department complaining of nasal congestion, chills and subjective fevers for the past day. The patient states he has also had increased urination with drinking fluids. he denies any known sick contacts or recent travel. He has no other complaints at this. Related Data Home Medications ?Medication ?Instructions ?Recorded ?Confirmed ?Last Taken ?Type clopidogrel 75 mg tablet (Plavix) 75 mg PO DAILY 07/13/23 12/20/24 Unknown History Allergies Allergy/AdvReac Type Severity Reaction Status Date / Time prednisone Allergy Swelling Verified 12/30/23 19:57 tramadol Allergy Unknown Verified 12/30/23 19:57 Review of Systems Review of Systems: All systems reviewed & are unremarkable except as noted in HPI and below PMFSH Past Medical History Medical History Chronic GERD Abdominal pain Chronic low back pain Toothache Surgical History Surgical History Spinal cord stimulator dysfunction Family History Family History Other Depression Diabetes mellitus Heart disease Hypertension Social History Social History Smoking status: Current every day smoker Tobacco type: smokeless tobacco Alcohol intake: former Substance use: never Do You Feel Safe in your Home?: Yes Lack of Transportation: No Lack of Food: Never True Current Housing: I Have Housing Concerned About Future Housing: No Difficulty Paying Gas/Electric Bills: No Difficulty Paying for Meds: No Currently Unemployed: No Education: Trade/Vocational Certificate Difficulty w/ Childcare or Family Care: No Living arrangements: alone Exam Narrative: GENERAL: Well-developed, well-nourished, and in no acute distress. HEAD: Normocephalic, atraumatic. EYES: PERRLA and EOMI. CHEST: Clear to auscultation. No respiratory distress. No wheezes rales or rhonchi HEART: Regular rate and rhythm. No murmur heard. Normal peripheral pulses. ABDOMEN: Soft, nontender, nondistended, normal active bowel sounds. EXTREMITIES: Normal range of motion. No edema. SKIN: Warm, dry, no rash. NEURO: Alert and oriented x3. No focal deficit. Moving all 4 limbs spontaneously PSYCH: Normal mood and affect. Course Course Emergency Course: 23:50 - The patient tested negative for COVID, influenza and RSV. I suspect a separate viral upper respiratory. Will discharge with recommendation for decongestants or hydration and primary care follow-up. I discussed the findings and recommendations with The patient. Discussed return and emergency precautions including signs/symptoms of ACS and respiratory distress. The patient voiced understanding and agreement with the plan. All questions answered to his satisfaction. Vital Signs Vital signs: Vital Signs Temperature 98.8 F 12/20/24 22:45 Pulse Rate 79 12/20/24 22:45 Respiratory Rate 18 12/20/24 22:45 Blood Pressure 165/95 H 12/20/24 22:45 Pulse Oximetry 98 12/20/24 22:45 Oxygen Delivery Room Air 12/20/24 22:45 Temperature 98.8 F 12/20/24 22:45 Pulse Rate 79 12/20/24 22:45 Respiratory Rate 18 12/20/24 22:45 Blood Pressure 165/95 H 12/20/24 22:45 Pulse Oximetry 98 12/20/24 22:45 Oxygen Delivery Room Air 12/20/24 22:45 MDM - URI/Sore Throat MDM Narrative Medical decision making narrative: plan:, symptomatic control, reassess Differential Diagnosis Differential diagnosis: Likely upper respiratory infection, viral infection, influenza and other ( COVID, RSV, other) Lab Data Labs: Lab Results 12/20/24 Range/Units 23:05 Influenza A (RT-PCR) Negative (Negative) Influenza B (RT-PCR) Negative (Negative) RSV (RT-PCR) Negative (Negative) SARS-CoV-2 RNA (RT-PCR) Negative (Negative) Discharge Plan Discharge Clinical Impression: Upper respiratory infection Qualifiers: URI type: unspecified URI Qualified Code(s): J06.9 - Acute upper respiratory infection, unspecified Patient Disposition: Home, Self-Care Condition: Stable Instructions: Antibiotic Form, Cold Symptoms (ED) Additional Instructions: You were seen in the emergency department. You tested negative for COVID, influenza and RSV. Recommend decongested medications, plenty of fluids and follow up with your primary care doctor. If you develop chest pain, shortness of breath, loss consciousness, or if you have other emergent concerns for life, limb, or eyesight, return to the emergency department. Patient Language: Sinhala Prescriptions: No Action clopidogrel [Plavix] 75 mg tablet 75 mg PO DAILY Follow-up/Referrals: Felipe Sprague M.D. [Primary Care Provider] - 1 Week Time of Disposition: 23:52
--- OUTSIDE RECORDS SUMMARY | 2024-12-20 22:57 | XMS_ITS | CONTINUITY OF CARE DOCUMENT ---
Author Name masoud meredith Address Unknown Organization [facility] Address [address] [place] [address] Phone [phone] Care Team Providers Care Svp Chief Marketing Officer Name Role Phone Tiburcio REYNOLDS, Kenyon Mathis Unavailable [phone] LANDON REYNOLDS, SONIDO Mcarthur Unavailable Radha REYNOLDS, Celestine Unavailable PROBLEMS Condition Status [...] In-person encounter Office Visit Kenyon Dey MD [facility] Cardiology examination 7 - 1 In-person encounter Office Visit Kenyon Dey MD [facility] 2 - 2023/07/1 3 In-person encounter Office Visit Kenyon Dey MD [facility] Obesity 3 - 4 In-person encounter Office Visit Kenyon Dey MD [facility] Office PAD - RLE S/P stent R iliac arteryCardiology examinationCHEST PAINPalpitationsHyperlipidemia 3 - 4 In-person encounter Office Visit Kenyon Dey MD [facility] PAD - BLE with rest painPAD - LLE with rest pain 8 - 8 In-person encounter Office Visit Dong Bass MD [facility] 9 - 0 In-person encounter Office Visit Kenyon Dey MD [facility] Office Other symptoms involving cardiovascular systemPAD - RLE S/P stent R iliac arteryTobacco abuse 7 - 9 In-person encounter Office Visit Jac Hill MD [facility] Office Leg painPAD - RLE S/P stent [...] Alla Neri blood pressure, diastolic 86 mm[Hg] Ny rohini Neri blood pressure, systolic 131 mm[Hg] [...] Rox He height E&M 72 [in_i] Alla eH weight E&M 218 [lb_av] Alla He ALLERGIES [...] Normal Absolute Neutrophil count 2961 cells/mcL [employer] [id number] Normal mean platelet volume 11.5 fL [employer] [...] Observation Value Provider alcohol use no Kenyon Dye MD passive cigarette sm reilly exposure yes [...] Payer name Policy type / Coverage type [facility] Medicaid 9 [id number] [place] [employer] Medicare [id number] ADVANCE DIRECTIVES Name Date DISCUSSED - NO DECISION MADE TREATMENT PLAN Date Name Performer [id number],C, T he patient has hx of PVD. 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 C/o of pain in right leg. CT angiography total occluison of right iliac artery and moderate stenosis of left iliac artery. Kenyon Dey MD [id number],C, S /P successful intervention of totally occluded right iliac artery. The pt reports signifciant improvement of the healing of the right foot. LDL is 143. Kenyon Delfina Tiburcio REYNOLDS [id number],C, Kenyon Mathis iTburcio REYNOLDS [id number],S, S till feels occasional chest pain. His updated medication list for this problem includes: Aspirin 81 Mg Tablet,delayed Release (dr/ec) (Aspirin) ..... Take 1 tablet by mouth once a day Plavix 75 Mg Tablet (Clopidogrel) ..... Take 1 tablet by mouth once a day take 1 tablet by mouth every day Kenyon Delfina Tiburcio REYNOLDS [id number],S, S till feels occasional palpitations and chest tightness. E cho showed 60%. S tress test was normal. H olter monitor showed few PVCs, but overall was normal. Kenyon Dey MD [id number],S, O nly symptomatic when walking, feels tightness in the left calf. Kenyon Delfina Tiburcio REYNOLDS [id number],C, LDL is 143, will start Crestor 40 mg daily.. In a few months, will check lipids, LFTs, Lp(a), CRP, UACR. Carito Harris [id number],C, T he Patient was reencouraged to stop smoking. Carito Harris [id number],C,H e reports palpitations and occasional chest discomfort, [...] tablet by mouth every day Carito Harris [id number],C,S /P successful intervention of totally occluded right iliac artery. [place] pt reports signifciant improvement of the healing of the right foot. LDL is 143, will start Crestor 40 mg daily. Carito Wallaceyuval [id number],C,Stopped smoki ng Kenyon Dey MD [id number],C, O rders: 9 9205 HIGH 60-74 min (CPT-30876) A rterial Duplex Bi-Lower EX (CPT-91225) V enous Doppler Bilateral LE - Reflux (CPT-59458) A IF Diagnostic - [facility] (CPT-08943) A IF Intervention - [facility] (CPT-38274) Kenyon Dey MD [id number],S,T he patient has hx of PVD. underwent [...] O rders: 9 9205 HIGH 60-74 min (CPT-26773) A rterial Duplex Bi-Lower EX (CPT-50758) V enous Doppler Bilateral LE - Reflux (CPT-61200) A IF Diagnostic - [facility] (CPT-15002) A IF Intervention - [facility] (CPT-73425) Kenyon Dey MD Cardiology:The patie nt has [...] Cardiology: O rders: 9 9215 HIGH Complex (CPT-10859) A rterial Duplex Bi-Lower EX (CPT-29728) A rterial - SENSILASE (CPT-22857) C arotid Duplex Bilateral (CPT-23677) Jac Hill MD Cardiology: O rders: 9 9215 HIGH Complex (CPT-55310) A rterial Duplex Bi-Lower EX (CPT-58538) A rterial - SENSILASE (CPT-42043) C arotid Duplex Bilateral (CPT-67886) Jac Hill MD Date Name COMPREHENSIVE METABO [...] EKG Dong Bass MD complete d SNOMED-CT: 821753509 Smoking Cessation Counseling Kenyon Dey MD completed SNOMED-CT: 464190156 771826 Current Medications Documented Kenyon Dey MD completed SNOMED-CT: 764069848 604420 Current Medications Documented Jac Hill MD completed SNOMED-CT: 028240632 Smoking Cessation Counseling Jac Hill MD completed SNOMED-CT: 47403444 Physical Exam, Performed: Pulse Exam of Foot Jac Hill MD completed EKG Jac Hill MD completed SNOMED-CT: 142770978 559595 Current Medications Documented Jac Hill MD completed
[2024-12-20 23:44] LABS: SARS-CoV-2 RNA PCR Negative (Negative)
[2024-12-20 23:46] LABS: Influenza A QL RT-PCR Negative (Negative); Influenza B QL RT-PCR Negative (Negative); RSV RNA, RT-PCR Negative (Negative)
[2024-12-20 23:55] VITALS: BP 144/88; PULSE 85; RESP 18; TEMP 36.8; O2SAT 98
== END 2024-12-20 23:56 | disposition home or self-care (01) ==
PROVIDERS: Emergency Provider Preventive Medicine Aerospace Medicine; PCP Family Medicine
DX: J06.9 Acute upper respiratory infection, unspecified (principal); F17.290 Nicotine dependence, other tobacco product, uncomplicated; Z20.822 Contact with and (suspected) exposure to COVID-19
CPT/HCPCS: 87637; 99283